=== PATIENT | female | born 1995 | race Caucasian/White ===

== ENCOUNTER 2020-09-28 17:40 | Emergency (ER) | payer MEDICAID, SELFPAY ==
[2020-09-28] VITALS (19 sets, daily range): BP systolic 93–138; BP diastolic 51–115; PULSE 56–80; RESP 13–23; TEMP 36.5; O2SAT 10–100
--- NOTE | 2020-09-28 17:30 | RT.EKG_ITS ---
APPROVED REPORT Exam: Resting ECG Reason for Exam: syncopy Patient Location: E HR:61 bpm ECG Measurements Heart Rate 61 AXIS ME 160 P 8 QRSd 96 QRS 52 QT 399 T 50 QTc 403 Conclusion Sinus rhythm...normal P axis, V-rate 60- 99
[2020-09-28] MEDS: Normal Saline Flush 10 ML SYR IVP (18:00)
[2020-09-28] MEDS: Normal Saline 1,000 ML 1000 ML IV (18:00)
[2020-09-28] MEDS: Ondansetron 4 MG/2 ML VIAL IVP (18:00)
--- NOTE | 2020-09-28 18:00 | DI.CT_ITS ---
Exam(s) CT HEAD CERVICAL SPINE WO EXAM: CT HEAD CERVICAL SPINE WO CLINICAL HISTORY: Syncope, mild neck pain. TECHNIQUE: Imaging Protocol: Axial computed tomography images with coronal and sagittal reformatted images were created and reviewed COMPARISON: No exams were available for comparison FINDINGS: BRAIN: There are no skull fractures nor fluid in the visualized paranasal sinuses. There is no evidence of intracranial hemorrhage, mass effect, or shift of midline structures. There are no extra-axial fluid collections. The ventricles are not enlarged or shifted and there is no blo od within the ventricular system nor within the basal cisterns. Incidentally noted are symmetrical benign-appearing bony variants in both sides middle cranial fossa just anterior to the temporal lobes. CERVICAL SPINE: There is no evidence of fracture nor listhesis. No significant prevertebral soft tissue swelling. There is no significant facet joint malalignment. No significant osseous lesions evident. IMPRESSION: No acute intracranial findings on this noninfused CT scan of the brain. No evidence of cervical spine fracture, malalignment, nor acute compromise of the cervical spinal can al. Incidentally noted are symmetrical addition bone densities both sides of the intracranial compartment anterior to the temporal lobes. This is developmental in appearance and unrelated to the present tr auma. RADIATION DOSE DELIVERED: 1,463.31mGy.cm Total DLP DATA REPOSITORY: All CT scans at this facility are submitted to the National Radiology Data Registry (NRDR) Dose Index Registry (DIR) with the [employer] (A[employer]). RADIATION OPTIMIZATION: All CT scans at this facility use at least one of these dose optimization te chniques: automated exposure control; mA and/or kV adjustment per patient size (includes targeted exa ms where dose is matched to clinical indication); or iterative reconstruction.
--- NOTE | 2020-09-28 18:00 | DI.RAD_ITS ---
Exam(s) XR CHEST 2V PA LATERAL EXAM: XR CHEST 2V PA LATERAL CLINICAL HISTORY: syncope. TECHNIQUE: 2D digital imaging was performed. COMPARISON: No exams were available for comparison FINDINGS: Heart size is normal. The mediastinum is not widened. Lungs are clear. No infiltrates nor pleural effusions. IMPRESSION: No acute pulmonary findings. DATA REPOSITORY: RADIATION DOSE DELIVERED:
--- NOTE | 2020-09-28 18:13 | ED.GENADUL_ITS ---
Discharge Plan Disposition Patient Disposition: HOME Condition: Improving Discharge Details Clinical Impression: Vasovagal syncope ED Provider: Polo Carreon Home Meds and New Rx's Prescriptions: Continued Nexplanon 68 mg Implant SUBDERMAL RF: 0 Discharge Instructions Instructions: Syncope (ED) Additional Instructions: We will ask career based intervention coordinator to arrange a follow-up for you in primary care clinic. I recommend you avoid using concentrated marijuana products as they can cause cardiac toxicity. Home to rest this evening. Your work-up today including CAT scan of the head, chest x-ray and laboratories were reassuring. Small, frequent sips of fluids to maintain hydration. Medical Decision Making 25-year-old female presents from home. She states she had to marijuana pipe dabs, which she states is not unusual for her. She feels she gets it from a stable source. Following this she was standing in her kitchen, felt flushed and tingly, became lightheaded and sank to the floor with the assist of family. She believes she was briefly unconscious. She had nausea and vomiting briefly. Patient denies having chest pain, no headache. She is now feeling improved. She was ER with blood pressure proxy 100/50 when I interview her. Her exam is reassuring. Differential diagnosis is broad and includes vasoVagal mediated syncope, dehydration, electrolyte abnormality, substance abuse. Patient IV access established, screening EKG obtained she is referred for CT scan of the head, screening chest x-ray, laboratories and urinalysis. Labs note slight low potassium 3.3. Reassuring CBC. Troponin negative. Imaging: Chest x-ray no acute findings. CT scan of the head and cervical spine without acute intracranial abnormality and no acute fracture or malalignment seen. Patient improved, ate and drank fluids, felt better. I do feel she is for discharge to home. We will arrange outpatient follow-up for her in primary care clinic. She is admonished to avoid concentrated marijuana products. Lab Data Lab results reviewed: Yes I reviewed the patient's lab results. Labs: Laboratory Results - last 24 hr 09/28/20 09/28/20 09/28/20 18:00 18:00 18:25 WBC 9.32 RBC 4.63 Hgb 14.0 Hct 42.5 MCV 91.8 MCH 30.2 MCHC 32.9 RDW 11.7 Plt Count 277 MPV 9.2 Immature Gran % 0.8 Neutrophils % 63.5 Lymphocytes % 23.2 Monocytes % 9.3 Eosinophils % 2.4 Basophils % 0.8 Nucleated RBC % 0 Absolute Neutrophils 5.93 Absolute Lymphocytes 2.16 Absolute Monocytes 0.87 H Absolute Eosinophils 0.22 Absolute Basophils 0.07 Sodium 142 Potassium 3.3 L Chloride 105 Carbon Dioxide 28.2 Anion Gap 8.8 BUN 8 Creatinine 1.1 H Estimated GFR/1.73 m2 >= 60.00 Glucose 93 Calcium 8.7 Magnesium 2.0 Total Bilirubin 1.0 AST 10 L ALT 20 Alkaline Phosphatase 70 Troponin I < 0.05 Total Protein 7.9 Albumin 4.1 Urine Color Yellow Urine Clarity Clear Urine pH 6.5 Ur Specific [place] 1.020 Urine Protein 30 H Urine Ketones Negative Urine Blood Negative Urine Nitrite Negative Urine Bilirubin Negative Urine Urobilinogen 0.2 Ur Leukocyte Esterase Negative Urine RBC 0-2 Urine WBC 3-5 Ur Epithelial Cells Moderate Urine Crystals Negative Urine Bacteria Few Urine Casts 0-2 hyaline Urine Mucus Negative Ur Culture Indicated? No/sq. contamination Urine Glucose Negative HPI General Mode of arrival: EMS . Date/Time Provider Initiated Documentation: 09/28/20 17:43 . Limitations to Documentation: no limitations . Information obtained by: patient and EMS . History of Present Illness 25 year old F presents to the emergency department with the chief complaint of Syncope and vomiting, described as moderate, and is localized to the abdomen. Patient reports no radiation. Patient started experiencing this minute(s) and it has been now resolved. No relieving factors improve symptom(s), Movement worsens symptoms . Patient notes nausea/vomiting and syncope; denies chest pain, headaches, loss of appetite and shortness of breath. Patient did receive the following treatments prior to arrival, none Related Data Home Medications Medication Instructions Recorded Confirmed Nexplanon SUBDERMAL 09/28/20 Allergies Allergy/AdvReac Type Severity Reaction Status Date / Time ciprofloxacin AdvReac Intermediate Nausea Unverified 09/28/20 18:30 General Stated Complaint: Dizzy/Sync VERN: 2 Review of Systems Narrative: 6 systems reviewed and otherwise neg PFSH Social History Smoking risk assessment performed?: No Alcohol Intake: never Drug use: Daily Substance use type: marijuana Do you feel safe at home: Yes Do you feel safe in your relationship?: Yes Exam Narrative Exam Narrative: GEN: awake, alert, oriented 3. Pleasant, well groomed, interactive. HEAD: Normocephalic, atraumatic ENT: Mucous membranes moist, oropharynx unremarkable, External ear exam u nremarkable EYES: PERRL, EOMI NECK: Full ROM, no RAFAEL, no menigismus CHEST/RESP: Nontender, clear to auscultation bilateral, no wheeze/rhonchi/rales CARDIOVASCULAR: RRR, no murmur, rub chriss. 2+ Rad pulse bilateral ABDOMEN: Soft, nontender, no mass. +Bowel sounds EXT: Full ROM, no edema, no rash Neuro: Grossly normal neurologic exam, conversant, interactive. Psych: Speech fluent, thoughts congruent, affect normal Course Vital Signs Vital signs: Vital Signs Temperature 36.5 C 09/28/20 17:52 Pulse 80 09/28/20 17:52 Respiratory Rate 16 09/28/20 17:52 Blood Pressure 135/115 H 09/28/20 17:52 Pulse Oximetry 10 L 09/28/20 17:52 Temperature 36.5 C 09/28/20 17:52 Temperature Source Skin 09/28/20 17:52 Pulse 80 09/28/20 17:52 Respiratory Rate 16 09/28/20 17:52 Blood Pressure 135/115 H 09/28/20 17:52 Blood Pressure Position Supine 09/28/20 17:52 Pulse Oximetry 10 L 09/28/20 17:52 Oxygen Delivery Method Room Air 09/28/20 17:52 Oxygen Flow Rate 0 09/28/20 17:52 Pain Level 0 09/28/20 17:52
[2020-09-28 18:18] LABS: Abs Immature Grans 0.07 10^3/uL (0.0-0.06); Absolute Basophil Count 0.07 10^3/uL (0.0-0.2); Absolute Eosinophil Count 0.22 10^3/uL (0.0-0.7); Absolute Lymphocyte Count 2.16 10^3/uL (1.2-3.4); Absolute Monocyte Count 0.87 10^3/uL (0.1-0.8); Absolute Neutrophil Count 5.93 10^3/uL (1.2-6.7); Basophils % 0.8; Eosinophils % 2.4; HCT 42.5 % (36.0-46.0); Immature Grans % 0.8; Lymphocytes % 23.2; MCH 30.2 pg (27.0-33.0); MCHC 32.9 % (32.0-36.0); MCV 91.8 fL (80-95); MPV 9.2 fL (8.0-11.0); Monocytes % 9.3; Neutrophils % 63.5; Nucleated RBC 0 %; Platelet Count 277 10^3/uL (130-400); RBC 4.63 10^6/uL (3.93-5.22); RDW 11.7 % (11.7-14.6); RDW-SD 39.8 fL; WBC 9.32 10^3/uL (4.4-10.8)
[2020-09-28 18:35] LABS: ALT 20 U/L (14-59); AST 10 U/L (15-37); Albumin 4.1 g/dL (3.4-5.0); Alkaline Phosphatase 70 U/L (46-116); Anion Gap 8.8 mmol/L (3-11); BUN 8 mg/dL (7-18); CO2 28.2 mmol/L (21.0-32.0); CREATININE 1.1 mg/dL (0.55-1.02); Calcium 8.7 mg/dL (8.5-10.1); Chloride 105 mmol/L (98-107); Glucose 93 mg/dL (74-106); Potassium 3.3 mmol/L (3.5-5.1); Sodium 142 mmol/L (136-145); Total Protein 7.9 g/dL (6.4-8.2)
[2020-09-28 18:36] LABS: Troponin I < 0.05 ng/mL (<0.06)
[2020-09-28 18:46] LABS: Bilirubin Negative (Negative); Blood Negative (Negative); Clarity Clear (Clear); Glucose Negative (Negative); Ketones Negative (Negative); Leukocyte Esterase Negative (Negative); Nitrite Negative (Negative); Urobilinogen 0.2 EU/dL (Up TO 0.2); pH 6.5 (5-8)
[2020-09-28 18:57] LABS: Bacteria Few HPF (Negative); C & S Indicated? No/Sq. Contamination; Casts 0-2 Hyaline LPF (Negative); Crystals Negative HPF (Negative); Epithelial Cells Moderate HPF (Negative); Mucus Negative (Negative); RBC 0-2 HPF (0-2)
--- NOTE | 2020-09-28 19:13 | DI.VRAD_ITS ---
PROCEDURE INFORMATION: Exam: XR Chest Exam date and time: 09/28/2020 6:48 PM Age: 25 years old Clinical indication: Other: Syncope TECHNIQUE: Imaging protocol: XR of the chest. Views: 2 views. COMPARISON: No relevant prior studies available. FINDINGS: Lungs: Unremarkable. No consolidation. Pleural spaces: Unremarkable. No pleural effusion. No pneumothorax. Heart/Mediastinum: Unremarkable. No cardiomegaly. Bones/joints: Unremarkable. IMPRESSION: No acute findings. Dictated and Authenticated by: Aj Rabago MD. Ordering:DEEP Cuellar MD
--- NOTE | 2020-09-28 19:22 | NUR.NOTE ---
Nursing Notereferal sent to cm for establish pcp and make appt for syncope 09/28/20:
--- NOTE | 2020-09-28 19:26 | DI.VRAD_ITS ---
PROCEDURE INFORMATION: Exam: CT Head Without Contrast Exam date and time: 09/28/2020 6:11 PM Age: 25 years old Clinical indication: Other: Syncope, mild neck pain TECHNIQUE: Imaging protocol: Computed tomography of the head without contrast. Total images: 2336 Radiation optimization: All CT scans at this facility use at least one of these dose optimization techniques: automated exposure control; mA and/or kV adjustment per patient size (includes targeted exams where dose is matched to clinical indication); or iterative reconstruction. COMPARISON: No relevant prior studies available. FINDINGS: Brain: No intra or extra axial bleed. No edema or mass effect. The central garcia structures and cortical ribbon are maintained. Cerebral ventricles: No hydrocephalus. Basal cisterns are patent. Bones/joints: No significant bony abnormality. No fracture. Paranasal sinuses: No mucosal thickening or fluid levels. Mastoid air cells: Mastoid air cells are clear. Orbital cavity: Unremarkable. Soft tissues: Unremarkable. IMPRESSION: No acute intracranial abnormality. No bleed. PROCEDURE INFORMATION: Exam: CT Cervical Spine Without Contrast Exam date and time: 09/28/2020 6:11 PM Age: 25 years old Clinical indication: Other: Syncope, mild neck pain TECHNIQUE: Imaging protocol: Computed tomography images of the cervical spine without contrast. Radiation optimization: All CT scans at this facility use at least one of these dose optimization techniques: automated exposure control; mA and/or kV adjustment per patient size (includes targeted exams where dose is matched to clinical indication); or iterative reconstruction. COMPARISON: No relevant prior studies available. FINDINGS: Bones/joints: Straightening of spine which may be due to spasm. No fracture. No subluxation. Discs/Spinal canal/Neural foramina: No significant disc protrusion. No severe spinal canal stenosis. No significant neural foraminal narrowing. Epidural space: No gross epidural hemorrhage. Prevertebral Space: No prevertebral soft tissue swelling. Lungs: No apical pneumothorax. Soft tissues: Unremarkable. IMPRESSION: No acute fracture. Dictated and Authenticated by: Polo Soto MD. Ordering:DEEP Cuellar MD
--- NOTE | 2020-10-01 17:54 | CMPROGNOTE_ITS ---
- If Service Date Differs Date of service: 10/01/20 Time of Service: 17:54 Care Management Progress Note Ann is seen in the ED for syncope. At the request of ED provider, GRAHAM coordinates a referral to CLAIR Altman, of [facility], on- call provider, to assist Ann in obtaining a follow up appointment and in establishing care with a PCP. She has Medicaid for insurance.
== END 2020-09-28 19:45 | disposition home or self-care (01) ==
LOC: ER 19:44
PROVIDERS: Emergency Provider Emergency Medicine
DX: R55 Syncope and collapse (principal); R11.0 Nausea
CPT/HCPCS: 36415; 80053; 81025; 93005; 96361; 96374; 99284; 70450; 71046; 72125; 81003; 81015; 83735; 84484; 85025; 93010; 99283; J2405

== ENCOUNTER 2020-12-08 20:05 | Emergency (ER) | payer MEDICAID, SELFPAY ==
[2020-12-08 20:16] VITALS: BP 123/64; PULSE 79; RESP 16; TEMP 36.8; O2SAT 97
--- NOTE | 2020-12-08 20:25 | ED.GENADUL_ITS ---
Discharge Plan Disposition Patient Disposition: HOME Condition: Good Discharge Details Clinical Impression: Dental infection, Dental caries Primary Care Provider: None,None ED Provider: Jeny Zuñiga Home Meds and New Rx's Prescriptions: New amoxicillin-pot clavulanate [Augmentin] 875-125 mg tablet 1 tab PO BID Qty: 13 RF: 0 Continued Nexplanon 68 mg Implant 1 implant SUBDERMAL RF: 0 Discharge Instructions Instructions: Amoxicillin/Clavulanate Potassium (By mouth), Dental Caries (ED) Additional Instructions: You have a broken dark area on the backside of one of your teeth. And continue you are developing an infection.. Please take antibiotics as prescribed. Even if symptoms improve, please take entire course. You will need definitive care with a dentist. Attached is a list of local dentist, please call to schedule follow-up appointment as soon as possible. If you develop fever/chills, increased swelling, increased pain, difficult swallowing, shortness of breath or new/worsening symptoms please seek Medical Decision Making Patient is a pleasant 25-year-old female presenting today with chief complaint of right lower dental pain. She denies any fevers or chills. States the pain initially began approximately 3 weeks ago but that it is greatly increased over the past few days. No radiation of pain. No swelling. No shortness of breath or difficulty breathing. On exam, patient has a darkened hole in the posterior aspect of the #31 tooth. This appears to be the area of discomfort. Not appreciate any swelling, fluctuance or abscess-like features. Posterior pharynx is normal. No trismus. No swelling under the tongue. No lymphadenopathy. Concerned that the patient's discomfort is increasing secondary to infection. We will begin on antibiotics. I did encourage close follow-up with dentist, list of local dentist will be given to the patient. Return precautions were discussed. All her questions and concerns were addressed and she is in agreement this plan. Patient will be placed on Augmentin. UPT negative. HPI General Mode of arrival: ambulatory . Date/Time Provider Initiated Documentation: 12/08/20 20:25 . Limitations to Documentation: no limitations . Information obtained by: patient and RN notes reviewed . History of Present Illness 25 year old F presents to the emergency department with the chief c omplaint of dental pain, described as moderate, with intensity rated at 7. Quality is described as aching, and is localized to the mouth. Patient reports no radiation. Patient started experiencing this week(s) and it has been constant. No relieving factors improve symptom(s), Eating worsens symptoms . Patient notes no other symptoms.; denies fever/chills. Patient did receive the following treatments prior to arrival, none Related Data Home Medications Medication Instructions Recorded Confirmed Nexplanon 1 implant SUBDERMAL 09/28/20 amoxicillin-pot clavulanate 1 tab PO BID #13 tab 12/08/20 [Augmentin] Previous Rx's Medication Instructions Recorded amoxicillin-pot clavulanate 1 tab PO BID #13 tab 12/08/20 [Augmentin] Allergies Allergy/AdvReac Type Severity Reaction Status Date / Time ciprofloxacin AdvReac Intermediate Nausea Unverified 12/08/20 20:19 General Stated Complaint: DentalOral VERN: 4 Review of Systems Constitutional Constitutional: Reports as per HPI, Denies chills, Denies fatigue, Denies fever(s), Denies headache(s) and Denies poor appetite Eyes Eyes: Denies change in vision and Denies irritation ENT Ears, Nose, Mouth, and Throat: Reports as per HPI, Reports dental pain, Denies dysphagia, Denies dry mouth, Denies ear discharge, Denies otalgia, Reports facial pain, Denies headache(s), Denies hoarseness, Denies lip swelling, Denies nasal congestion, Denies odynophagia and Denies sore throat Gastrointestinal Gastrointestinal: Reports as per HPI, Denies dysphagia, Denies nausea, Denies odynophagia and Denies vomiting Integumentary/Breasts Skin/Breast: Reports as per HPI, Denies erythema, Denies rash and Denies skin pain Neurologic Neurologic: Reports as per HPI and Denies headache(s) Endocrine Endocrine: Denies fatigue Allergic/Immunologic Allergic/Immunologic: Denies lip swelling [facility] Social History Smoking/Tobacco Use Status: Current every day Tobacco Type: cigarettes and e-cigarettes Smoking risk assessment performed?: Yes Alcohol Intake: never Drug use: Daily Substance use type: marijuana Do you feel safe at home: Yes Do you feel safe in your relationship?: Yes Exam Const General: cooperative, healthy appearing, comfortable, no acute distress, well developed and well groomed Nutritional Appearance: well nourished and overweight Orientation: alert and awake [facility] Head: normal to inspection, normocephalic and atraumatic Ears: hearing grossly normal bilaterally, external ears normal and TM's normal bilaterally General nose exam: external nose normal and nares normal Face and sinus: normal facial exam, sinuses nontender and face symmetric Teeth image: 1. Broken piece of tooth that is dark and centrally consistent with a dental carry. Patient has pain with palpation along both the buccal and lingual side of the gingiva near the tooth. No swelling, fluctuance, discoloration. No swelling under the tongue, posterior oropharynx is normal Throat: posterior oropharynx normal, tonsils normal and uvula midline Eyes General: appearance normal, both eyes and all related structures Neck Neck: normal visual inspection, full ROM, no lymphadenopathy, supple and no anterior neck swelling Resp Effort & Inspection: normal respiratory effort, able to speak in complete sentences and no respiratory distress Skin General skin exam: no rashes or lesions noted Trauma: no lacerations or abrasions Neuro General: patient alert and patient awake Cognition: normal cognition Speech: speech normal Gait: normal gait Psych Appearance: grossly normal and well kempt Mental Status: mental status grossly normal Speech and Movement: speech and movement normal Course Vital Signs Vital signs: Vital Signs Temperature 36.8 C 12/08/20 20:16 Pulse 79 12/08/20 20:16 Respiratory Rate 16 12/08/20 20:16 Blood Pressure 123/64 12/08/20 20:16 Pulse Oximetry 97 12/08/20 20:16 Temperature 36.8 C 12/08/20 20:16 Temperature Source Temporal Artery Scan 12/08/20 20:16 Pulse 79 12/08/20 20:16 Respiratory Rate 16 12/08/20 20:16 Respiratory Effort Non-Labored 12/08/20 20:21 Blood Pressure 123/64 12/08/20 20:16 Blood Pressure Position Sitting 12/08/20 20:16 Pulse Oximetry 97 12/08/20 20:16 Oxygen Delivery Method Room Air 12/08/20 20:16 Oxygen Flow Rate 0 12/08/20 20:16 Pain Level 7 12/08/20 20:16
[2020-12-08] MEDS: Amoxicillin 875/Clav. 125 TAB PO (20:41)
== END 2020-12-08 20:59 | disposition home or self-care (01) ==
PROVIDERS: Emergency Provider Physician Assistant
DX: K04.7 Periapical abscess without sinus (principal); K02.9 Dental caries, unspecified
CPT/HCPCS: 81025; 99283

== ENCOUNTER 2020-12-27 05:32 | Emergency (ER) | payer MEDICAID, SELFPAY ==
[2020-12-27 05:34] VITALS: BP 125/78; PULSE 73; RESP 16; TEMP 36.8; O2SAT 98
--- NOTE | 2020-12-27 05:39 | W.ED.GENAD ---
Discharge Plan Disposition Patient Disposition: HOME Condition: Stable Discharge Details Clinical Impression: Pain, dental Primary Care Provider: None,None ED Provider: Suraj Tolentino Home Meds and New Rx's Prescriptions: New amoxicillin-pot clavulanate [Augmentin] 875-125 mg tablet 1 tab PO BID Qty: 14 RF: 0 Continued Nexplanon 68 mg Implant 1 implant SUBDERMAL RF: 0 Discharge Instructions Instructions: Toothache (ED) Additional Instructions: follow up with a dentist as soon as possible if you feel more ill, have difficulty swallowing liquids or fevers return to the emergency department you can take 1000mg tylenol and 600mg ibuprofen every 6 hours for pain as needed Medical Decision Making 25 yo female who recently finished antibiotics for dental pain comes in with continued right posterior molar pain. Denies fevers and no difficulty swallowing. HAs no submandibular swelling, no pain over the hyoid, normal tm's, no restricted neck movements, perrl, eomi without pain. HAs no significant swelling in the mouth or visible abscess, does have pain with percussion over the posterior right lower molar and this has caries. 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 Will restart abx and stressed importance of f/u with dentist, return precautions given Differential Diagnosis Differential Diagnosis: caries, pulpitis Medical Records Medical records reviewed: Yes I reviewed the patient's medical records. HPI General Mode of arrival: ambulatory. Date/Time Provider Initiated Documentation: 12/27/20 05:33. Limitations to Documentation: no limitations. Information obtained by: patient. History of Present Illness 25 year old F presents to the emergency department with the chief complaint of dental pain, described as moderate, and is localized to the mouth. Patient reports no radiation. and it has been constant. No relieving factors improve symptom(s), No exacerbating factors reported . Patient notes no other symptoms.. Related Data Home Medications Medication Instructions Recorded Confirmed Nexplanon 1 implant SUBDERMAL 09/28/20 amoxicillin-pot clavulanate 1 tab PO BID #14 tab 12/27/20 [Augmentin] Previous Rx's Medication Instructions Recorded amoxicillin-pot clavulanate 1 tab PO BID #14 tab 12/27/20 [Augmentin] Allergies Allergy/AdvReac Type Severity Reaction Status Date / Time ciprofloxacin AdvReac Intermediate Nausea Unverified 12/27/20 05:40 General VERN: 4 Review of Systems All systems reviewed & are unremarkable except as noted in HPI and below Constitutional Constitutional: Denies chills, Denies fever(s) and Denies weakness Cardiovascular Cardiovascular: Denies chest pain and Denies dyspnea Respiratory Respiratory: Denies cough and Denies dyspnea Gastrointestinal Gastrointestinal: Denies abdominal pain, Denies nausea and Denies vomiting Musculoskeletal Musculoskeletal: Denies joint swelling Neurologic Neurologic: Denies weakness PFS Social History Smoking/Tobacco Use Status: Current every day Tobacco Type: cigarettes and e-cigarettes Smoking risk assessment performed?: Yes Alcohol Intake: never Drug use: Daily Substance use type: marijuana Do you feel safe at home: Yes Do you feel safe in your relationship?: Yes Exam Const General: no acute distress Orientation: alert HENMT Head: normal to inspection Ears: external ears normal General nose exam: external nose normal Mouth: moist mucous membranes Eyes General: appearance normal, both eyes and all related structures Neck Neck: normal visual inspection Resp Effort & Inspection: normal respiratory effort and able to speak in complete sentences Cardio Rate: regular rate Skin General skin exam: no rashes or lesions noted Neuro General: patient alert and patient oriented x3 Extrem General: normal to inspection Psych Mental Status: mental status grossly normal
== END 2020-12-27 06:00 | disposition home or self-care (01) ==
LOC: ER 05:54
PROVIDERS: Emergency Provider Emergency Medicine; PCP Family Medicine
DX: R68.84 Jaw pain (principal); K08.89 Other specified disorders of teeth and supporting structures
CPT/HCPCS: 99283

== ENCOUNTER 2021-10-07 10:58 | Outpatient (REF) | payer MEDICAID, SELFPAY ==
--- NOTE | 2021-10-07 10:45 | PAPFT_PTH ---
PATIENT: Ann Zhang LOC: [facility] U#:[id number] AGE/SX: 26/F ROOM: RE10/07/[address]: CLAIR Lowe : 1995 BED: DIS: 10/07/2021 SPEC #: [id number] RECD: 10/07/21 12:55 STATUS: SEE REQ #: [id number] KEVIN: 10/07/21 10:[address]: Florence Wang DEPT: [facility] Cytology RECD BY: Felipa Akers ENTERED: 10/07/21 12:55 SP TYPE: PAPFT OTHR DR: Hi Cadena Tissues: 1 - CX/ENDOCX FOR PAP SMEARS Procedures: PAP THIN PREP/[facility] Screening Comments: [id number]
[2021-10-10 14:55] LABS: GC Result Negative (Negative)
[2021-10-10 15:42] LABS: Chlamydia Result Positive (Negative)
== END 2021-10-07 10:59 | disposition home or self-care (01) ==
LOC: LBN 10:58
PROVIDERS: PCP Family Medicine; Visit Provider Nurse Practitioner Family
DX: Z11.3 Encounter for screening for infections with a predominantly sexual mode of transmission (principal); Z12.4 Encounter for screening for malignant neoplasm of cervix; R87.612 Low grade squamous intraepithelial lesion on cytologic smear of cervix (LGSIL)
CPT/HCPCS: 87491; 87591; 88142

== ENCOUNTER 2021-11-14 11:46 | Outpatient (REF) | payer MEDICAID, SELFPAY ==
--- NOTE | 2021-11-14 11:00 | CER_PTH ---
PATIENT: Ann Zhang LOC: N U#:[id number] AGE/SX: 26/F ROOM: RE11/14/[address]: Priscila Vasquez MD : 1995 BED: DIS: 11/14/2021 SPEC #: [id number] RECD: 11/14/21 13:44 STATUS: SEE REQ #: [id number] KEVIN: 11/14/21 11:[address]: Priscila Vasquez DEPT: Surgical Specimen RECD BY: Jody Esposito ENTERED: 11/14/21 13:45 SP TYPE: CER OTHR DR: Hi Cadena Tissues: 1 - CERVICAL BIOPSY Procedures: GROSS AND MICRO LEVEL 4 Comments: [id number]
--- OUTSIDE RECORDS SUMMARY | 2021-11-14 11:58 | XMS_ITS | Encounter Summary ---
:1995 Author Organization [facility] Address [address] [place] [address] Care Team Providers Name Role Phone Hi Cadena MD Primary Care Provider Reason for Visit Reason Comments Contraception Nexplanon emoval Encounter Details Date Type Department Care Team Description 03/28/2021 Office Visit [facility] - Payal Talbot Ne xplanon removal (Primary Dx); [facility] SHANK MAKER Encounter for screening for infections w ith predominantly sexual mode of transmission; [address] Screening examination for parasitic infe ction; [place] [address] [address] Breakthrough bleeding on Nexplanon; [phone] [place], [place] Pre-conception counseling [phone] Social History Tobacco Use Types Packs/Day Years Used Date Current Some Day Smoker Cigarettes Smokeless Tobacco: Never Used Comments: quit with , smokes 5- 10 a day Alcohol Use Standard Drinks/Week Comments Yes 0 (1 standard drink = 0.6 oz pure alcoho l) Rarely Alcohol Habits Answer Date Recorded How often do you have a drink containing alcohol? Never 11/11/2018 How many drinks containing alcohol do you have on a typical Not asked day when you are drinking? How often do you have six or more drinks on one occasion? No t asked Comment: Rarely 03/28/2021 Food Insecurity Answer Date Recorded Within the past 12 months, you worried that your food would Never true 06/29/2019 run out before you got money to buy more. Within the past 12 months, the food you bought just didn't N ever true 06/29/2019 last and you didn't have money to get more. Sex Assigned at Date Recorded Not on file COVID-19 Exposure Response Date Recorded In the last month, have you been in contact with No / Unsure 03/28/2021 9:39 EST someone who was confirmed or suspected to have Coronavirus / COVID-19? documented as of this encounter Last Filed Vital Signs Vital Sign Reading Time Taken Comments Blood Pressure 110/64 03/28/2021 0939 EST Pulse - - Temperature - - Respiratory Rate 20 03/28/2021 09 EST Oxygen Saturation - - Inhaled Oxygen Concentration - - Weight 119.7 kg (264 lb) 03/28/2021 09 EST Height 182.9 cm (6') 03/28/2021 09 EST Body Mass Index 35.8 03/28/2021 09 EST documented in this encounter Functional Status Functional Status Response Date of Assessment Are you deaf or do you have serious difficulty hearing? No 09/06/2018 Are you blind or do you have serious difficulty seeing, No 09/06/2018 even when wearing glasses? Do you have serious difficulty walking or climbing No 09/06/2018 stairs? (5 years old or older) Do you have difficulty dressing or bathing? (5 years old No 09/06/2018 or older) Because of a physical, mental, or emotional condition, do No 09/06/2018 you have difficulty doing errands alone such as visiting a doctor's office or shopping? (15 years old or older) Cognitive Status Response Date of Assessment Because of a physical, mental, or emotional condition, do No 09/06/2018 you have serious difficulty concentrating, remembering, or making decisions? (5 years old or older) documented as of this encounter Progress Notes Payal Talbot, CUSTOMER RELATIONSHIP SPECIALIST - 03/28/2021 0920 EST Subjective: Patient is here for Nexplanon removal. Reasons for removal irregular bleeding- bleeds for 2-3 days and then stops for a few days and then starts to bleed again. Initially had no bleeding for 2 years. Nobleeding for past 2 weeks. Was treated for Gonorrhea at hospital in [place] 04/2020 New partner for 6-7 months. Planned contraception- OK if it happens STI risks and last screening urine sent today Objective: BP 110/64 Resp 20 Ht 182.9 cm (72) Wt (!) 119.7 kg (264 lb) BMI 35.80 kg/m?? General Appearance: no acute distress, pleasant, cooperative Skin: warm & dry Neurologic exam: alert & oriented, gait normal Procedure Note: Nexplanon Removal Reviewed procedure and risk of discomfort, localized infection including signs & symptoms of infection, scarring,and bleeding. All questions answered and written consent obtained. Implant palpated in left arm. Site prepped with betadine x3. 3 mL 1% Lidocaine with epi injected subcutaneously below implant. Small incision made with #15 scalpel. Implant pushed to incision site and grasped with mosquito forceps and gently removed. Sharp/blunt dissection was needed. The 4 cm implant was removed in its entirety and shown to patient. Steri-strips and tegaderm placed over the incision. Pressure dressing then applied. Assessment: Nexplanon Removal STI screen Pre-conception counseling Breakthrough bleeding on Nexplanon Plan: Leave pressure bandage on and defer bath or shower for 24 hours. Steri-strips and tegaderm may be removed after 72 hours. Ibuprofen 400 to 600 mg every 6 hours with food as needed for discomfort. Begin PNVs now Dirty urine sent for GC/CT Follow up as needed/ Payal Talbot APRN documented in this encounter Miscellaneous Notes Addendum Note - Rosemary Zuleta RN - 03/28/2021 0920 EST Addended by: ROSEMARY ZULETA on: 03/28/2021 10:56 Modules accepted: Orders documented in this encounter Plan of Treatment Not on filedocumented as of this encounter Procedures Procedure Name Priority Date/Time Associated Diagnosis Comme nts TRICHOMONAS Routine 03/28/2021 9:45 Screening examination Res ults for this [place]AG[place]ALIS PCR [place] [facility] [place] for parasitic proced ure are in infection the results section. CHLAMYDIA/N. Routine 03/28/2021 9:45 Encounter for Results for this GONORRHOEAE EST screening for procedure are in AMPLIFIED RNA infections with the results predominantly sexual section . mode of transmission documented in this encounter Results TRICHOMONAS VAGINALIS [place] [facility] (03/28/2021 9:45 EST) Trichomonas Not Not Detected [facility] Vaginalis, PCR DetectedComment: [facility] Xpert TV assay performance has not been evaluated in women or in patients with a history of hysterectomy. Specimen Swab - Urine (substance) Performing Organization Address City/[facility]/ZIP Code Phon e Number [facility] [address] [place] [address] CHLAMYDIA/N. GONORRHOEAE AMPLIFIED RNA (03/28/2021 9:45 EST) Pathologist Sig nature Gonococcus Result Negative Negative [facility] Chlamydia Result Negative Negative [facility] Specimen Urine - Urine, Dirty Urine Narrative [facility] - 021 16:45 EST A first catch urine specimen is acceptable for detection of Gonorrhea and Chlamydia, but might detect up to 10% fewer infections when compared with vaginal and endocervical swab samples. ? ? Xpert CT/NG Assay performance has not been evaluated in patients less than 14 years of age. ? ? Xpert CT/NG Assay performance has not been evaluated in women, or in patients with a history of hysterectomy. Performing Organization Address City/[facility] Code Phon e Number [facility] [address] [place] [address] documented in this encounter Visit Diagnoses Diagnosis Nexplanon removal - Primary Surveillance of previously prescribed im plantable subdermal contraceptive Encounter for screening for infections w ith predominantly sexual mode of transmission Screening examination for venereal disea se Screening examination for parasitic infe ction Screening examination for other specifie d parasitic infections Breakthrough bleeding on Nexplanon Metrorrhagia Pre-conception counseling Other procreative management counseling and advice documented in this encounter Administered Medications Inactive Administered Medications - up to 3 most recent administrations Medication Order MAR Action Action Date Dose Rate Site lidocaine-EPINEPHrine 1 %-1:100,000 Given 03/28/2021 10:55 EST 3 mL injection 3 mL 3 mL, intradermal, NOW X1, 1 dose, On 03/28/21 at 1115, Routine documented in this encounter Discontinued Medications Medication Sig Discontinue Reason Start Date End Date Multivitamins with Take 1 Tab by mouth Therapy completed 03/28/2021 Minerals tablet tablet daily. omeprazole (PRILOSEC) 20 TAKE 1 CAPSULE BY Therapy completed 201903/28/2021 mg capsule MOUTH EVERY DAY TO PREVENT HEARTBURN traZODone (DESYREL) 50 TAKE 1 TABLET AT Therapy completed 0 03/28/2021 mg tablet BEDTIME NEEDED FOR SLEEP documented as of this encounter Orders Medications Ordered That Might Not Have Count Last Ord ered Date First Ordered Date Been Administered lidocaine-EPINEPHrine 1 %-1:100,000 1 03/28/2021 injection 3 mL documented in this encounter Care Teams Search Advertising Strategist Relationship Specialty Start Date End Date Hi Cadena MD PCP - General 05/20/18 documented as of this encounter
--- OUTSIDE RECORDS SUMMARY | 2021-11-14 11:58 | XMS_ITS | Encounter Summary ---
:1995 Author Organization [facility] Address [address] [place] [address] Care Team Providers Name Role Phone Hi Cadena MD Primary Care Provider Encounter Details Date Type Department Care Team Description 03/28/2021 Travel Social History Tobacco Use Types Packs/Day Years [...] / COVID-19? documented as of this encounter Functional Status Functional Status Response [...] or older) documented as of this encounter Plan of Treatment Not on filedocumented as of this encounter Visit Diagnoses Not on filedocumented in this encounter Care Teams Wood Heel Flap Rubber Relationship Specialty Start Date End Date Hi Cadena MD PCP - General 05/20/18 documented as of this encounter
--- OUTSIDE RECORDS SUMMARY | 2021-11-14 11:58 | XMS_ITS | Encounter Summary ---
:1995 Author Organization [facility] Address [address] [place] [address] Care Team Providers Name Role Phone Hi Cadena MD Primary Care Provider Reason for Referral Office Procedure (Routine/Next Available) - Specialty Report Received Specialty Diagnoses / Procedures Referred By Contact Refer red To Contact Neurology Diagnoses Syncope, unspecified syncope type Hi Cadena MD [facility] Lab Procedures EEG [address] [phone] Referral ID Status Reason Start Date Expiration Date Visits V isits Requested Authorized [id number] Specialty 03/11/2021 1 1 Report Received Reason for Visit Office Procedure (Routine/Next Available) - Specialty Report Received Specialty Diagnoses / Procedures Referred By Contact Refer red To Contact Neurology Diagnoses Syncope, unspecified syncope type Hi Cadena MD [facility] Lab Procedures EEG [address] [place], [place] [phone] Referral ID Status Reason Start Date Expiration Date Visits V isits Requested Authorized [id number] Specialty 03/11/2021 1 1 Report Received Encounter Details Date Type Department Care Team Description 03/23/2021 Hospital Encounter [facility] Syn cope, unspecified Neurophysiology - Main synco pe type [address] [address] Social History Tobacco Use Types Packs/Day Years Used Date Current Some Day Smoker Cigarettes Smokeless Tobacco: Never Used Comments: quit with , smokes 1- 2 a day Alcohol Use Standard Drinks/Week Comments No 0 (1 standard drink = 0.6 oz pure alcoho l) quit with Alcohol Habits Answer Date Recorded How often do you have a drink containing alcohol? Never 11/11/2018 How many drinks containing alcohol do you have on a Not aske d typical day when you are drinking? How often do you have six or more drinks on one Not asked occasion? Comment: quit with 01/31/2018 Food Insecurity Answer Date Recorded Within the past 12 months, you worried that your food would Never true 06/29/2019 run out before you got money to buy more. Within the past 12 months, the food you bought just didn't N ever true 06/29/2019 last and you didn't have money to get more. Sex Assigned at Date Recorded Not on file documented as of this encounter Functional Status [...] or older) documented as of this encounter Medications at Time of Discharge Medication Sig Dispensed Refills Start Date End Date acetaminophen (TYLENOL) Take 2 tablets by 0 09/07 325 mg tablet mouth every 4 hours as needed for Pain. escitalopram oxalate Take 1 Tab by mouth 90 Tab 0 2019 (LEXAPRO) 20 mg tablet daily. NEEDS APPT etonogestreL (NEXPLANON) Insert 68 mg 0 68 mg subdermal implant subdermally continuous IUD. hydrOXYzine (ATARAX) 25 Take 1 Tab by mouth 3 30 Tab 2 0 11/13/2018 mg tablet times daily as needed for Anxiety. ibuprofen (IBU-200) 200 Take 2 tablets by 0 09/07 mg tablet mouth every 4 hours as needed for Pain. Multivitamins with Take 1 Tab by mouth 0 03/28/2021 Minerals tablet tablet daily. omeprazole (PRILOSEC) 20 TAKE 1 CAPSULE BY 0 07/10/201903/28/2021 mg capsule MOUTH EVERY DAY TO PREVENT HEARTBURN traZODone (DESYREL) 50 TAKE 1 TABLET AT 0 11/19/ 020 03/28/2021 mg tablet BEDTIME NEEDED FOR SLEEP documented as of this encounter Discharge Disposition Disposition Code Departure Means Destination Home or Self Care documented in this encounter Procedure Notes Patricia Ang MD - 03/23/2021 1000 ESTAssociated Order(s): EEG [facility] Name: Ann Kerrugall Clinical Neurophysiology Laboratory [address] [facility] : 1995 [place], [place] Date: 03/23/2021 Electroencephalogram Report Referring Physician: Hi Cadena MD Study Number: [id number] Clinical Indication: Syncope. Medications: No outpatient medications have been marked as taking for the 03/23/21 encounter (Hospital Encounter)with Room-1, Eeg, ROAD CONSULTANT. See PRISM Technical Description: Standard EEG: An in-laboratory digital EEG is performed utilizing silver-silver chloride electrodes placed according to the International 10-20 system of electrode placement. CPZ serves as the recording reference electrode. The following additional electrodes are also placed: ECG electrodes , anterior temporal electrodes The study begins at 1027 until 1057 with a total study duration of 30 minutes. During this study the following states the followingwere recorded: Wake, Drowsy, Photic stimulation,Stage I Sleep, Stage II Sleep Subject factors: Cooperative The patient and/or caregivers report:8 hours of sleep night before study; Estimated average 8 hours of sleep Previous EEG Study? No Findings: Waking cerebral background activity is characterized by a posterior dominant rhythm of 12 Hz. It is symmetric, synchronous and reactive to eye opening. Diffuse, lower amplitude faster frequencies are recorded more anteriorly. Photic stimulation is performed. No abnormal findings are recorded. No hyperventilation is performed due to COVID restrictions. Stage N2 sleep is recorded characterized by sleep spindles and K-complexes. No interictal discharges or seizures are recorded. A single channel EKG is utilized. No abnormal rhythms are recorded. Impression: Normal EEG. A normal EEG does not exclude the presence of Epilepsy. If a concern does exist one may consider prolonged EEG monitoring. Patricia Ang MD ABPN Certified, Neurology and Clinical Neurophysiology 12:40 03/23/2021 documented in this encounter Plan of Treatment Not on filedocumented as of this encounter Procedures Procedure Name Priority Date/Time Associated Diagnosis Comme nts EEG Routine 03/23/2021 10:00 EST Syncope, unspecified Results for this syncope type procedure are i n the results section. documented in this encounter Results EEG (03/23/2021 10:00 EST) Narrative [facility] POINT [facility]ARE - 03/23/2021 10:00 E Patricia Murphy MD ? 03/23/2021 12:40 [facility] ??Name: Ann Roy [facility] Clinical Neurophysiology Laboratory ??MR N: [id number] [address] [place] [address] ? : 1995 [place], [place] ?Date: 2020 Electroencephalogram Report Referring Physician: Hi Cadena MD ? Study Number: [id number] Clinical Indication: ??Syncope. Medications: No outpatient medications have been billy ed as taking for the 03/23/21 encounter (Hospital Encounter) with Room-1, Eeg, ROAD CONSULTANT. See PRISM Technical Description: Standard EEG: An in-laboratory digital E EG is performed utilizing silver-silver chloride electrodes placed according to the International 10-20 system of electrode placement. ??CPZ serves as the recording reference electrode. The f ollowing additional electrodes are also placed: ECG electrod es , anterior temporal electrodes ?? The study begins at 1027 until 1057 with a total study duration of 30 minutes. During this study the following states t he followingwere recorded: Wake, Drowsy, Photic stimulati on, Stage I Sleep, Stage II Sleep Subject factors: Cooperative The patient and/or caregivers report:8 h ours of sleep night before study; Estimated average 8 hours of sleep Previous EEG Study? No Findings: Waking cerebral background activity is c haracterized by a posterior dominant rhythm of 12 Hz. It i s symmetric, synchronous and reactive to eye opening. Diffuse, lo wer amplitude faster frequencies are recorded more anteriorly . Photic stimulation is performed. No abno rmal findings are recorded. No hyperventilation is performed due to COVID restrictions. Stage N2 sleep is recorded characterized by sleep spindles and K-complexes. No interictal discharges or seizures are recorded. A single channel EKG is utilized. No abn ormal rhythms are recorded. Impression: Normal EEG. A normal EEG does not exclude the presen ce of Epilepsy. If a concern does exist one may consider prol onged EEG monitoring. Patricia Ang MD ABPN Certified, Neurology and Clinical N europhysiology 12:40 ??03/23/2021 Performing Organization Address City/State/ZIP Code Phon e Number [facility] POINT OF CARE documented in this encounter Visit Diagnoses Diagnosis Syncope, unspecified syncope type documented in this encounter Care Teams Candy Supervisor Relationship Specialty Start Date End Date Hi Cadena MD PCP - General 05/20/18 documented as of this encounter
--- OUTSIDE RECORDS SUMMARY | 2021-11-14 11:58 | XMS_ITS | Encounter Summary ---
:1995 Author Organization [facility] Address [address] [place] [address] Care Team Providers Name Role Phone Hi Cadena MD Primary Care Provider Encounter Details Date Type Department Care Team Description 10/10/2021 Lab Requisition [facility] Wang E ncounter for other Pathology & USED CAR LOT ATTENDANT general examination Laboratory Medicine [address] [place], [place] [address] [facility] [id number] [place], [place] [id number] Social History Tobacco Use Types Packs/Day Years [...] Name Priority Date/Time Associated Diagnosis Comme nts PAP TEST Today 10/07/2021 10:45 EDT Encounter for other Results for this general examination procedur e are in the results section. documented in this encounter Results PAP TEST (10/07/2021 10:45 EDT) Specimens A. Cervix and/or [facility] Endocervix , ThinPrep CENTER Imaging System with LABORATORY Manual Evaluation SERVICES Specimen Adequacy Satisfactory for [facility] Evaluation - [facility] transformation zone LABORATORY component present SERVICES General Epithelial Cell [facility] Categorization Abnormality CENTER LABORATORY SERVICES Descriptive Squamous Cell Abnormality - Low grade squamous intraepithelial lesion (LSIL). [facility] Diagnosis Trichomonas vaginalis present. [facility] LABORATORY SERVICES Educational Comments [facility] recommends following A SCCP's 2012 Updated Consensus Guidelines for the Management of Abnormal Cervical Cancer Screening Tests and Cancer Precursors (JLGTD, 2013; 17(5):S1-S27). Consensus guidelines are available online at www.asccp.org. [facility] LABORATORY SERVICES Attestation By the signature below, the attending physician certifies that they have personally conducted a gross and/or microscopic [facility] Electronically examination of the described specimens and rendered or confirmed the above diagnosis. CENTER signed by Florinda Best MD on 022 at 1038 Clinical History SEE BELOW [facility] LABORATORY SERVICES Performing Lab [facility] LAB [facility] LABOR[facility]ORY SERVICES Scanned Images [facility] LAB[facility] SERVICES Specimen Pap Test - Cervix and/or Endocervix Performing Organization Address City/State/ZIP Code Phon e Number [facility] [address] [place] [address] SERVICES documented in this encounter Visit Diagnoses Diagnosis Encounter for other general examination documented in this encounter Care Teams Independent Producer Relationship Specialty Start Date End Date Hi Cadena MD PCP - General 05/20/18 documented as of this encounter
--- OUTSIDE RECORDS SUMMARY | 2021-11-14 11:58 | XMS_ITS | Clinical Summary ---
:1995 Author Organization [facility] Address [address] [place] [address] Care Team Providers Name Role Phone Hi Cadena MD Primary Care Provider Allergies Active Allergy Reactions Severity Noted Date Comments Adhesive 01/31/2018 rash Ciprofloxacin 01/31/2018 Dizziness and vomiting Medications Medication Sig Dispensed Refills Start Date End Date Status acetaminophen (TYLENOL) Take 2 tablets by 0 09/08/19 19 Active 325 mg tablet mouth every 4 hours as needed for Pain. ibuprofen (IBU-200) 200 Take 2 tablets by 0 09/08/19 19 Active mg tablet mouth every 4 hours as needed for Pain. hydrOXYzine (ATARAX) 25 Take 1 Tab by 30 Tab 2 11/13/2018 Active mg tablet mouth 3 times daily as needed for Anxiety. Additional Information Patient not taking. Reported on 03/28/2021 escitalopram oxalate (LEXAPRO) Take 1 Tab by mouth 90 Tab 0 02/27/2020 Active 20 mg tablet daily. NEEDS APPT Additional Information Patient not taking. Reported on 03/02/2021 etonogestreL (NEXPLANON) 68 mg Insert 68 mg subdermally 0 Active subdermal implant continuous IUD. Active Problems Patient Care Coordination Note Formatting of this note might be differe nt from the original. 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 interested in seeing Michelle in 2nd or 3rd tri or PRN Supervision of normal 09/20/19 Overview: CNM CHOB Partner's name: [Carlos ] BMI 39 Depression/anxiety Dating by u/s done 02/01/18 at 8w3d - MANUEL 09/10/18 Review next visit Pre- weight [ 230 ] BMI 39 Aneuploidy screening: [ declines ] AFP [ declines ] CF [ declines] SMA [ declines ] Blood type [ A+ ] Pap [collected 01/31/18 ] Additional labs [ early GTT 86] OGTT/CBC: [GTT 76 h/h 11.7/35.3 ] GBS: [POS] (Allergies?) Hx HSV [ denies] Flu vaccine: [ 01/31/18 ] Tdap (after 28 wks): [06/20/18 ] Anatomy scan: 04/23/18 [ normal anatomy, female] 05/23/18 female posterior placenta CHOB U/S at 24w2d MAGGY 8.8 Growth US if indicated: BMI 37 28 wks [7 6%, maggy 11, vtx ] 32 weeks cephalic, MAGGY 12, EFW 80%tile / 2382g 36 weeks rubén breech, EFW 2751g / 50%t ile, MAGGY 18.6 AP testing if indicated [ ] VPMS Query [ ] Informed consent for opio ids signed [08/15/18 ] Contraception plans/Tubal [nexplanon ] wishes [NCB, interested in waterbi rth ] consent [ ] Circ if boy [girl ] Pedi [[facility] family practice] Encounters Date Type Specialty Care Team Description 10/10/2021 Lab Requisition Clinical Laboratory Florence Wang, Encounter for other JOB DEVELOPER general examina tion 10/07/2021 Lab Requisition Clinical Laboratory Outr Resulting Lab, Provider from Last 3 Months Immunizations Name Administration Dates Next Due Covid-19 mRNA Vaccine (PFIZER COVID-19) 08/28/2020, 08/01/19 21 PF 0.3 ml IM (12 yrs+) HPV Quadrivalent Recombinant Vaccine 01/14/2008, 04/19/2007, 02/15/2007 Historical Hepatitis B Vaccine, 1995, 1995, 07/1995 Unspecified Influenza Vaccine Quad (AFLURIA) PF 0.5 01/11/2019 ml IM (3 yrs+) Influenza Vaccine Quad PF 0.5 ml IM (6 01/31/2018 mos+) MMR Vaccine SQ 12/10/2000, 01/28/1997 Pneumococcal Polysaccharide (PPSV23) 06/30/2019 Vaccine (PNEUMOVAX-23) =>2YO SQ/IM Tdap Vaccine =>7YO IM 06/20/2018 Varicella (Chickenpox) vaccine (VARIVAX) 02/15/2007, 005 SQ Surgical History Surgery Date Site/Laterality Comments TONSILLECTOMY CHOLECYSTECTOMY WISDOM TOOTH EXTRACTION Medical History Medical History Date Comments Anxiety and depression was formerly on eds, stopped july 2017, cannot remMadeiraMadeira names, will find out. 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 interested in seeing Michelle in 2nd or 3rd tri or PRN Family History Medical History Relation Name Comments No Known Father *Other(comment) Maternal Grandfather B cell lymp hocytosis Diabetes Maternal Grandfather Diabetes Maternal Grandmother *Other(comment) Mother monoclonal b tiff l lymhocytosis High Blood Pressure Mother Thyroid Disease Mother pt unsure what t ype, mother had had partial thyr oidectomy No Known Paternal Grandfather No Known Paternal Grandmother Congenital heart defects Sister pt unsu re what type, will find out Relation Name Status Comments Father Maternal Grandfather Maternal Grandmother Alive Mother Alive Paternal Grandfather Alive Paternal Grandmother Sister Social History Tobacco Use Types Packs/Day Years Used Date Current Some Day Smoker Cigarettes Smokeless Tobacco: Never Used Tobacco Cessation: Ready to Quit: Yes; Emory bear Given: Yes Comments: quit with , smokes 5- 10 [...] Assigned at Date Recorded Not on file Obstetrics History Grav Para Term Pre Abrt (TAB) (SAB) (Ect) Mult Lvng Comments 1 1 1 0 1 Date Outcome GA Total Labor/2nd/3rd Weight Sex Delivery Anes PTL Ana A 1 A5 Name Clin Labor 09/05 Term 39w 2h 07m 2h 02m/0h 05m 3356 g F Thelma 8 9 MACDO /2018 2d (7 lb ng UGALL , 6.4 oz) ,NBDE W yudy alfaro, CN Delivery Location: [facility] [place] ([address]) Last Filed Vital Signs Vital Sign Reading Time Taken Comments Blood Pressure 110/64 03/28/2021 0939 EST Pulse 72 03/02/2021 1001 EDT Temperature 36.5 ??C (97.7 ??F) 10/25/2019 1208 EDT Respiratory Rate 20 03/28/2021 0939 EST Oxygen Saturation 99% 10/25/2019 1208 EDT Inhaled Oxygen Concentration - - Weight 119.7 kg (264 lb) 03/28/2021 0939 EST Height 182.9 cm (6') 03/28/2021 0939 EST Body Mass Index 35.8 03/28/2021 0939 EST Plan of Treatment Health Maintenance Due Date Last Done Comments Hepatitis C Screen 1995 Advance Directive 01/04/2014 Behavioral Health Screen 06/30/2020 06/30/2019, 07/08/2018 Pneumococcal Immunization (2 - PCV) 06/30/2020 06/30/2019 Social Determinants Of Health (SDOH) 06/30/2020 06/30/2019 COVID-19 Vaccine (3 - Booster for 01/28/2021 08/28/2020, Pfizer series) Preventive Care Visit 06/30/2021 06/30/2019 Influenza Immunization (Adult) 02/04/2022 01/11/2019, 01/31 (Season Ended) Cervical Cancer Screening 10/07/2024 10/07/2021, 10/07/2021 , 01/31/2018 Tetanus (Adult) Immunization 06/20/2028 06/20/2018 HPV Vaccines Completed 01/14/2008, 04/19/2007, 02/15/2007 HIV Screening Completed 01/31/2018 Pertussis (Adult) Immunization Completed 06/20/2018 Procedures Procedure Name Priority Date/Time Associated Diagnosis Comme nts PAP TEST Today 10/07/2021 10:45 Encounter for other Resu lts for this EDT general examination procedur e are in the results section. CHLAMYDIA/N. Routine 10/07/2021 10:45 Results for this GONORRHOEAE EDT procedure are i n AMPLIFIED RNA the results section. from Last 3 Months Results PAP TEST (10/07/2021 10:45 EDT) Specimens A. Cervix and/or [facility] MEDICAL Endocervix , ThinPrep CENTER Imaging System with LABORATORY Manual Evaluation SERVICES Specimen Adequacy Satisfactory for [facility] MEDICAL Evaluation - CENTER transformation zone LABORATORY component present SERVICES General Epithelial Cell [facility] MEDICAL Categorization Abnormality CENTER LABORATORY SERVICES Descriptive Squamous Cell Abnormality - Low grade squamous intraepithelial lesion (LSIL). [facility] MEDICAL Diagnosis Trichomonas vaginalis present. CENTER LABORATORY SERVICES Educational Comments [facility] recommends following A SCCP's 2012 Updated Consensus Guidelines for the Management of Abnormal Cervical Cancer Screening Tests and Cancer Precursors (JLGTD, 2013; 17(5):S1-S27). Consensus guidelines are available online at www.asccp.org. [facility] LABORATORY SERVICES Attestation By the signature below, the attending physician certifies that they have personally conducted a gross and/or microscopic [facility] Electronically examination of the described specimens and rendered or confirmed the above diagnosis. CENTER signed by LABORATORY Florinda Stewart MD on 022 at 1038 Clinical History SEE BELOW [facility] LABORATORY SERVICES Performing Lab [facility] HOSPITAL LAB [facility] LABORATORY SERVICES Scanned Images [facility] LABORATORY SERVICES Specimen Pap Test - Cervix and/or Endocervix Performing Organization Address City/State/ZIP Code Phon e Number [facility] LABORATORY [address] [place] [address] SERVICES (ABNORMAL) CHLAMYDIA/N. GONORRHOEAE AMPLIFIED RNA (10/07/2021 10:45 EDT) Pathologist Sig nature Gonococcus Result Negative Negative [facility] LABORATORY SERVICES Chlamydia Result Positive (A) Negative [facility] LABORATORY SERVICES Specimen Swab - Entire endocervix (body structure ) Performing Organization Address City/State/ZIP Code Phon e Number [facility] LABORATORY [address] [place] [address] SERVICES from Last 3 Months Insurance Payer Benefit Plan Subscriber ID Effective Phone Address Typ e / Group Dates MEDICAID ACO MEDICAID ACO [id number] 2019-Pres [phone] [address] [place] [address] [facility] [id number] Yovana,Desire Personal/Famil Self 1995 [address]) [place] [address] Yovana,Desire Personal/Famil Self 1995 [address] (Home) [place] [address] Advance Directives For more information, please contact: [phone] Latest Code Status on File Code Status Date Activated Date Inactivated Comments Full Code 09/06/2018 3:43 09/07/2018 14:37 Reason for decision includes: Full code consistent with over all plan of care Who participated in the discussion? Not Discussed Full Code 09/06/2018 3:41 09/06/2018 3:43 Reason for decision includes: Full code consistent with over all plan of care Who participated in the discussion? Not Discussed Full Code 09/04/2018 21:24 09/06/2018 3:41 Reason for decision includes: Full code consistent with over all plan of care Who participated in the discussion? Not Discussed Full Code 09/04/2018 21:22 09/04/2018 21:24 Reason for decision includes: Full code consistent with over all plan of care Who participated in the discussion? Not Discussed Full Code 09/04/2018 8:40 09/04/2018 21:22 Reason for decision includes: Full code consistent with over all plan of care Who participated in the discussion? Not Discussed Care Teams Stone Dresser Relationship Specialty Start Date End Date Hi Cadena MD PCP - General 05/20/18
--- OUTSIDE RECORDS SUMMARY | 2021-11-14 11:58 | XMS_ITS | Encounter Summary ---
:1995 Author Organization [facility] Address [address] [place] [address] Care Team Providers Name Role Phone Hi Cadena MD Primary Care Provider Encounter Details Date Type Department Care Team Description 10/07/2021 Lab Requisition [facility] Outr Resulting Lab, Pathology & Laboratory Provider [facility] [address] [place] [address] Social History Tobacco Use Types Packs/Day Years [...] encounter Procedures Procedure Name Priority Date/Time Associated Comments Diagnosis CHLAMYDIA/N. Routine 10/07/2021 10:45 Results for this GONORRHOEAE AMPLIFIED EDT proced ure are in RNA the results section. documented in this encounter Results (ABNORMAL) CHLAMYDIA/N. GONORRHOEAE AMPLIFIED RNA (10/07/2021 10:45 EDT) Pathologist Sig nature Gonococcus Result Negative Negative [facility] LABORATORY SERVICES Chlamydia Result Positive (A) Negative [facility] LABORATORY SERVICES Specimen Swab - Entire endocervix (body structure ) Performing Organization Address City/State/ZIP Code Phon e Number [facility] [address] [place] [address] SERVICES documented in this encounter Visit Diagnoses Not on filedocumented in this encounter Care Teams Chief Knowledge Officer Relationship Specialty Start Date End Date Hi Cadena MD PCP - General 05/20/18 documented as of this encounter
--- OUTSIDE RECORDS SUMMARY | 2021-11-14 11:59 | XMS_ITS | Encounter Summary ---
:1995 Author Organization Health system Address [address] [place] [address] Care Team Providers Name Role Phone Hi Cadena MD Primary Care Provider Encounter Details Date Type Department Care Team Description 11/13/[address] [facility] - [facility] Rajan Christensen MD Lab - Main [place] [address] [facility] [address] [place] [address] [place] [address] [phone] Social History Tobacco Use Types Packs/Day Years Used Date Never Assessed Alcohol Habits Answer Date Recorded How often do you have a drink containing alcohol? Never 11/11/2018 How many drinks containing alcohol do you have on a typical Not asked day when you are drinking? How often do you have six or more drinks on one occasion? No t asked Comment: Not asked Food Insecurity Answer Date Recorded Within the [...] been in contact with No / Unsure 10/25/2019 12:09 EDT someone who was confirmed or suspected to [...] Procedure Name Priority Date/Time Associated Comments Diagnosis DRUGS OF ABUSE SCREEN, Routine 11/13/2019 23:20 R esults for this URINE - [facility] EDT procedure are i n the results section. ETHYL ALCOHOL - [facility] Routine 11/13/2019 23:13 Res ults for this EDT procedure are i n the results section. COMPLETE BLOOD COUNT Routine 11/13/2019 23:13 Res ults for this WITH DIFFERENTIAL EDT procedure are in (AUTO) the results section. THYROID CASCADE Routine 11/13/2019 23:13 Results for this EDT procedure are i n the results section. MAGNESIUM Routine 11/13/2019 23:13 Results for this EDT procedure are i n the results section. COMPREHENSIVE Routine 11/13/2019 23:13 Results fo r this METABOLIC PANEL (CMP) EDT proced ure are in the results section. documented in this encounter Results (ABNORMAL) DRUGS OF ABUSE SCREEN, URINE - [facility] (11/13/2019 23:20 EDT) AMPHETAMINES POS (A) NEG [facility] BARBITURATES,UR - NEG NEG [facility] BENZODIAZEPINES NEG NEG [facility] COCAINE,URINE - [facility] NEG [facility] MAMP NEG NEG [place] (METHAMPHETAMINES - [facility] CENTER LAB MARIJUANA,URINE - POS (A) NEG [facility] MTD (METHADONE) - NEG NEG [facility] OPIATES,URINE - [facility] NEG NEG [facility] OXY (OXYCODONE) - NEG NEG [facility] PCP (PHENCYCLIDINE) NEG NEG [facility] PROPOXYPHENE (PPX) - NEG NEG [facility] TRICYCLIC NEG NEG [facility] ANTIDEPRESSANTS - Comment: [facility] Drug Class ?Cutoff Concent ration CENTER LAB Amphetamines (AMP) ?500 ng /ml Barbiturates (BAR) ?200 ng /ml Benzodiazepines (BZO) ? 150 ng/m l Cocaine (IAN) ? 150 ng/ml Methamphetamine (mAMP) ?500 ng/m l Methadone (MTD) ? 200 n g/ml Opiates (OPI) ? 100 ng/ml Oxycodone (OXY) ? 100 n g/ml Phencyclidine (PCP) ?25 ng /ml Tetrahydrocannabinol (THC) ? 50 ng/ml Propoxyphene (PPX) ?300 ng /ml Tricyclic antidepressants (TCA) ? 300 ng/ml This is a screening assay only, intended for use in cl inical monitoring or management of patients. False positive o r false negative results can occur. If confirmation test ing is needed, please call the lab. Specimens are retained in the laboratory for 7 days. Specimen Performing Organization Address City/State/ZIP Code Phon e Number [facility] [address] [place] [address] THYROID CASCADE (11/13/2019 23:13 EDT) Pathologist Sig nature TSH 2.16 0.46 - 4.68 uIU/mL [facility] Specimen Performing Organization Address City/[facility]/ZIP Code Phon e Number [facility] [address] [place] [address] MAGNESIUM (11/13/2019 23:13 EDT) Pathologist Sig nature Magnesium 1.90 1.7 - 2.8 mg/dL [facility] Specimen Performing Organization Address City/[facility] Phon e Number [facility] [address] [place] [address] ETHYL ALCOHOL - [facility] (11/13/2019 23:13 EDT) Pathologist Sig nature ETHYL ALCOHOL - [facility] <10.0 <10 mg/dL [facility] Specimen Performing Organization Address [facility]/ZIP [facility] [place] [place] Phon e Number [facility] [address] [place] [address] (ABNORMAL) COMPREHENSIVE METABOLIC PANEL (CMP) (11/13/2019 23:13 EDT) ALBUMIN - [facility] 4.4 3.4 - 4.9 [facility] g/dL [facility] ALKALINE 63 38 - 126 U/L [facility] PHOSPHATASE - [facility] BILIRUBIN TOTAL 0.7 0.2 - 1.3 [facility] mg/dL [facility] BUN - [facility] 8 (L) 10 - 26 mg/dL [facility] CALCIUM - [facility] 9.7 8.5 - 10.5 [facility] mg/dL [facility] Chloride 103 96 - 110 [facility] mmol/L [facility] CO2 Total 24 22 - 32 mEq/L [facility] CREATININE 0.78 0.52 - 1.04 [facility] mg/dL [facility] eGFR >60 [facility] Comment: [facility] LAB Chronic renal impairment is defined as GFR <60 Multiply result by 1.210 for patients . eGFR calculated using the IDMS-traceable MDRD Study Equation. ??(effective 03/09/2014) Anion Gap 14 0 - 18 [facility] GLUCOSE - [facility] 115 (H) 70 - 100 [facility] mg/dL [facility] Potassium 4.0 3.5 - 5.0 [facility] mEq/L [facility] Sodium 141 136 - 145 [facility] mEq/L [facility] TOTAL PROTEIN - 7.6 6.2 - 8.2 [facility] gm/dL [facility] SGOT/AST - [facility] 22 14 - 36 U/L [facility] SGPT/ALT - [facility] 22 0 - 35 U/L [facility] Specimen Performing Organization Address City/State/ZIP Code Phon e Number [facility] [address] [place] [address] (ABNORMAL) COMPLETE BLOOD COUNT WITH DIFFERENTIAL (AUTO) (11/13/2019 23:13 EDT) Pathologist Sig nature Gran # 7.7 2.2 - 8.85 [facility] 10e3/uL [place] [facility] BASO # - [facility] 0.09 0.01 - 0.11 [facility] 10e/uL [place] [facility] BASO % - [facility] 1 0 - 2 % [facility] EOS # - [facility] 0.57 0.03 - 0.61 [facility] 10e3/ul [place] [facility] EOS % - [facility] 4 0 - 5 % [facility] GRAN % - [facility] 59.8 40 - 80 % [facility] HEMATOCRIT - [facility] 41.3 34.9 - 44.4 % [facility] HEMOGLOBIN - [facility] 13.8 11.6 - 15.2 [facility] g/dl [place] [facility] IG# - [facility] 0.06 0 - 0.7 10e3/uL [facility] IG% - [facility] 0.5 0 - 0.9 % [facility] LYMPH # - [facility] 3.4 (H) 1.09 - 3.3 [facility] 10e3/ul [place] [facility] LYMPH% - [facility] 26.4 20 - 40 % [facility] MEAN CORPUSCULAR HGB 30.7 26.7 - 33.3 pg [facility] ME D - [facility] CENTER LAB MEAN CORPUSCULAR HGB 33.4 32.1 - 35.9 [facility] CONC - [facility] g/dL CENTER LAB MEAN CELL VOLUME - 92.0 81 - 98 fl [facility] MONO # - [facility] 1.1 (H) 0.1 - 0.[address] LAB MONO% - [facility] 8.2 0 - 12 % [facility] PLATELET COUNT 298 141 - [address] LAB RED BLOOD COUNT - 4.49 3.86 - 5.[address] LAB RED CELL DISTRI WIDTH 12.3 <14.7 % [facility] WHITE BLOOD COUNT - 12.8 (H) 4.0 - 12.[address] LAB Specimen Performing Organization Address City/State/ZIP Code Phon e Number [facility] [address] [place] [address] documented in this encounter Visit Diagnoses Not on filedocumented in this encounter Care Teams Supervisor Bridges [employer] Buildings Relationship Specialty Start Date End Date Hi Cadena MD PCP - General 05/20/18 documented as of this encounter
--- OUTSIDE RECORDS SUMMARY | 2021-11-14 11:59 | XMS_ITS | Encounter Summary ---
:1995 Author Organization [facility] Address [address] [place] [address] Care Team Providers Name Role Phone Hi Cadena MD Primary Care Provider Reason for Visit Reason Comments Psychiatric Evaluation Pt arrives states hx of depr ession and anxiety, had a baby two months ago, and states postp artum depression, states can't handle anything w/o crying o r just wanting to disappear, got worse over last two weeks. a lso states having frequent panic attacks, last one this AM. d enies SI VSS Encounter Details Date Type Department Care Team Description 11/11/2018 Emergency [facility] Gomez PA-C [address] [facility], [address] [place] [address] Post depression Emergency Department Emergency, MD Celestino (Primary Dx) - [facility] [address] [place] [address] Social History Tobacco Use Types [...] on file documented as of this encounter Last Filed Vital Signs Vital Sign Reading Time Taken Comments Blood Pressure 120/72 11/11/2018 1000 EDT Pulse 88 11/11/2018 1000 EDT Temperature 36.4 ??C (97.5 ??F) 11/11/2018 0549 EDT Respiratory Rate 16 11/11/2018 1000 EDT Oxygen Saturation 100% 11/11/2018 1000 EDT Inhaled Oxygen Concentration - - Weight 136.1 kg (300 lb) 11/11/2018 0549 EDT Height 182.9 cm (6') 11/11/2018 0549 EDT Body Mass Index 40.69 11/11/2018 0549 EDT documented in this encounter Functional Status Functional [...] or older) documented as of this encounter Discharge Diagnoses Diagnosis O99.345 Other mental disorders complicat ing the puer[place]-O99.345[ICD-10-CM] F53.0 depressi-F53.0[ICD-10-C M] O99.335 Smoking (tobacco) complicating t he puerperium-O99.335[ICD-10-CM] F17.210 Nicotine dependence, cigarettes, uncomplicated-F17.210[ICD-10-CM] documented in this encounter Discharge Instructions InstructionsGovernAdri Craig PA - 11/11/2018 If you feel at risk of harming yourself or not being able to safely care for your child or there areother concerning symptoms please return for evaluation. documented in this encounter Medications at Time of Discharge Medication Sig Dispensed Refills Start Date End Date acetaminophen (TYLENOL) Take 2 tablets by 0 09/07 325 mg tablet mouth every 4 hours as needed for Pain. ibuprofen (IBU-200) 200 mg Take 2 tablets by 0 tablet mouth every 4 hours as needed for Pain. docusate sodium (COLACE) Take 1 capsule by 0 08/201811/13/2018 100 mg capsule mouth 2 times daily as needed for Constipation. Multivitamins with Take 1 Tab by mouth 0 03/28/2021 Minerals tablet tablet daily. vit Take by mouth. 0 11/14/19 19 calc,iron,folic ( #2 ORAL) ranitidine (ZANTAC) 150 mg Take 1 tablet by 60 tablet 1 08/20/2019 tablet mouth 2 times daily. documented as of this encounter Discharge Disposition Disposition Code Departure Means Destination Home or Self Care Walk-out Home documented in this encounter ED Notes Cleo Horta RN - 11/11/2018 0712 EDT Upon introduction with pt, pt smiled, denied having any needs and appeared pleasant Opal Cole RN - 11/11/2018 0709 EDT Report given to Cleo Munoz overnalAdri Smart PA - 11/11/2018 0636 EDT DOS: 11/11/2018 Chief Complaint Patient presents with ??? Psychiatric Evaluation Pt arrives states hx of depression and anxiety, had a baby two months ago, and states depression, states can't handle anything w/o crying or just wanting to disappear, got worse over lasttwo weeks. also states having frequent panic attacks, last one this AM. denies SI VSS HPI The patient is a 23 y.o. female who presents today with Psychiatric Evaluation (Pt arrives states hxof depression and anxiety, had a baby two months ago, and states depression, states can't handle anything w/o crying or just wanting to disappear, got worse over last two weeks. also states having frequent panic attacks, last one this AM. denies SI VSS) 23 yo Female with history of anxiety and depression and who is 2 months presents for evaluation of escalating anxiety and depression. She reports that she had previously been on medications but stopped in 2018 at some point as she felt she was doing well. She did well through most of her pre gnancy. She reports that she developed preeclampsia which was pretty difficult for her. She has beenhaving frequent panic attacks and feeling very depressed. She cries frequently, has a sensation of wanting to disappear however denies any suicidal thoughts. She has no concerns for her safety or the safety of her child. She is getting minimal sleep but she is woken up every 2 hours by her . Lives with her boyfriend who works nights. Recently spent time with family over the past week and feels that this worsened things for her. She is planning to connect with a provider at [facility] howeverfelt she could not handle waiting 2 weeks for that appointment to happen and so presents here. Review of Systems Review of Systems Constitutional: Positive for appetite change. Negative for fever. HENT: Negative for congestion and rhinorrhea. Eyes: Negative for pain. Respiratory: Negative for cough. Cardiovascular: Negative for chest pain. Gastrointestinal: Negative for abdominal pain. Genitourinary: Negative for flank pain. Musculoskeletal: Negative for back pain. Skin: Negative for wound. Allergic/Immunologic: Negative for immunocompromised state. Neurological: Negative for headaches. Psychiatric/Behavioral: Positive for dysphoric mood and sleep disturbance. Negative for confusion. The patient is nervous/anxious. The patient's past medical, family and social history was reviewed and updated as needed. Allergies Allergen Reactions ??? Adhesive rash ??? Ciprofloxacin Dizziness and vomiting Vital Signs Vitals Reassessment?: Yes Temp: 36.4 ??C (97.5 ??F) Temp src: Oral Pulse: 88 Resp: 16 SpO2: 100 % BP: 120/72 BP MAP: 85 mm Hg BP Device: BP Machine Patient Position: Sitting BP Cuff Location: Left arm O2 Device: None (Room air) Physical Exam Constitutional: She appears well-developed and well-nourished. No distress. HENT: Head: Normocephalic and atraumatic. Right Ear: External ear normal. Left Ear: External ear normal. Eyes: Conjunctivae are normal. Neck: Normal range of motion. Neck supple. Cardiovascular: Normal rate. Pulmonary/Chest: Effort normal. Musculoskeletal: Normal range of motion. Neurological: She is alert. Skin: She is not diaphoretic. No pallor. Psychiatric: Her speech is normal and behavior is normal. Judgment normal. Thought content is not paranoid. Cognition and memory are normal. She exhibits a depressed mood. She expresses no homicidal and no suicidal ideation. Nursing note and vitals reviewed. RESULTS EKG orders: None Radiology orders: None Procedures ED COURSE A medical screening exam was performed. Patient seen by first call, outpatient plan established. Given first call contact as well. She is happy with the plan. Final diagnoses: Post depression DISPOSITION: Discharged The patient's pain was managed to an adequate level weighing risk vs. benefit of further medications. Upon departure from the Emergency Department, the patient's pain was 0 on a zero to ten scale. Any further pain treatment will be at the discretion of the provider following up with the patient based on their clinical assessment. Condition at departure from the Emergency Department: Stable PCP: Hi Denny was available for supervision. 11/11/2018 12:14 No flowsheet data found. Opal Cole RN - 11/11/2018 0603 EDT Pt cooperative and calm with this typewriter ribbon winder. Pt reports that she was going to see an OB provider about depression but it has gotten too bad over the past few days. Denies SI or HI but states I just feel like I want to disappear. Reports h/o depression. Notified patient that provider will be in to seepatient. Offered blanket and water and patient denied. Denies any needs at this time. documented in this encounter Plan of Treatment Not on filedocumented as of this encounter Visit Diagnoses Diagnosis Post depression - Primary Mental disorders of mother, documented in this encounter Historical Medications This list may reflect changes made after this encounter. Medication Sig Dispensed Refills Start Date End Date Multivitamins with Minerals Take 1 Tab by 0 03/28/2021 tablet tablet mouth daily. added in this encounter Care Teams Lumber Estimator Relationship Specialty Start Date End Date Hi Cadena MD PCP - General 05/20/18 documented as of this encounter
--- OUTSIDE RECORDS SUMMARY | 2021-11-14 11:59 | XMS_ITS | Encounter Summary ---
:1995 Author Organization [facility] Address [address] [place] [address] Care Team Providers Name Role Phone Hi Cadena MD Primary Care Provider Reason for Visit Reason Onset Date Comments Medications Refill 02/10/2019 Encounter Details Date Type Department Care Team Description 02/10/2019 Refill [facility] Hi Abel MD Medications Refill [address] [phone] (Wo rk) Social History Tobacco Use Types Packs/Day Years [...] or older) documented as of this encounter Miscellaneous Notes Telephone Encounter - Cain Valles RN - 02/11/2019 0853 EDT Requested Prescriptions Refused Prescriptions Disp Refills ??? escitalopram oxalate (LEXAPRO) 10 mg tablet 90 Tab 1 Sig: Take 1 Tab by mouth daily. Refused By: CAIN VALLES Reason for Refusal: Patient has requested refill too soon elephone Encounter - Barbara Tesfaye - 02/10/2019 1803 EDT Medication(s) Requested: Escitalopram 10 mg tablet Preferred Pharmacy: [facility] Is patient out of medication?yes Last Refill Date:12.11.18 Last Visit Date with Ordering Provider: 11.13.18 Next Non-Acute Visit Date Scheduled with Care Team: 06.30.19 Barbara Tesfaye 02/10/2019 18:04 documented in this encounter Plan of Treatment Not on filedocumented as of this encounter Visit Diagnoses Diagnosis Anxiety and depression Dysthymic disorder documented in this encounter Additional Health Concerns Infection Onset Date Last Indicated Resolved Time R/O COVID-19 11/14/2019 11/14/2019 11/19/2019 22:18 EDT documented as of this encounter Care Teams Comber Tender Relationship Specialty Start Date End Date Hi Cadena MD PCP - General 05/20/18 documented as of this encounter
--- OUTSIDE RECORDS SUMMARY | 2021-11-14 11:59 | XMS_ITS | Encounter Summary ---
:1995 Author Organization [facility] Address [address] [place] [address] Care Team Providers Name Role Phone Hi Cadena MD Primary Care Provider Encounter Details Date Type Department Care Team Description 09/02/2018 Phlebotomy Only [facility], [facility] Outpatient [address] [place], [place] [id number] Social History Tobacco Use Types Packs/Day Years Used Date Former Smoker 1 5 Smokeless Tobacco: Never Used Comments: quit with Alcohol Use Standard Drinks/Week Comments No 0 [...] Status Functional Status Response Date of Assessment Because of a physical, mental, or emotional condition, No 08/20/2018 does this person have difficulty doing errands alone such as visiting a doctor's office or shopping? Cognitive Status Response Date of Assessment Because of a physical, mental, or emotional condition, No 08/20/2018 does this person have serious difficulty concentrating, remembering, or making decisions? documented as of this encounter Plan of Treatment Not on filedocumented as of this encounter Visit Diagnoses Not on filedocumented in this encounter Care Teams Oil Field Rig Builder Relationship Specialty Start Date End Date Hi Cadena MD PCP - General 05/20/18 documented as of this encounter
--- OUTSIDE RECORDS SUMMARY | 2021-11-14 11:59 | XMS_ITS | Encounter Summary ---
:1995 Author Organization [facility] Address [address] [place] [address] Care Team Providers Name Role Phone Hi Cadena MD Primary Care Provider Encounter Details Date Type Department Care Team Description 11/14/2019 Results Only [facility] Jerri Lieberman MD Psychiatric Consultation [address] [place] [address] [place], [place] [phone] (Wo rk) Social History Tobacco Use Types [...] Procedure Name Priority Date/Time Associated Comments Diagnosis COVID-19 TESTING Routine 11/14/2019 10:45 Results for this EDT procedure are i n the results section. [facility] Routine 11/14/2019 7:30 Result s for this EDT procedure are i n the results section. COMPLETE BLOOD COUNT Routine 11/14/2019 7:30 Resu lts for this WITH DIFFERENTIAL EDT procedure are in (AUTO) the results section. documented in this encounter Results COVID-19 TESTING (11/14/2019 10:45 EDT) COVID-19 rt-PCR Not Detected [facility] Result Comment: [facility] The 2019 novel coronavirus (SARS-CoV-2) target nucleic acids are not detected. Result called to [facility]AN[facility] 11/14/19 1158: Result called by [facility] Specimen Performing Organization Address City/[facility] Phon e Number [facility] [address] SCREEN [facility] (11/14/2019 7:30 EDT) Pathologist Sig lisa [facility] NEG [facility] CE NTER LAB Specimen Performing Organization Address City/[facility] Phon e Number [facility] [address] [place] [address] (ABNORMAL) COMPLETE BLOOD COUNT WITH DIFFERENTIAL (AUTO) (11/14/2019 7:30 EDT) Pathologist Sig nature Gran # 6.5 2.2 - 8.85 [facility] 10e3/uL [facility] BASO # - CV 0.10 0.01 - 0.11 [facility] 10e/uL [facility] BASO % [place] [facility] [place] 1 0 - 2 % [facility] EOS # - CV 0.65 (H) 0.03 - 0.61 [facility] 10e3/ul [facility] EOS % [place] [facility] [place] 6 (H) 0 - 5 % [facility] GRAN % [place] [facility] [place] 59.5 40 - 80 % [facility] HEMATOCRIT [place] [facility] [place] 41.9 34.9 - 44.4 % [facility] HEMOGLOBIN [place] [facility] [place] 14.1 11.6 - 15.2 [facility] g/dl [facility] IG# - [facility] [place] 0.06 0 - 0.7 10e3/uL [facility] IG% - [facility] [place] 0.6 0 - 0.9 % [facility] LYMPH # - [facility] [place] 2.5 1.09 - 3.3 [facility] 10e3/ul [facility] LYMPH% - [facility] [place] 22.9 20 - 40 % [facility] MEAN CORPUSCULAR HGB 31.3 26.7 - 33.3 pg [facility] ME D - [facility] [place] [facility] LAB MEAN CORPUSCULAR HGB 33.7 32.1 - 35.9 [facility] CONC - [facility] [place] g/dL CENTER LAB MEAN CELL VOLUME - 92.9 81 - 98 fl [facility] MONO # - [facility] [place] 1.1 (H) 0.1 - 0.8 [facility] 10e3/uL [facility] MONO% - [facility] 10.1 0 - 12 % [facility] PLATELET COUNT 300 141 - 377 [facility] 10e3/ul [facility] RED BLOOD COUNT - 4.51 3.86 - 5.04 [facility] 10e3/ul [facility] RED CELL DISTRI WIDTH 12.4 <14.7 % [facility] WHITE BLOOD COUNT - 10.9 4.0 - 12.4 [facility] 10e3/ul [facility] Specimen Performing Organization Address City/State/ZIP Code Phon e Number [facility] [address] [place] [address] documented in this encounter Visit Diagnoses Not on filedocumented in this encounter Care Teams Lot Porter Relationship Specialty Start Date End Date Hi Cadena MD PCP - General 05/20/18 documented as of this encounter
--- OUTSIDE RECORDS SUMMARY | 2021-11-14 11:59 | XMS_ITS | Encounter Summary ---
:[address] [facility] Address [address] [place] [address] Care Team Providers Name Role Phone Hi Cadena MD Primary Care Provider Reason for Visit Reason Comments Routine Visit Encounter Details Date Type Department Care Team Description 08/30/2018 Routine [facility] Grace Beltran GA: 38w3d Nurse Midwifery Program Abena cuevas NP - [place] [address] [place], [address] [place], [place] [address] [place] [address] [phone] (Wo rk) Social History Tobacco Use [...] Sign Reading Time Taken Comments Blood Pressure 150/92 08/30/2018 1111 EDT Pulse - - Temperature - - Respiratory Rate - - Oxygen Saturation - - Inhaled Oxygen Concentration - - Weight 147.9 kg (326 lb) 08/30/2018 1056 EDT Height - - Body Mass Index 45.47 08/28/2018 0733 EDT documented in this encounter Functional Status [...] making decisions? documented as of this encounter Progress Notes Devin Moore, Grace Dodson CNM - 08/30/2018 1045 EDT S: Ann Yen is here today for a visit at 38w3d. Feeling well. Denies ZEPEDA, visual changes, epigastric pain, bleeding, loss of fluid or painful contractions. Baby VERY active! Not sure what position she is in - thinks she was transverse last night. Ready to have this baby. If baby found to be breech today: not sure if she is open to a version, had been very opposed. O: Vitals: BP: (!) 150/92 Weight : (!) 147.9 kg (326 lb) Heart Rate: US, 140 Movement: Present Presentation: Unknown Initial BP 152/78 Interval WG 7#, TWG 43# Unable to elicit DTRs, neg clonus, +1 pitting edema A: 23 y.o. at 38w3d IUP BMI 39 Variable lie R/o gHTN vs PEC Anxiety/depression RH pos / GBS pos P: Pt to have ultrasound now Will go to L&D for PEC workup, Christiano MOORE notified F/u in office pending L&D workup Addendum 11:44 Ultrasound following visit: cephalic, MAGGY 8 documented in this encounter Plan of Treatment Not on filedocumented as of this encounter Visit Diagnoses Diagnosis Supervision of normal first , a ntepartum - Primary documented in this encounter Care Teams Director Dietetics Department Relationship Specialty Start Date End Date Hi Cadena MD PCP - General 05/20/18 documented as of this encounter
--- OUTSIDE RECORDS SUMMARY | 2021-11-14 11:59 | XMS_ITS | Encounter Summary ---
:1995 Author Organization [facility] Address [address] [place] [address] Care Team Providers Name Role Phone Hi Cadena MD Primary Care Provider Reason for Referral Office Procedure (Routine/Next Available) - Specialty Report Received Specialty Diagnoses / Procedures Referred By Contact Refer red To Contact Neurology Diagnoses Syncope, unspecified syncope type Hi Cadena MD Chaitanya 5 Lab Procedures EEG 3 [facility] [address] [place], [place] [id number] Referral ID Status Reason Start Date Expiration Date Visits V isits Requested Authorized [id number] Specialty 03/11/2021 1 1 Report Received Reason for Visit Reason Onset Date Comments Loss of Consciousness 02/18/2021 Blood Sugar Problem 02/18/2021 Headache 02/18/2021 Encounter Details Date Type Department Care Team Description 02/18/2021 Telephone [facility] Hi Cadena MD Loss of Consciousness; Family Medicine - [address] [place] [address] Ro ad Blood Sugar Problem; [place], [place] Headache [address] [address] [place] [address] [phone] Social History Tobacco Use Types Packs/Day Years [...] documented as of this encounter Miscellaneous Notes Addendum Note - Hi Cadena MD - 03/11/2021 1204 EDT Addended by: HI CADENA on: 03/11/2021 12:04 Modules accepted: Orders elephone Encounter - Hi Cadena MD - 03/11/2021 1203 EDT I spoke with Eugenio Sanchez and we have ordered a regular EEG. This order was put in inadvertentlyas a video EEG which was not what we had intended. elephone Encounter - Niranjan Manzo MD - 03/11/2021 1055 EDT I just reviewed an order for inpatient video-EEG monitoring for this patient with Pura Stein (Chief Tech, EEG Lab). It would be best to obtain a routine EEG for this patient before considering an expensive inpatient study. An inpatient study would be typically performed if someone has recurrent spells of uncertain etiology when an EEG and other investigations have not provided a confident diagnosis AND spells are happening at least a couple times a month. Feel free to page/call if you want to talk about this patient and please consider ordering an EEG asa first step. - Keith Telephone Encounter - Estela Dockery RN - 02/18/2021 1111 EDT Spoke with patient and relayed advice/instructions from provider. Scheduled with TR on 03/02 at 10:15am - soonest visit that fit with patient's schedule. Advised to try dietary changes in the meantime, and to call us if any further concerns or fainting spells. Patient verbalized understanding and agrees with plan. No barriers to learning identified. elephone Encounter - Estela Dockery RN - 02/18/2021 1100 EDT MB full, will try again elephone Encounter - Hi Cadena MD - 02/18/2021 1021 EDT 1. Recommend frequent small high-protein as opposed to high sugar meals to avoid low blood sugars. 2. Consider appointment to review and get some blood work if symptoms persist. elephone Encounter - Estela Dockery RN - 02/18/2021 0904 EDT Spoke with patient. Today she has a little headache, feels a little foggy and weak. No vision changes. No n/v today, but did have several episodes of emesis last night for about an hour after the incident. No changes in gait today. No tremor. Does not believe she hit her head when she fainted. Was sitting down when she fainted - just slumped over and was having shaky tremors according to coworker. Was passed out for 3-5 minutes. Prior to the episode, felt warm - apparently told coworker didn't feel well just beforehand, but didnot recall this conversation later. No CP or SOB, no palpitations, no diaphoresis. 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 Has not been dx with any blood sugar problems in the past. Does not take any diabetic medications. Several members of her family are diabetic however. Only medication she is on is the Nexplanon. This has happened several times in her life since 6th grade. This this third episode this year so episodes are getting more frequent. Advised would check in with PCP on next steps and be in touch shortly. Patient verbalized understanding and agrees with plan. No barriers to learning identified. elephone Encounter - Downs Grace - 02/18/2021 0831 EDT Reason for Call: Loss of Consciousness, Blood Sugar Problem, and Headache Summary/Symptoms: Pt states she fainted last night, at work, at 10:15 PM, though pt states she had not felt unwell, and remained in a faint for at least 3 minutes. Pt also notes that she had fainted about one month ago. Per pt, her blood sugar was 54 a month ago, and just after the second episode, last night, her BS was 49. Per pt, she was given 2 glasses of orange juice, last night, and afterwards tested at 90. Per pt, she had eaten prior to going to work. Pt states she has a headache today. Per pt, she will be available for a call today, except for 10:00 --11:00 AM this morning. Onset and Duration? First episode - 1 month ago, 2nd episode - less than 24 hours ago. Appointment Offered? No Grace Downs 02/18/2021 8:37 documented in this encounter Plan of Treatment Not on filedocumented as of this encounter Results EEG (03/23/2021 10:00 EST) N[facility]ative [facility] - 03/23/2021 10:00 E Patricia Murphy MD ? 03/23/2021 12:40 [facility] ??Name: Ann Roy Yovana Clinical Neurophysiology Laboratory ??MR N: [id number] [address] [place] [address] ? : 1995 [place], [place] ?Date: 2020 Electroencephalogram Report Referring Physician: Hi Cadena MD ? Study Number: [id number] Clinical Indication: ??Syncope. Medications: No outpatient medications have been billy ed as taking for the 03/23/21 encounter (Hospital Encounter) with Room-1, Eeg, LONG DISTANCE BILLING OPERATOR. See PRISM Technical Description: Standard EEG: An [...] Visit Diagnoses Diagnosis Syncope, unspecified syncope type - Prim bird Syncope, unspecified syncope type documented in this encounter Care Teams Ice Skating Instructor Relationship Specialty Start Date End Date Hi Cadena MD PCP - General 05/20/18 documented as of this encounter
--- OUTSIDE RECORDS SUMMARY | 2021-11-14 11:59 | XMS_ITS | Encounter Summary ---
:1995 Author Organization [facility] Address [address] [place] [address] Care Team Providers Name Role Phone Hi Cadena MD Primary Care Provider Reason for Visit Reason Comments Depression Encounter Details Date Type Department Care Team Description 12/11/2018 Office Visit [facility] Hi Cadena, Anxie ty and depression Family Medicine - (Primary Dx) [address] [phone] Social History Tobacco Use Types Packs/Day Years Used Date Current Some Day Smoker Cigarettes Smokeless Tobacco: Never Used Tobacco Cessation: Ready to Quit: Yes; C ounseling Given: Yes Comments: quit with , smokes 1- 2 [...] Sign Reading Time Taken Comments Blood Pressure 120/58 12/11/2018 1446 EDT Pulse 80 12/11/2018 1446 EDT Temperature - - Respiratory Rate - - Oxygen Saturation - - Inhaled Oxygen Concentration - - Weight 136.1 kg (300 lb) 12/11/2018 1446 EDT Height 182.9 cm (6' 0.01) 12/11/2018 1446 EDT Body Mass Index 40.68 12/11/2018 1446 EDT documented in this encounter Functional Status [...] or older) documented as of this encounter Patient Instructions Patient InstructionsJosephine Li LPN - 12/11/2018 14:45 EDT Quitting smoking Stopping smoking is the best step you can take to improve your own health and lengthen your life. Quitting smoking will lower your risk for heart attacks, lung problems, and many forms of cancer. When you stop smoking, your loved ones will breathe less smoke from the air. That will lower their risk for asthma, lung infections, heart attacks, and lung cancer. You will also save money, look and smell better, and feel good about what you've done. Many people have quit smoking. The best way to quit is to be clear on your reasons for quitting, kenny quit date, use medication, and work with a trained counselor. Tobacco Counseling in [facility] offers free counseling services to residents who are ready to cut back or quit using tobacco. Services include: phone coaching (), online tools and support for those who would like to make changes on their own (www.[employer].1Lay), as well as in-person group workshops. Free nicotine replacement therapy is available through all of these resources. To learn more about your options visit www.[employer].org or call -NOW ( ). To speak with an in-person tobacco counselor in [facility] call, [phone]. [place] Resident, please visit: [email or web address] I hope you quit smoking. I think it's the best thing you can do for your health. Please call our office if you have any questions. documented in this encounter Ordered Prescriptions Prescription Sig Dispensed Refills Start Date End Date escitalopram oxalate Take 1 Tab by mouth 90 Tab 1 201806/30/2019 (LEXAPRO) 10 mg daily. tabletIndications: Anxiety and depression documented in this encounter Progress Notes Peter Hicks - 12/11/2018 1445 EDT Subjective: Patient ID: Ann Yen is an 23 y.o. female. Chief Complaint Patient presents with ??? Depression HPI Ann is a 23 yo F following up for depression and anxiety in the setting of being a new mother, gave ~ 3 months ago. Today she feels well. Reports feeling much more stable with taking Lexapro. Atarax is very useful for managing acute stress, but she has not needed it often. Major stressor at the moment is that baby doesn't like the car. Less severe when she or her sit in the back seat to give keep baby company. Denies headache, GI upset, changes in libido. Does not feel that any changes to her management are necessary. Therapist was offered if pt is interested. Pt was ambivalent, since she is already busy with being anew parent and working nights. Patient Active Problem List Diagnosis ??? Anxiety and depression ??? BMI 39.0-39.9,adult ??? Nephrolithiasis ??? Acquired monosaccharide malabsorption Past Medical History: Diagnosis Date ??? Anxiety and depression was formerly on meds, stopped july 2017, cannot remember med names, will find out. interested in seeing Michelle in 2nd or 3rd tri or PRN ??? Hypertension ??? Kidney stones 2017 expectant mgmt, only 1 UTI in her lifetime ??? Supervision of normal Current Outpatient Medications on File Prior to Visit Medication Sig Dispense Refill ??? acetaminophen (TYLENOL) 325 mg tablet Take 2 tablets by mouth every 4 hours as needed for Pain. ??? hydrOXYzine (ATARAX) 25 mg tablet Take 1 Tab by mouth 3 times daily as needed for Anxiety. 30 Tab 2 ??? ibuprofen (IBU-200) 200 mg tablet Take 2 tablets by mouth every 4 hours as needed for Pain. ??? Multivitamins with Minerals tablet tablet Take 1 Tab by mouth daily. ??? ranitidine (ZANTAC) 150 mg tablet Take 1 tablet by mouth 2 times daily. 60 tablet 1 No current facility-administered medications on file prior to visit. Allergies Allergen Reactions ??? Adhesive rash ??? Ciprofloxacin Dizziness and vomiting Social Social History Tobacco Use ??? Smoking status: Current Some Day Smoker Types: Cigarettes ??? Smokeless tobacco: Never Used ??? Tobacco comment: quit with , smokes 1-2 a day Substance Use Topics ??? Alcohol use: No Frequency: Never Comment: quit with ??? Drug use: No Comment: past hx of mj use, not during ROS - See HPI Objective: BP 120/58 (BP Cuff Location: Right arm, Patient Position: Sitting, BP Cuff Sizes: Adult, large) Pulse 80 Ht 182.9 cm (72.01) Wt (!) 136.1 kg (300 lb) BMI 40.68 kg/m?? Physical Exam Constitutional: No distress. HENT: Head: Normocephalic and atraumatic. Eyes: Conjunctivae are normal. Cardiovascular: Normal rate and regular rhythm. Pulmonary/Chest: Effort normal. No stridor. No respiratory distress. She has no wheezes. She has no rhonchi. She has no rales. Neurological: She is alert. Psychiatric: She has a normal mood and affect. Her behavior is normal. Judgment and thought content normal. Nursing note and vitals reviewed. Assessment: Ann is a 23 yo F presenting for follow up on depression and anxiety. She is stable on current medication regimen. She is aware that support with counseling is available if needed. No changes necessary. Plan: Ann was seen today for depression. Diagnoses and all orders for this visit: Anxiety and depression - escitalopram oxalate (LEXAPRO) 10 mg tablet; Take 1 Tab by mouth daily. - Hydroxyzine as needed I was present with the medical student for the history, exam, medical decision making documented by him/her. I have personally performed my own physical exam and medical decision making. I have verified and agree with (or, as indicated, have edited) the medical student???s documentation. ATTENDING ATTESTATION: I have interviewed and examined the patient. I discussed the case in detail with the medical student. I agree with findings and plan of care as documented except for any changes in red and corrections with strikeover in blue. Hi Cadena MD 12/11/18 17:49 Family Medicine Attending Return in about 3 months (around 03/13/2019) for f/u depression 15. documented in this encounter Plan of Treatment Not on filedocumented as of this encounter Visit Diagnoses Diagnosis Anxiety and depression - Primary Dysthymic disorder documented in this encounter Discontinued Medications Medication Sig Discontinue Reason Start Date End Date escitalopram oxalate Take 1 Tab by 11/13/20182018 (LEXAPRO) 10 mg tablet mouth daily. documented as of this encounter Care Teams Payroll Lead Relationship Specialty Start Date End Date Hi Cadena MD PCP - General 05/20/18 documented as of this encounter
--- OUTSIDE RECORDS SUMMARY | 2021-11-14 11:59 | XMS_ITS | Encounter Summary ---
:1995 Author Organization [facility] Address [address] [place] [address] Care Team Providers Name Role Phone Hi Cadena MD Primary Care Provider Encounter Details Date Type Department Care Team Description 09/02/2018 Hospital Encounter [facility] - S Annel Alvarado, [id number] [place] [address] [facility] [address] [place] [address] (Wo rk) Social History Tobacco Use [...] as of this encounter Discharge Diagnoses Diagnosis O09.93 Supervision of high risk pregnanc y, unspecified, third trimester-O09.93[ICD-10-CM] documented in this encounter Medications at Time of Discharge Medication Sig Dispensed Refills Start Date End Date acetaminophen (TYLENOL) Take 2 tablets by 0 09/07 325 mg tablet mouth every 4 hours as needed for Pain. ibuprofen (IBU-200) 200 mg Take 2 tablets by 0 tablet mouth every 4 hours as needed for Pain. acetaminophen (TYLENOL) Take 650 mg by 0 09/07/2018 325 mg tablet mouth every 4 hours as needed for Pain (shoulder pain). ascorbic acid, vitamin C, Take 250 mg by 0 09/07/2018 (VITAMIN C) 250 mg tablet mouth daily. aspirin chewable 81 mg Take 81 mg by mouth 0 09/07/2018 tablet daily. docusate sodium (COLACE) Take 1 capsule by 0 05/08/201811/13/2018 100 mg capsule mouth 2 times daily as needed for Constipation. magnesium oxide (MAG-OX) Take 400 mg by 0 09/07/2018 400 mg (241.3 mg mouth daily. magnesium) tablet vit Take by mouth. 0 11/14/19 19 calc,iron,folic ( #2 ORAL) ranitidine (ZANTAC) 150 mg Take 1 tablet by 60 tablet 1 08/20/2019 tablet mouth 2 times daily. documented as of this encounter Discharge Disposition Disposition Code Departure Means Destination Home or Self Care documented in this encounter Plan of Treatment Not on filedocumented as of this encounter Visit Diagnoses Not on filedocumented in this encounter Care Teams Weave Defect Charting Clerk Relationship Specialty Start Date End Date Hi Cadena MD PCP - General 05/20/18 documented as of this encounter
--- OUTSIDE RECORDS SUMMARY | 2021-11-14 11:59 | XMS_ITS | Encounter Summary ---
:1995 Author Organization [facility] Address [address] [place] [address] Care Team Providers Name Role Phone Hi Cadena MD Primary Care Provider Reason for Visit Reason Comments Post- Care Encounter Details Date Type Department Care Team Description 09/10/2018 Office Visit [facility] Vicky Alvarado P ostpartum care and Nurse Midwifery RESTAURANT ASSISTANT MANAGER CNM examination (Primary Program - [address]) [address] [facility] [place], [address] [facility], [place] [address] [place] [address] [phone] (Wo rk) Social History Tobacco Use [...] Sign Reading Time Taken Comments Blood Pressure 146/78 09/10/2018 1402 EDT Pulse - - Temperature - - Respiratory Rate - - Oxygen Saturation - - Inhaled Oxygen Concentration - - Weight 135.2 kg (298 lb) 09/10/2018 1402 EDT Height - - Body Mass Index 41.56 09/04/2018 0828 EDT documented in this encounter Functional Status [...] documented as of this encounter Progress Notes Vicky Alvarado CNM - 09/10/2018 1400 EDT S: Ann is a 23 y.o 5 days s/p . She presents today for a BP check. She was induced [id number] for PEC, developed SF in labor requiring magnesium and IV labetalol. She was normotensive to mild range after giving . Ann is feeling well, no HAs, visual changes or RUQ pain. Her only co mplaint is soreness at her epidural site, which was a very challenging placement. Her bleeding is light, passed a kathi clot a few days ago and after that bleeding was even tie hacker, no further clots. No concerns about stitches. Voiding and having a daily BM without issues. Has decided to stop collin stfeeding, now giving exclusive formula x3 days. First night home from the hospital was extremely challenging, nipples were cracked, she was up all night trying to feed and baby didn't seem to be getting any milk, needed to supplement and decided just to stick with formula. Feeling really good about that decision, mood feels much better, feels she is actually enjoying things now. Has not had any engorgement, doesn't feel milk ever came in. Appetite is decreased, doesn't really feel hungry, trying toforce herself to eat. No nausea or vomiting, just not interested in food. O: Patient Vitals for the past 24 hrs: BP Weight 09/10/18 1402 (!) 146/78 (!) 135.2 kg (298 lb) Well appearing, no distress Back: ecchymosis surrounding epidural site, no hematoma (per patient's partner bruising has decreased since leaving the hospital) A: 23 y.o 5 days s/p , IOL for PEC w/SF PEC w/SF, magnesium PP x24hrs- asymptomatic, BP mild range P: PPD/anxiety warning signs reviews Encouraged continue to focus on rest, sleep when baby sleep Good nutrition/hydration, try small bites/snacks during the day BP check/PPV in 1 week Plans Nexplanon at 6wk visit documented in this encounter Plan of Treatment Not on filedocumented as of this encounter Visit Diagnoses Diagnosis care and examination - Primar y Routine follow-up documented in this encounter Care Teams Construction Quality Control Manager Relationship Specialty Start Date End Date Hi Cadena MD PCP - General 05/20/18 documented as of this encounter
--- OUTSIDE RECORDS SUMMARY | 2021-11-14 11:59 | XMS_ITS | Encounter Summary ---
:1995 Author Organization [facility] Address [address] [place] [address] Care Team Providers Name Role Phone Hi Cadena MD Primary Care Provider Reason for Referral (Routine) - Receiving Office to Obtain Authorization Specialty Diagnoses / Procedures Referred By Contact Refer red To Contact Elissa Thao MD [address] [place] [phone] Referral ID Status Reason Start Expiration Visits Visits Date Date Requested Authorized [id number] Receiving Office Specialty 1 1 to Obtain Services 9 Authorization Required Reason for Visit Reason Comments Hypertension Encounter Details Date Type Department Care Team Description 08/30/2018 Hospital Encounter [facility] Darrius Gordon MD [address] [place] [id number] [facility] Maya Allen MD [address] [phone] [place] [address] Social History Tobacco Use Types Packs/Day [...] Sign Reading Time Taken Comments Blood Pressure 131/72 08/30/2018 1500 EDT Pulse 83 08/30/2018 1304 EDT Temperature 35.4 ??C (95.7 ??F) 08/30/2018 1304 EDT Respiratory Rate 20 08/30/2018 1304 EDT Oxygen Saturation - - Inhaled Oxygen Concentration - - Weight - - Height - - Body Mass Index - - documented in this encounter Functional Status Functional [...] making decisions? documented as of this encounter Discharge Diagnoses Diagnosis O26.893 Other specified relate d conditions, third trimester-O26.893[ICD-10-CM] R03.0 Elevated blood-pressure reading, w ithout diagnosis of hypertension-R03.0[ICD-10-CM] Z3A.38 38 weeks gestation of -Z 3A.38[ICD-10-CM] documented in this encounter Medications at Time [...] sodium (COLACE) Take 1 capsule by 0 05/0 08/201811/13/2018 100 mg capsule mouth 2 times [...] or Self Care documented in this encounter Progress Notes Vicky Alvarado Cnm - 08/30/2018 1357 EDT L&D Triage Note C/C: high BP in clinic HPI: Ann Yen is a 23 y.o. @ 38w3d here from clinic with BP 150/92. She denies ZEPEDA, visual changes, epigastric pain, bleeding, loss of fluid or painful contractions. Feels a lot of movement,. O: BP 140/77 Pulse 83 Temp (!) 35.4 ??C (95.7 ??F) (Tympanic) Resp 20 LMP 11/20/2017 (Exact Date) FHT: 120s baseline, mod variability, present accels, absent decels; Category I tracing Tatum: no ctx SSE: deferred SVE: deferred Bedside U/S: deferred A/P: Ann Yen is a 23 y.o. @ 38w3d presenting with an increased BP in clinic. Repeat BP on L&D 140/77. Category I tracing. - CEFM - q1 hour BPs - Pre-e labs including P:C ratio - will consider induction if diagnosis declares itself Discussed with CHAITANYA Thao MD 08/30/2018 13:57 Addendum: Ann continues to feel well. No ZEPEDA, visual changes or RUQ pain. No nausea, SOB or CP. Labs reassuring Recent Labs 08/30/18 1325 WBC 11.80 HCT 35.0 HGB 11.7 PLT 278 BUN 8* CREATININE 0.47* ALT 20 AST 16 URICACID 4.9 LDH 327 FIBRINOGEN 386* URINE PROTEIN:CREATININE RATIO=0.15 (08/30/18) Patient Vitals for the past 24 hrs: BP Temp Temp src Pulse Resp 08/30/18 1500 131/72 ? 08/30/18 1357 134/74 ? 08/30/18 1304 140/77 (!) 35.4 ??C (95.7 ??F) Tympanic 83 20 Does not meet criteria for gHTN pr PEC as mild range BPs not >4 hrs apart, stayed 4 hours from initial BP and most recent BP 131/72 Will discharge to home and plan to complete a 24hr urine this weekend and BP check in 3 days. Willie ELLISON notified of need for BP check and will call patient to coordinate. Advised to call sooner with headache, visual changes, RUQ pain, increase in swelling or generally feeling unwell. Good hydration and rest encouraged. Discussed patient with . Cici Varela, TERRA - 08/30/2018 1240 EDT Pt arrived to L+D for Pre-E w/u. Pt placed on CEFM for NST. Pt denies ZEPEDA, blurry vision, epigastric pain or any significant swelling. Pt confirmed vertex by US this am. Pt denies any contractions, LOF or VB, reports +FM. [address] Thao to the bedside to discuss plan. 1330 Labs drawn and sent 1500 CHAITANYA Alvarado to the bedside to discuss plan of care. 1521 Pt d/c to home with 24 hr collection, receptive to teaching and plan of care. documented in this encounter Plan of Treatment Scheduled Referrals Name Type Priority Associated Order Schedule Diagnoses PROVIDER FOLLOW-UP Outpatient Referral Routine Or dered: INSTRUCTIONS 08/30/2018 documented as of this encounter Procedures Procedure Name Priority Date/Time Associated Comments Diagnosis URINE INFORMATION Routine 09/02/2018 7:36 Results for this EDT procedure are i n the results section. CREATININE, URINE Routine 09/02/2018 7:36 Results for this 24HR EDT procedure are i n the results section. PROTEIN, TOTAL, 24 Routine 09/02/2018 7:36 Result s for this HR, URINE EDT procedure are i n the results section. FIBRINOGEN STAT 08/30/2018 13:25 Results for this EDT procedure are i n the results section. COMPLETE BLOOD COUNT STAT 08/30/2018 13:25 Res ults for this EDT procedure are i n the results section. URIC ACID STAT 08/30/2018 13:25 Results for this EDT procedure are i n the results section. BUN STAT 08/30/2018 13:25 Results for this EDT procedure are i n the results section. ALT STAT 08/30/2018 13:25 Results for this EDT procedure are i n the results section. AST STAT 08/30/2018 13:25 Results for this EDT procedure are i n the results section. LDH STAT 08/30/2018 13:25 Results for this EDT procedure are i n the results section. CREATININE STAT 08/30/2018 13:25 Results for this EDT procedure are i n the results section. ELECTROLYTES STAT 08/30/2018 13:25 Results for this EDT procedure are i n the results section. PROTEIN/CREATININE STAT 08/30/2018 13:15 Resul ts for this RATIO, URINE EDT procedure are i n the results section. documented in this encounter Results URINE INFORMATION (09/02/2018 7:36 EDT) Pathologist Sig nature Period 24 hrs [facility] Y SERVICES Specimen Volume 2,775 mls [facility] T[facility] SERVICES Specimen Urine Performing Organization Address City/State/ZIP Code Phon e Number [facility] [address] [place] [address] SERVICES (ABNORMAL) CREATININE, URINE 24HR (09/02/2018 7:36 EDT) Pathologist Sig nature Creatinine, Urn [place] 69.2 mg/dl [facility] SERVICES Creatinine, 24H Ur 1.9 (H) 0.8 - 1.8 g/24h [facility] Calc LABORATORY SERVICES Specimen Urine (substance) - Urine Performing Organization Address City/[facility]/ZIP Code Phon e Number [facility] [address] [place] [address] SERVICES (ABNORMAL) PROTEIN, TOTAL, 24 HR, URINE (09/02/2018 7:36 EDT) Pathologist Sig nature Tot Prot,Ur Random 12 mg/dl [facility] SERVICES Tot Prot,24h Calc. 333 (H) <150 mg/24h [facility] SERVICES Specimen Urine (substance) - Urine Performing Organization Address City/[facility]/ZIP Code Phon e Number [facility] [address] [place] [address] SERVICES URIC ACID (08/30/2018 13:25 EDT) Pathologist Sig nature Uric Acid 4.9 2.2 - 7.7 mg/dl [facility] SERVICES Specimen Blood specimen (specimen) - Blood Performing Organization Address City/[facility]/ZIP Code Phon e Number [facility] [address] [place] [address] SERVICES LDH (08/30/2018 13:25 EDT) Pathologist Sig nature LDH 327 313 - 618 U/L [facility] RY SERVICES Specimen Blood specimen (specimen) - Blood Performing Organization Address City/[facility]/ZIP Code Phon e Number [facility] [address] [place] [address] SERVICES (ABNORMAL) COMPLETE BLOOD COUNT (08/30/2018 13:25 EDT) Pathologist Sig nature WBC 11.80 4.0 - 12.4 K/cmm [facility] SERVICES RBC 3.85 (L) 3.86 - 5.04 M/cmm [facility] SERVICES Hemoglobin 11.7 11.6 - 15.2 gm/dl [facility] SERVICES HCT 35.0 34.9 - 44.4 % [facility] MCV 91 81 - 98 fl [facility] SERVICES MCH 30.4 26.7 - 33.3 pg [facility] SERVICES MCHC 33.4 32.1 - 35.9 gm/dl [facility] SERVICES RDW-CV 13.2 <14.7 % [facility] SERVICES RDW-SD 43.7 <50.4 fl [facility] SERVICES PLT 278 141 - 377 K/cmm [facility] SERVICES MPV 9.5 9.5 - 12.7 fl [facility] SERVICES Specimen Blood specimen (specimen) - Blood Performing Organization Address [facility]/ZIP [facility] Phon e Number [facility] [address] [place] [address] SERVICES (ABNORMAL) FIBRINOGEN (08/30/2018 13:25 EDT) Pathologist Sig nature Fibrinogen 386 (H) 171 - 384 mg/dl [facility] SERVICES Specimen Blood specimen (specimen) - Blood Performing Organization Address [facility] Phon e Number [facility] [address] [place] [address] SERVICES ELECTROLYTES (08/30/2018 13:25 EDT) Pathologist Sig nature Sodium 136 136 - 145 mEq/L [facility] SERVICES Potassium 4.0 3.5 - 5.0 mEq/L [facility] SERVICES Chloride 106 96 - 110 mEq/L [facility] ORY SERVICES CO2 22 22 - 32 mEq/L [facility] RY SERVICES Specimen Blood specimen (specimen) - Blood Performing Organization Address [facility] Phon e Number [facility] [address] [place] [address] SERVICES (ABNORMAL) CREATININE (08/30/2018 13:25 EDT) Creatinine 0.47 (L) 0.52 - 1.04 [facility] mg/dl LABORATORY SERVICES GFR, Calculated 141 >60 [facility] Comment: ml/min/1.73m2 LABORATORY eGFR calculated using CKD-EPI equation for SERVICES non Americans. Multiply eGFR by 1.16 for Americans. Specimen Blood specimen (specimen) - Blood Performing Organization Address [facility]/ZIP Code Phon e Number [facility] [address] [place] [address] SERVICES (ABNORMAL) BUN (08/30/2018 13:25 EDT) Pathologist Sig nature BUN 8 (L) 10 - 26 mg/dl [facility] RY SERVICES Specimen Blood specimen (specimen) - Blood Performing Organization Address [facility] Phon e Number [facility] [address] [place] [address] SERVICES AST (08/30/2018 13:25 EDT) Pathologist Sig nature AST 16 15 - 46 U/L [facility] Y SERVICES Specimen Blood specimen (specimen) - Blood Performing Organization Address City/[facility]/ZIP Code Phon e Number [facility] [address] [place] [address] SERVICES ALT (08/30/2018 13:25 EDT) Pathologist Sig nature ALT 20 <53 U/L [facility] Y SERVICES Specimen Blood specimen (specimen) - Blood Performing Organization Address City/[facility]/ZIP Code Phon e Number [facility] [address] [place] [phone] SERVICES PROTEIN/CREATININE RATIO, URINE (08/30/2018 13:15 EDT) Pathologist Sig nature Tot Prot,Ur Random 12 mg/dl [facility] SERVICES Creatinine, Urn [place] 78.0 mg/dl [facility] SERVICES UPRO mg/mg Cr, Ur 0.15 <0.16 mg/mg Crea [facility] SERVICES Specimen Urine (substance) - Urine Performing Organization Address [facility]/ZIP [facility] Phon e Number [facility] [address] [place] [address] SERVICES documented in this encounter Visit Diagnoses Diagnosis Supervision of normal - Primar y Supervision of other normal documented in this encounter Orders Diet Count Last Ordered Date First Ordered Date DISCHARGE DIET 2 08/30/2018 Nursing Count Last Ordered Date First Ordered Date BATHING INSTRUCTIONS 1 08/30/2018 Transfer Count Last Ordered Date First Ordered Date NOTIFY PPS OF DISCHARGE COMPLETE 1 08/30/2018 Discharge Count Last Ordered Date First Ordered Date DISCHARGE PATIENT 1 08/30/2018 Legal Count Last Ordered Date First Ordered Date MISCELLANEOUS DISCHARGE INSTRUCTIONS 1 08/30/2018 documented in this encounter Care Teams Mortgage Accounting Clerk Relationship Specialty Start Date End Date Hi Cadena MD PCP - General 05/20/18 documented as of this encounter
--- OUTSIDE RECORDS SUMMARY | 2021-11-14 11:59 | XMS_ITS | Encounter Summary ---
:[address] [facility] Address [address] [place] [address] Care Team Providers Name Role Phone Hi Sanchez MD Primary Care Provider Reason for Referral Consult (Routine) - Specialty Report Received Specialty Diagnoses / Procedures Referred By Contact Refer red To Contact Obstetrics & Diagnoses Supervision of normal first , antepartum Anxiety and depression Jocelyne Campos [place] [facility] Gynecology INCOME TAX EXPERT CNM Obgyn [address], [facility] 4 [facility], [place] [id number] [place] [address] Phone: [phone] Referral ID Status Reason Start Expiration Visits Visits Date Date Requested Authorized [id number] Specialty Specialty 09/07/2018 1 1 Report Services Received Required Question Answer Reason for Request: PPV Scheduling Comments (optional ? 2-3 w describe specific scheduling needs if applicable): Expected Discharge Date (Inpatient Only): 09/07/2018 Reason for Visit Reason Comments Scheduled Induction pre e without severe feature s Encounter Details Date Type Department Care Team Description 09/04/2018 - [facility] Chacorta Allen MD 111 [facility], [facility] 4 [place] [address] Supervision of normal first , a ntepartum (Primary Dx); 09/07/2018 Encounter Maternity Unit Ruddy Crow MD 111 [facility], [facility] 4 [place] [address] Anxiety and depression [address] Meir Mota MD 111 [facility] 4 [place] [id number] [place] [address] Social History Tobacco Use Types [...] Sign Reading Time Taken Comments Blood Pressure 140/67 09/07/2018 08 EDT Pulse 76 09/04/2018827 EDT Temperature 37 ??C (98.6 ??F) 09/07/2018 08 EDT Respiratory Rate 16 09/07/2018 08 EDT Oxygen Saturation 98% 09/07/2018 08 EDT Inhaled Oxygen Concentration - - Weight 145.2 kg (320 lb) 09/04/2018 08 EDT Height 180.3 cm (5' 11) 09/04/2018 0828 EDT Body Mass Index 44.63 09/04/2018 0828 EDT documented in this encounter [...] as of this encounter Discharge Diagnoses Diagnosis O14.14 Severe pre-eclampsia complicating childbirth-O14.14[ICD-10-CM] Z37.0 Single live -Z37.0[ICD-10-CM] O70.0 First degree perineal laceration d uring delivery-O70.0[ICD-10-CM] Z3A.39 39 weeks gestation of -Z 3A.39[ICD-10-CM] K21.9 Gastro-esophageal reflux disease w ithout esophagitis-K21.9[ICD-10-CM] O99.824 Streptococcus B carrier state co mplicating childbirth-O99.824[ICD-10-CM] documented in this encounter Discharge Summaries Jocelyne Campos CNM - 09/05/2018 0517 EDT Department of CHAIR Maternal Discharge Summary Information for the patient's : YovanaGilbert [[id number]] Gilbert Yen Maternal Name: Ann Yen : 1995 Attending: Meir Weaver MD Admission: 09/04/2018 Discharge: 09/07/18 Reason for Admission: Admission indication: Induction Delivery Indications: Maternal Indications for delivery: Preeclampsia without severe features Preeclampsia with severe features Indication for delivery: Not applicable Principal Procedure: Spontaneous Vaginal Delivery Secondary Procedures: Hospital Course: Ann Yen is a 23 y.o. now who presented at 39w2d for pre-eclampsia without severe features. While in labor, she developed severe range blood pressures and was initiated on magnesium for seizure prophylaxis. She also required IV antihypertensives for blood pressure control (labetalol 60mg total and hydralazine 10mg total). She progressed to complete with CRB, misoprostol and pitocin and had an of a live female, 3356g and Apgars 8 and 9. Delivered OA, no nuchalcord, no meconium. Body delivered without difficulty. Cord clamped and cut after 60 seconds of delayed cord clamping. Baby handed to awaiting pediatricians for assessment. Placenta delivered spontaneously, intact with 3 vessel cord. Fundus firm with minimal bleeding. Brisk uterine bleeding noted, which improved after buccal misoprostol and hemabate. Perineum and vagina inspected - bilateral vaginal to labial lacerations noted to be bleeding briskly as well. Repaired with 3-0 vicryl suture in the usual fashion under local anesthesia and administration of fentanyl due to failed epidural. EBL 600cc. Good hemostasis noted. Patient tolerated procedure well. The patient's course was uncomplicated. She obtained good pain control, tolerated a regular diet, was ambulating and voiding independently. Her lochia was within normal limits and she initiated . The patient was subsequently discharged on PPD# 2 with instructions to follow-up for routine care at 2 and 6 weeks. Hospital Problems: Active Hospital Problems Diagnosis Date Noted ??? *Supervision of normal CHAITANYA MCKINNON Partner's name: [Carlos ] BMI 39 Depression/anxiety [...] Anatomy scan: 04/23/18 [ normal anatomy, female] 1/17/19 female posterior placenta CHOB U/S at [id number] 8.8 Growth US if indicated: BMI 37 28 wks [76%, isela 11, vtx ] 32 weeks cephalic, ISELA 12, EFW 80%tile / 2382g 36 weeks rubén breech, EFW 2751g / 50%tile, ISELA 18.6 AP testing if indicated [ ] VPMS Query [ ] Informed consent for opioids signed [08/15/18 ] Contraception plans/Tubal [nexplanon ] wishes [NCB, interested in waterbirth ] consent [ ] Circ if boy [girl ] Pedi [[facility] family practice] Allergies: Adhesive and Ciprofloxacin Medications during current : Medications Prior to Admission Medication Sig Dispense Refill Last Dose ??? acetaminophen (TYLENOL) 325 mg tablet Take 650 mg by mouth every 4 hours as needed for Pain (shoulder pain). Taking ??? ascorbic acid, vitamin C, (VITAMIN C) 250 mg tablet Take 250 mg by mouth daily. Taking ??? aspirin chewable 81 mg tablet Take 81 mg by mouth daily. Taking ??? magnesium oxide (MAG-OX) 400 mg (241.3 mg magnesium) tablet Take 400 mg by mouth daily. Taking ??? vit calc,iron,folic ( #2 ORAL) Take by mouth. Taking ??? ranitidine (ZANTAC) 150 mg tablet Take 1 tablet by mouth 2 times daily. 60 tablet 1 Taking LABOR INFORMATION Labor Onset: Induced Labor Analgesia: Epidural, Amniotic Fluid Color: Duration Rupture of Membranes: 0.00 hours 5.00 minutes DELIVERY INFORMATION Spontaneous Vaginal Delivery ; Delivery / Repair Anesthesia: Epidural, EBL: 600.00 Placenta: Method: Expressed;Controlled Cord Traction Labor and Delivery Complications and/or Procedures: None INFORMATION Date: 09/05/2018 Time: 341 Weight: 3356 g (7 lb 6.4 oz) Sex: female Apgars: 8 9 Immunizations indicated : None Clinical Issues Needing Follow-up: BP check in office ~ 1st week PP Contraception Plan: Other: Results Pending at Discharge: Test results still pending from this admission None Condition at Discharge: Stable Discharge Disposition: home Roger Trevizo MD 09/05/2018 5:17 documented in this encounter Medications at Time [...] 2 times daily as needed for Constipation. vit Take by mouth. 0 11/14/19 19 calc,iron,folic ( #2 ORAL) ranitidine (ZANTAC) 150 mg Take 1 tablet by 60 tablet 1 08/20/2019 tablet mouth 2 times daily. documented as of this encounter Ordered Prescriptions Prescription Sig Dispensed Refills Start Date End Date ibuprofen (IBU-200) 200 mg Take 2 tablets by 0 tablet mouth every 4 hours as needed for Pain. acetaminophen (TYLENOL) Take 2 tablets by 0 09/07 325 mg tablet mouth every 4 hours as needed for Pain. docusate sodium (COLACE) Take 1 capsule by 0 05/0 08/201811/13/2018 100 mg capsule mouth 2 times daily as needed for Constipation. documented in this encounter Discharge Disposition Disposition Code Departure Means Destination Home or Self Care documented in this encounter Progress Notes Jocelyne Campos CNM - 09/07/2018 1120 EDT S: Feeling ready to go home. Bleeding light red. Voiding and ambulating without difficulty. X3 BM. Pain minimal. Mood stable. independently - has cluster feeing last night. Plans Nexplanon for contraception. FOB and his family for support. O: BP 140/67 (BP Cuff Location: Right arm, Patient Position: Sitting) Pulse 76 Temp 37 ??C (98.6??F) (Temporal) Resp 16 Ht 180.3 cm (71) Wt (!) 145.2 kg (320 lb) LMP 11/20/2017 (Exact Date) SpO2 98% ? Unknown BMI 44.63 kg/m?? Breasts soft-filling, Nipples intact Fundus @ U Rubra Lochia Perineum intact LE neg A: 23 y.o. yo day 2 s/p with sulcus laceration repaired Stable with normal involution initiated Blood type A pos IOL for PreE with SF --> BP stable P: D/C home Danger signs reviewed RTO this week for BP check Plans Nexplanon Hansa Monge CNM - 09/06/2018 1116 EDT S: Feeling well. Denies ZEPEDA, vision changes, epigastric pain or RUQ pain getting better - cluster feeding last night OOB w/o dizziness. Voiding qs and + BM Bleeding has slowed down ? Going home today Feels mood is stable O: BP 119/63 (BP Cuff Location: Right arm, Patient Position: Sitting) Pulse 76 Temp 37.1 ??C (98.8 ??F) (Temporal) Resp 18 Ht 180.3 cm (71) Wt (!) 145.2 kg (320 lb) LMP 11/20/2017 (Exact Date) SpO2 99% ? Unknown BMI 44.63 kg/m?? Breasts Soft, nipples intact FF @ 1 F above umbilicus Small rubra vaginal flow Perineum - labial stitches approximated DTR +2 , +2 edema of LE A: 23 yo S/P on 5/2 PPD #1 IOL for PreE w/o SF --> developed SF during labor Magnesium for 24h pp Normotensive since delivery Hx depression/anxiety P: Scored + on suicide risk ?s feels mood is good now - has not been on medication for over 1 year. Did talk w/SWood prenatally. Was on sertraline and hydroxyzine prn for anxiety. Discussed pp emotional changes - biochemical and lack of sleep figure in. Encouraged to stay overnight R/T PreE and for the help. Spoke to Aleisha at [facility] to set up BP check for early next week - will need whether goes home today or tomorrow. Kandace Saenz RN - 09/06/2018 0947 EDT Initial Case Management/Social Work Assessment and Discharge Plan/Readmission Risk Assessment REASON FOR ADMISSION: Supervision of normal Patient understands reason for admission: Yes PATIENT CONTACT INFO VERIFIED: Yes PATIENT ADDRESS VERIFIED: Yes LIVING ARRANGEMENTS AND ACCESSIBILITY ISSUES: Living Arrangements: Spouse / significant other What in home social supports are available to the patient? Spouse / significant other, Family member(s) Is 24/7 care available? NA ADVANCED DIRECTIVES, POA &/or COLST IN PLACE: Healthcare Directive: No, patient does not have advance directive for healthcare treatment Information Provided on Healthcare Directives: No Information on Healthcare Directives Requested: No DIRECTIVES FOR FINANCES: Directive For Finances: No TRANSPORTATION: Transportation: Family(pt has an carseat.) CULTURAL, CONGREGATION and/or LANGUAGE factors affecting health care/discharge planning: Spiritual/Cultural Requests: None Any factors affecting health care/discharge planning?: No Insurance in Place: Yes Medical Insurance: Yes Type of insurance: Medicaid, Commercial insurance Medicaid Type: Community Commercial coverage: (P primary, Medicaid secondary.) Referred to patient financial services: No DISCHARGE RISK ASSESSMENT: Total # selected above: Tentative plan to address the risk of re-hospitalization for those at HIGH MODERATE RISK: RAPT TOOL: Patient expects to be discharged to: (pt to d/c to home with ) SBIRT: FUNCTIONAL STATUS: Activities patient requires assistance: None Assistive Device: None COMMUNITY RESOURCES/SUPPORTS: Primary Care Provider: Hi Sanchez PCP Verified: Yes Specialists: None Type of Home Health Services: None DME Provider: Pharmacy: [facility]/pharmacy #[id number] - [place], [place] - [address] [place] [address] Home Health: Other: WIC(pt to make PP WIC appt.) POST HOSPITAL TRANSITION PLAN: Pt to d/c to home with infant, she will f/u with OB, Pedi and WIC. Kandace Chaudhry, RN 09/06/2018 9:48 Perla Gaines DO - 09/06/2018 0650 EDT Progress Note Chief Complaint: PPD#1 s/p , PEC s/p Mg ppx Subjective: Doing well, pain well controlled. Tolerating regular diet without nausea/vomiting, ambulating and voiding independently without difficulty. Passing flatus, no BM yet. mild amount of lochia,decreasing. Breast feeding going okay, would like to meet with senior telecommunications consultant. The patient denies CP/SOB/N/V/ZEPEDA/Dizziness/F/C/LE pain. Objective: BP 126/61 (BP Cuff Location: Right arm, Patient Position: Sitting) Pulse 76 Temp 36.5??C (97.7 ??F) (Temporal) Resp 18 Ht 180.3 cm (71) Wt (!) 145.2 kg (320 lb) LMP 11/20/2017 (Exact Date) SpO2 98% ? Unknown BMI 44.63 kg/m?? Intake/Output Summary (Last 24 hours) at 09/06/2018 0650 Last data filed at 09/06/2018 0533 Gross per 24 hour Intake 6520 ml Output 4590 ml Net 1930 ml Gen: NAD, lying comfortably in bed. Resp: CTAB, no increased work of breathing. CV: RRR, no MGR Abd: soft, non-tender, fundus firm @ umbilicus Ext: WWP, nontender. Assessment/Plan: Ann Yen is a 23 y.o. PPD#1 s/p at 39w2d. S/p Mg ppx. Patient is recovering well, AVSS. -Continue routine post- care. Continue current pain regimen. Encourage ambulation, PO intake, support BF. Nothing in the vagina for 6 weeks. -Contraception: Contraception options discussed with patient, patient expressed understanding and intends to have nexplanon placed at f/u - depression: Discussed signs and symptoms, instructions to seek help; patient expressed understanding. Higher risk with h/o anxiety/depression. Has counselor she plans to see through her OB office. - consult. Has resources through [place] as well, consider HH. -Likely d/c home today or tomorrow. Perla Gaines DO 09/06/2018 6:50 Family Medicine, PGY Roger Trevizo MD - 09/06/2018 0343 EDT Magnesium Progress Note CC: s/p ; preeclampsia with severe features, s/p magnesium ppx S: Doing well, says she could run a marathon. Pain well controlled. Denies ZEPEDA, vision changes, RUQor epigastric pain. Denies CP/SOB/leg pain. Tolerating regular diet without nausea/vomiting. Voidingindependently, ambulating with assistance. Lochia minimal. O: Patient Vitals for the past 4 hrs: BP Resp SpO2 09/06/18 0302 120/59 ??? 99 % 09/06/18 0212 121/65 ??? 97 % 09/06/18 0012 118/60 16 98 % Intake/Output Summary (Last 24 hours) at 09/06/2018342 Last data filed at 09/06/2018 0332 Gross per 24 hour Intake 7375.88 ml Output 4490 ml Net 2885.88 ml UOP: 250cc/hr Gen: A&Ox3, NAD CV: RRR Resp: CTAB throughout Ext: +SCDs, non-tender, 1+ edema bilaterally, 2+ DPP Neuro: Difficult to elicit reflexes, same as prior to magnesium, no clonus Recent Labs 09/04/18 0857 09/04/18 2213 WBC 11.76 23.15* HCT 35.8 35.8 HGB 12.2 12.5 PLT 275 279 BUN 12 -- CREATININE 0.53 0.46* ALT 15 24 AST 20 18 URICACID 5.9 5.3 LDH 402 363 FIBRINOGEN 434* 417* A/P: Ann Yen is a 23 y.o. PPD#1 s/p with preeclampsia with severe features,currently stable on post- magnesium prophylaxis. AVSS, AUOP. Pre-eclampsia w/ SF: - S/p 24hrs magnesium prophylaxis - Has remained normotensive - Required total of 60mg IV labetalol and 20mg IV hydralazine during second stage - Plan to resend labs if has another severe range BP, will consider initiation of antihypertensive Anxiety/depression: - Not on medication - High risk for PPD - Discuss prior to DC, offer referral to [facility] Routine care: - Continue routine post-op/post- care. Continue current pain regimen. Encourage IS, ambulation, PO intake; support BF. - Breast feeding - Rh positive, rhogam was not given - Rubella Immune, Varicella Immune - Pre-delivery Hct 35.8, EBL 600cc. Dispo - Circumcision: female infant - Contraception: will discuss - depression: high risk, see above - Transfer to [facility]. Likely d/c home PPD2-3 Roger Trevizo MD 09/06/2018 3:43 PGY-1 Obstetrics and Gynecology Pager #[phone] oger Gresham MD - 09/06/2018 0057 EDT Magnesium Progress Note CC: PPD#0, s/p SVE; preeclampsia with severe features, currently on magnesium prophylaxis S: Reports she is feeling well and was able to get some sleep. Pain well controlled. Denies ZEPEDA, vision changes, RUQ or epigastric pain. Denies CP/SOB/leg pain. Tolerating regular diet without nausea/vomiting. Voiding independently. Ambulation with assistance. Lochia minimal. O: Patient Vitals for the past 4 hrs: BP Temp Temp src Resp SpO2 09/06/18 0012 118/60 ? 16 98 % 09/05/18 2257 122/53 ? 16 99 % 09/05/18 2205 123/57 ? 96 % 09/05/18 2102 131/54 35.9 ??C (96.6 ??F) Tympanic 16 100 % Intake/Output Summary (Last 24 hours) at 09/06/2018 0057 Last data filed at 09/06/2018 0017 Gross per 24 hour Intake 7808.38 ml Output 4650 ml Net 3158.38 ml UOP: 160cc/hr Gen: A&Ox3, NAD CV: RRR Resp: CTAB throughout Ext: +SCDs, non-tender, 1+ edema bilaterally, 2+ DPP Neuro: Difficult to elicit reflexes, same as prior to magnesium, no clonus Recent Labs 09/04/18 0857 09/04/18 2213 WBC 11.76 23.15* HCT 35.8 35.8 HGB 12.2 12.5 PLT 275 279 BUN 12 -- CREATININE 0.53 0.46* ALT 15 24 AST 20 18 URICACID 5.9 5.3 LDH 402 363 FIBRINOGEN 434* 417* A/P: Ann Yen is a 23 y.o. PPD#1 s/p with preeclampsia with severe features,currently stable on post- magnesium prophylaxis. AVSS, AUOP. Pre-eclampsia -No current signs/symptoms of magnesium toxicity. -Has remained normotensive throughout the day -Continue magnesium x 24 hours post-. -Will resend labs when clinically indicated. Anxiety/depression: - Not on medication - High risk for PPD - Discuss prior to DC, offer referral to [facility] Routine care: - Continue routine post-op/post- care. Continue current pain regimen. Encourage IS, ambulation, PO intake; support BF. - Breast feeding - Rh positive, rhogam was not given - Rubella Immune, Varicella Immune - Pre-delivery Hct 35.8, EBL 600cc. Dispo - Circumcision: female infant - Contraception: will discuss - depression: high risk, see above - Likely d/c home PPD2-3 Roger Trevizo MD 09/06/2018 0:57 PGY-1 Obstetrics and Gynecology Pager #[phone] Roger Mo MD - 09/05/20182010 EDT Magnesium Progress Note CC: PPD#0, s/p SVE; preeclampsia with severe features, currently on magnesium prophylaxis S: Reports feeling tired but overall well. Pain well controlled. Denies ZEPEDA, vision changes, RUQ or epigastric pain. Denies CP/SOB/leg pain. Tolerating regular diet without nausea/vomiting. Voiding independently. Ambulation with assistance to commode. Lochia minimal. O: Patient Vitals for the past 4 hrs: BP Resp SpO2 09/05/18 1904 116/56 16 99 % 09/05/18 1810 112/46 ? 09/05/18 1809 ??? 16 97 % 09/05/18 1702 126/56 ? 05/02/19 1700 ??? 16 ??? Intake/Output Summary (Last 24 hours) at 09/05/20182010 Last data filed at 09/05/2018 1915 Gross per 24 hour Intake 8215.38 ml Output 5275 ml Net 2940.38 ml UOP: 150cc/hr Gen: A&Ox3, NAD CV: RRR Resp: CTAB throughout Ext: +SCDs, non-tender, 1+ edema bilaterally, 2+ DPP Neuro: Difficult to elicit reflexes, same as prior to magnesium, no clonus Recent Labs 09/04/18 0857 09/04/18 2213 WBC 11.76 23.15* HCT 35.8 35.8 HGB 12.2 12.5 PLT 275 279 BUN 12 -- CREATININE 0.53 0.46* ALT 15 24 AST 20 18 URICACID 5.9 5.3 LDH 402 363 FIBRINOGEN 434* 417* A/P: Ann Yen is a 23 y.o. PPD#0 s/p with preeclampsia with severe features,currently stable on post- magnesium prophylaxis. AVSS, AUOP. Pre-eclampsia -No current signs/symptoms of magnesium toxicity. -Has remained normotensive throughout the day -Continue magnesium x 24 hours post-. -Will resend labs when clinically indicated. Anxiety/depression: - Not on medication - High risk for PPD - Discuss prior to DC, offer referral to [facility] Routine care: - Continue routine post-op/post- care. Continue current pain regimen. Encourage IS, ambulation, PO intake; support BF. - Breast feeding - Rh positive, rhogam was not given - Rubella Immune, Varicella Immune - Pre-delivery Hct 35.8, EBL 600cc. Dispo - Circumcision: female - Contraception: will discuss - depression: high risk, see above - Likely d/c home PPD2-3 Roger Trevizo MD 09/05/2018 20:18 PGY-1 Obstetrics and Gynecology Pager #[phone] Edgar Mendez RN - 09/05/2018 1931 EDT 1920 BSR rec'd from Emory Brady RN. Pt resting in bed, just back to bed after getting out of bed to void.No complaints, pt denies headache, vision changes, epigastric pain. Infant at bedside held by DINORA. 1999 MD Trevizo at bedside, visualized lochia with this RN. 0342 Mag disconnected. Pt has tolerated treatment well, relieved to be off mag. Pt continues to denyheadache, vision changes, epigastric pain. Raquel Duarte MD - 09/05/2018 4045 EDT Magnesium Progress Note CC: PPD#0, s/p SVE; preeclampsia with severe features, currently on magnesium prophylaxis S: Feeling tired, pain well controlled. Denies ZEPEDA, visual changes, RUQ or epigastric pain. Denies CP/SOB/leg pain. Tolerating clears without nausea or vomiting. +Anaya. No ambulation. Lochia minimal. O: Patient Vitals for the past 4 hrs: BP Temp Temp src Resp SpO2 09/05/18 1702 126/56 ? 09/05/18 1700 ? 16 ??? 09/05/18 1607 134/60 36.6 ??C (97.9 ??F) Tympanic 18 ??? 09/05/18 1459 131/65 ? 16 ??? 09/05/18 1410 118/61 ? 18 99 % Intake/Output Summary (Last 24 hours) at 09/05/2018 1746 Last data filed at 09/05/2018 1700 Gross per 24 hour Intake 9458.45 ml Output 4975 ml Net 4483.45 ml UOP: 1400cc/4hour Gen: A&Ox3, NAD CV: RRR Resp: CTAB throughout Ext: +SCDs, non-tender, 1+ edema bilaterally, 2+ DPP Neuro: 1+ DTR at achilles, no clonus Recent Labs 09/04/18 0857 09/04/18 2213 WBC 11.76 23.15* HCT 35.8 35.8 HGB 12.2 12.5 PLT 275 279 BUN 12 -- CREATININE 0.53 0.46* ALT 15 24 AST 20 18 URICACID 5.9 5.3 LDH 402 363 FIBRINOGEN 434* 417* A/P: Ann Yen is a 23 y.o. PPD#0 s/p with preeclampsia with severe features,currently stable on post- magnesium prophylaxis. AVSS, AUOP. Pre-eclampsia -No current signs/symptoms of magnesium toxicity. -Currently normotensive. -Continue magnesium x 24 hours post-. -Will resend labs when clinically indicated. -Routine post- care. Raquel Oneal MD 09/05/2018 17:46 Saira Jaime MD - 09/05/2018 1308 EDT Magnesium Progress Note CC: PPD#0, s/p after IOL for pre-eclampsia without severe features now with preeclampsia with severe features based on severe range blood pressures, currently on magnesium for seizure prophylaxis S: Feeling tired, pain well controlled. Denies ZEPEDA, visual changes, RUQ or epigastric pain. Denies SOB/leg pain. Tolerating regular diet without nausea or vomiting. Lochia moderate O: Patient Vitals for the past 4 hrs: BP Temp Temp src Resp SpO2 09/05/18 1205 110/60 ? 09/05/18 1200 ??? (!) 35.5 ??C (95.9 ??F) Tympanic 16 100 % 09/05/18 1102 108/67 ? 09/05/18 1101 ? 18 100 % 09/05/18 1006 125/61 ? 18 98 % Intake/Output Summary (Last 24 hours) at 09/05/2018 1308 Last data filed at 09/05/2018 1000 Gross per 24 hour Intake 9413.45 ml Output 4885 ml Net 4528.45 ml UOP: 50 cc/ hour, 125 cc / hr, 275 cc / hr, 250 cc / hr, 250 cc/ hr Gen: A&Ox3, NAD CV: RRR Resp: CTAB throughout Abdo: Soft, nondistended, appropriately TTP, fundus firm at 1 cm below umbilicus Ext: +SCDs, non-tender, 1+ edema bilaterally, 2+ DPP Neuro: 1+ DTR bilaterally Recent Labs 09/04/18 0857 09/04/18 2213 WBC 11.76 23.15* HCT 35.8 35.8 HGB 12.2 12.5 PLT 275 279 BUN 12 -- CREATININE 0.53 0.46* ALT 15 24 AST 20 18 URICACID 5.9 5.3 LDH 402 363 FIBRINOGEN 434* 417* A/P: Ann Yen is a 23 y.o. PPD#0, s/p after IOL for pre- eclampsia without severe features now with preeclampsia with severe features based on severe range blood pressures, currently on magnesium for seizure prophylaxis. Normotensive, good UOP. Pre-eclampsia w/ SF -No current signs/symptoms of magnesium toxicity. -Currently normotensive. -Continue magnesium x 24 hours post-. -Will resend labs as clinically indicated. -Routine post- care. -Rh pos. RI. . Saira Jaime MD 09/05/2018 16:04 PGY2, OBGYN Pager #[phone] Raquel Duarte MD - 09/05/2018 6083 EDT Magnesium Progress Note CC: PPD#0, s/p SVE; preeclampsia with severe features, currently on magnesium prophylaxis S: Feeling tired, pain well controlled. Denies ZEPEDA, visual changes, RUQ or epigastric pain. Denies CP/SOB/leg pain. Tolerating clears without nausea or vomiting. +Anaya. No ambulation. Lochia minimal. O: Patient Vitals for the past 4 hrs: BP Temp Temp src Resp SpO2 09/05/18 1205 110/60 ? 09/05/18 1200 ??? (!) 35.5 ??C (95.9 ??F) Tympanic 16 100 % 09/05/18 1102 108/67 ? 09/05/18 1101 ? 18 100 % 09/05/18 1006 125/61 ? 18 98 % 09/05/18 0908 115/52 ? 96 % Intake/Output Summary (Last 24 hours) at 09/05/2018 1304 Last data filed at 09/05/2018 1000 Gross per 24 hour Intake 9413.45 ml Output 4885 ml Net 4528.45 ml UOP: 50-250cc/hour Gen: A&Ox3, NAD CV: RRR Resp: CTAB throughout Ext: +SCDs, non-tender, 1+ edema bilaterally, 2+ DPP Neuro: 1+ DTR bilateral biceps and brachioradialis Recent Labs 09/04/18 0857 09/04/18 2213 WBC 11.76 23.15* HCT 35.8 35.8 HGB 12.2 12.5 PLT 275 279 BUN 12 -- CREATININE 0.53 0.46* ALT 15 24 AST 20 18 URICACID 5.9 5.3 LDH 402 363 FIBRINOGEN 434* 417* A/P: Ann Yen is a 23 y.o. PPD#0 s/p with preeclampsia with severe features,currently stable on post- magnesium prophylaxis. AVSS, AUOP. Pre-eclampsia -No current signs/symptoms of magnesium toxicity. -Currently normotensive. -Continue magnesium x 24 hours post-. -Will resend labs when clinically indicated. -Routine post- care. Raquel Oneal MD 09/05/2018 13:04 Elizabeth Sinha RN - 09/05/2018 0752 EDT 0720. Bedside report rcvd from Parminder Mendez RN and pt assumed for care. In bed. Encouraged to rest 1200. Sleeping intermittently throughout morning. Moderate discomfort in back at site of epidural placement, otherwise no voiced concerns 1440. Pt assisted to stand at side of bed. Labor bed exchanged for bed. Pt tolerating standing and moving well. Anita care done. 1705. Pt requesting to have anaya removed. 1915. Voided 300cc w/o difficulty. Small clots passed x2. Anita care done. Roger Mo MD - 09/05/2018 0300 EDT Antepartum Magnesium Progress Note - Late Documentation CC: IOL for PEC w/ SF, magnesium prophylaxis S: Patient pushing. Not getting relief from epidural. O: Patient Vitals for the past 4 hrs: BP 09/05/18 0452 (!) 146/73 09/05/18 0435 141/74 09/05/18 0417 (!) 150/60 09/05/18 0320 (!) 168/62 09/05/18 0309 (!) 178/72 09/05/18 0245 (!) 170/68 Intake/Output Summary (Last 24 hours) at 09/05/2018 0518 Last data filed at 09/05/2018 0405 Gross per 24 hour Intake 7000.07 ml Output 3750 ml Net 3250.07 ml UOP: 25cc/hr, head obstructing catheter GEN: A&Ox3, NAD CV: RRR PULM: CTAB throughout ABD: Soft, nondistended, appropriately gravid EXT: +venos, no calf tenderness, +2 edema bilaterally, 2+ DPP NEURO: Difficult to elicit DTR's due to body habitus, no clonus FHT: baseline 125, min-mod variability, neg accel, variable decels with pushing Cat 2 FHT [place]: q3min SVE: 10 / 100 / +2 Recent Labs 09/04/18 0857 09/04/18 2213 WBC 11.76 23.15* HCT 35.8 35.8 HGB 12.2 12.5 PLT 275 279 BUN 12 -- CREATININE 0.53 0.46* ALT 15 24 AST 20 18 URICACID 5.9 5.3 LDH 402 363 FIBRINOGEN 434* 417* A/P: 23 y.o. @ 39w2d presenting for IOL for PEC w/o SF now with severe blood pressure on magnesium for prophylaxis. Category 2 tracing. AVSS, good UOP -Labor: S/p CRB and misoprostol. Then on pitocin at 14:30, up to 2mU. Making cervical change after AROM at 17:30. Progressed to complete, currently pushing. -FWB: Cat [address] although reassuring in between contractions with mod variability. Improved with O2 therapy. -Pain: Non-functioning epidural. Unwilling to allow replacement due to >1 hr attempt for current epidural -PPH risk: medium -Global: Rh Positive, GBS Positive, on PCN Pre-eclampsia w/ SF: - No current signs/symptoms of magnesium toxicity - Severe range blood pressures persistently after IV labetalol 20mg then 40mg followed by IV hydralazine 10mg then 10mg. - Improved to 150/60 - Continue magnesium x 24 hours post-. Will resend labs PRN. Anxiety/depression: - Not on medication - High risk for PPD - Discuss prior to DC, offer referral to Michelle Trevizo MD 09/05/2018 5:18 Pager #[phone] Tamiko Cartagena MD - 09/05/2018 0256 EDT L&D Update Note During second state, BP noted to be persistently 180/90s. Administered IV labetalol 20 mg then 40 mgfor persistently severe range BP. Blood pressure remained severe range and hydralazine 10 mg x2 was administered. Shortly after she delivered and blood pressure returned to mild range. If persistently 150/100 range after delivery plan to initiate oral antihypertensive therapy. Dr. Garcia aware Tamiko Tuttle MD 09/05/2018 7:14 Roger Mo MD - 09/05/2018 0046 EDT Antepartum Magnesium Progress Note CC: IOL for PEC w/ SF, magnesium prophylaxis S: Patient not getting adequate relief from epidural in left groin area. Denies noticing any symptoms from magnesium therapy. Had nausea/vomiting previously but this improved with zofran. Denies ZEPEDA, vision changes, RUQ or midepigastric pain. Denies CP/SOB/leg pain. O: Patient Vitals for the past 4 hrs: BP Temp Temp src Resp SpO2 09/05/18 0022 (!) 155/94 ? 09/05/18 0012 (!) 155/87 ? 09/05/18 0005 (!) 157/78 ? 09/05/18 0000 (!) 164/86 35.9 ??C (96.6 ??F) Tympanic 20 98 % 09/04/18 2332 (!) 154/81 ? 09/04/18 2302 (!) 150/69 ? 16 98 % 09/04/18 2257 (!) 144/75 ? 09/04/18 2252 (!) 143/78 ? 09/04/18 2247 135/80 ? 09/04/18 2242 138/76 ? 09/04/18 2237 140/77 ? 09/04/18 2232 129/74 ? 09/04/18 2228 128/62 ? 09/04/18 2222 136/59 ? 09/04/18 2217 130/67 ? 09/04/18 2212 132/72 ? 09/04/18 2207 131/55 ? 09/04/18 2202 120/59 35.9 ??C (96.6 ??F) Tympanic 16 ??? 09/04/18 2157 102/58 ? 09/04/18 2152 130/56 ? 09/04/18 2145 (!) 145/67 ? 16 ??? 09/04/182 138/75 ? 09/04/187 138/77 ? 09/04/182101 (!) 147/71 ? 16 ??? Intake/Output Summary (Last 24 hours) at 09/05/2018 0046 Last data filed at 09/05/2018 0003 Gross per 24 hour Intake 6325.07 ml Output 2675 ml Net 3650.07 ml UOP: 200cc/hour GEN: A&Ox3, NAD CV: RRR PULM: CTAB throughout ABD: Soft, nondistended, appropriately gravid EXT: +venos, no calf tenderness, +2 edema bilaterally, 2+ DPP NEURO: Difficult to elicit DTR's due to body habitus, no clonus FHT: baseline 125, min-mod variability, neg accel, neg decel Cat 1-2 FHT [place]: q3min SVE: 8 / 100 / 0 Recent Labs 09/04/18 0857 09/04/18 2213 WBC 11.76 23.15* HCT 35.8 35.8 HGB 12.2 12.5 PLT 275 279 BUN 12 -- CREATININE 0.53 0.46* ALT 15 24 AST 20 18 URICACID 5.9 5.3 LDH 402 363 FIBRINOGEN 434* 417* A/P: 23 y.o. @ 39w2d presenting for IOL for PEC w/o SF now with severe blood pressure on magnesium for prophylaxis. Category 1-2 tracing. AVSS, good UOP -Labor: S/p CRB and misoprostol. Then on pitocin at 14:30, up to 2mU. Making cervical change after AROM at 17:30. Making gradual progress. Plan to recheck in 2 hours or sooner if clinically indicated -FWB: Cat 1, reassuring. Intermittently cat 2 due to minimal variability which is also consistent with magnesium therapy. CEFM -Pain: Has left groin window with epidural, minimum improvement with boluses and movement of epidural catheter. Anesthesia aware. -PPH risk: medium -Global: Rh Positive, GBS Positive, on PCN Pre-eclampsia w/ SF: - No current signs/symptoms of magnesium toxicity - Currently mild range with one severe range BP that spontaneously improved, no antihypertensives indicated at this time - Continue magnesium x 24 hours post-. Will resend labs PRN. Anxiety/depression: - Not on medication - High risk for PPD - Discuss prior to DC, offer referral to Michelle Trevizo MD 09/05/2018 0:46 Pager #[phone] Addendum: IUPC placed due to inability to measure contractions. Roger Trevizo MD 09/05/2018 1:20 Roger holloway MD - 09/04/2018 2252 EDT Antepartum Magnesium Progress Note CC: IOL for PEC w/ SF, magnesium prophylaxis S: Feeling well, denies noting symptoms from magnesium bolus. Comfortable with epidural. Denies ZEPEDA, visual changes, N/V, RUQ or epigastric pain. Denies CP/SOB/leg pain. O: Patient Vitals for the past 4 hrs: BP Temp Temp src Resp 09/04/18 2242 138/76 ? 09/04/182236 140/77 ? 09/04/182231 129/74 ? 09/04/188 128/62 ? 09/04/182221 136/59 ? 09/04/187 130/67 ? 09/04/182 132/72 ? 09/04/187 131/55 ? 09/04/182 120/59 ? 09/04/187 102/58 ? 09/04/182151 130/56 ? 09/04/18 2145 (!) 145/67 ? 16 09/04/18 2132 138/75 ? 09/04/187 138/77 ? 09/04/182101 (!) 147/71 ? 16 09/04/182045 (!) 148/77 ? 09/04/182042 135/70 ? 09/04/182041 (!) 144/106 ? 09/04/182036 (!) 148/76 ? 09/04/182030 (!) 159/78 ? 09/04/182025 (!) 157/75 ? 09/04/182020 (!) 145/76 ? 09/04/182015 (!) 154/80 ? 09/04/182013 (!) 157/62 ? 09/04/182006 (!) 148/73 ? 09/04/182001 (!) 150/81 36 ??C (96.8 ??F) Tympanic 16 09/04/181956 136/59 ? 09/04/181950 (!) 167/90 ? 09/04/181921 (!) 156/95 ? Intake/Output Summary (Last 24 hours) at 09/04/2018 2252 Last data filed at 09/04/2018 2227 Gross per 24 hour Intake 5325.07 ml Output 1950 ml Net 3375.07 ml UOP: 350cc/hour GEN: A&Ox3, NAD CV: RRR PULM: CTAB throughout ABD: Soft, nondistended, appropriately gravid EXT: +venos, no calf tenderness, +2 edema bilaterally, 2+ DPP NEURO: Difficult to elicit DTR's due to body habitus, no clonus FHT: baseline 120, mod variability, neg accel, neg decel Cat I FHT [place]: q3min SVE: 7 / 90 / 0 Recent Labs 09/04/18 0857 09/04/18 2213 WBC 11.76 23.15* HCT 35.8 35.8 HGB 12.2 12.5 PLT 275 279 BUN 12 -- CREATININE 0.53 0.46* ALT 15 24 AST 20 18 URICACID 5.9 5.3 LDH 402 363 FIBRINOGEN 434* 417* A/P: 23 y.o. @ 39w1d presenting for IOL for PEC w/o SF now with severe blood pressure on magnesium for prophylaxis. Category 1 tracing. AVSS, good UOP -Labor: S/p CRB and misoprostol. Then on pitocin at 14:30, up to 2mU. Making cervical change after AROM at 17:30. Plan to recheck in 2 hours or sooner if clinically indicated -FWB: Cat 1, reassuring. CEFM -Pain: well-controlled with epidural -PPH risk: medium -Global: Rh Positive, GBS Positive, on PCN Pre-eclampsia w/ SF: - No current signs/symptoms of magnesium toxicity - Currently normotensive, no antihypertensives needed - Continue magnesium x 24 hours post-. Will resend labs PRN. Anxiety/depression: - Not on medication - High risk for PPD - Discuss prior to DC, offer referral to Michelle Trevizo MD 09/04/2018 22:54 Pager #[phone] Carina, Grace Dodson, [facility] - 09/04/2018 2145 EDT S: Resting with epidural. Feels comfortable. Denies ZEPEDA, visual changes, epigastric pain. O: Patient Vitals for the past 24 hrs: BP Temp Temp src Pulse Resp Height Weight 09/04/182101 (!) 147/71 ? 16 ? 09/04/182045 (!) 148/77 ? 09/04/182042 135/70 ? 09/04/182041 (!) 144/106 ? 09/04/182036 (!) 148/76 ? 09/04/182030 (!) 159/78 ? 09/04/182025 (!) 157/75 ? 09/04/182020 (!) 145/76 ? 09/04/182015 (!) 154/80 ? 09/04/182013 (!) 157/62 ? 09/04/182006 (!) 148/73 ? 09/04/182001 (!) 150/81 36 ??C (96.8 ??F) Tympanic ??? 16 ? 09/04/181956 136/59 ? 09/04/181950 (!) 167/90 ? Gen: NAD FHR: baseline 120bpm, mod variability, +accels, no decels, Cat 1 Tracing TOCO: q2-3 mins SVE: deferred Intake/Output Summary (Last 24 hours) at 09/04/2018 2146 Last data filed at 09/04/2018 2040 Gross per 24 hour Intake 5142.57 ml Output 1250 ml Net 3892.57 ml Last I&O 200cc concentrated urine per RN A: 23yo at 39w1d Cat 1 FHR Tracing IOL for PEC without SF - now with SF based on two severe range BPs, otherwise asymptomatic -s/p CRB x 7 hours, 1 dose misoprostol, Pitocin and now laboring spontaneously since 184 FHR arrhythmia Hx unstable lie BMI 39, EFW 50%tile at 36w Depression/anxiety - not on meds Hemorrhage risk: medium Epidural infusing RH pos / GBS pos with adequate prophylaxis P: Discussed with Garcia MD, formal OB consult ordered and Jose OLIVEIRA in to see pt -Advised initiation of MgSO4, discussed rationale and to continue 24hrs PP with pt - pt agrees. MD team to manage PEC with SF. CEFM Close monitoring of BP Strict I&O Can restart Pitocin if contraction pattern warrants SVE as clinically indicated Anticipate progress per primigravida Grace Paulson CNM - 09/04/20182014 EDT S: Recommended epidural for BP management. Pt agreed. Sat up for epidural for almost an hr. Just getting more comfortable on her right side. Denies ZEPEDA, visual changes, epigastric pain. O: Patient Vitals for the past 24 hrs: BP Temp Temp src Pulse Resp Height Weight 09/04/18 1922 (!) 156/95 ? 09/04/18 1550 (!) 153/85 (!) 35.1 ??C (95.2 ??F) Tympanic ??? 20 ? 09/04/18 1447 138/79 ? 09/04/18 1338 141/85 ? 09/04/18 1204 (!) 154/82 35.6 ??C (96.1 ??F) Tympanic ??? 18 ? 09/04/18 1108 (!) 157/81 ? 09/04/18 1003 133/65 ? 09/04/18 0828 130/80 35.7 ??C (96.3 ??F) Tympanic 76 18 180.3 cm (71) (!) 145.2 kg (320 lb) BP at 1750: 160/90 Gen: breathing lightly through contractions FHR: currently 120bpm, mod variability, +accels, no decels, Cat 1 Tracing During epidural placement - difficult to interpret starting at 1728, possible increasing baseline [id number] with variable and early decels vs baseline 120 with large accels, mod variability. TOCO: q2-4 mins SVE: 6/80/-1/unable to tell position by sutures, suspect OT, bloody show, leaking clear fluid Intake/Output Summary (Last 24 hours) at 09/04/20182017 Last data filed at 09/04/2018 1901 Gross per 24 hour Intake 4200 ml Output 1050 ml Net 3150 ml multiple unmeasured voids (shower, tub) A: 23yo at 39w1d Cat 2 FHR Tracing, improving IOL for PEC without SF -one SR BP at 1750, otherwise normotensive-upper mild range -CRB placed at 1000 with 25mcg misoprostol PV -transitioned to Pitocin around 1435 -CRB spontaneously expelled at 1708 -Pitocin off at 1845, now laboring spontaneously ?FHR arrhythmia Hx unstable lie, confirmed cephalic today by ultrasound BMI 39, EFW 50%tile at 36w Depression/anxiety not on meds Hemorrhage risk: medium Epidural infusing Rh pos / GBS pos with adequate prophylaxis P: Parag OLIVEIRA and Jose OLIVEIRA reviewed tracing, discussed tracing and arrhythmia with pt CEFM, close monitoring of FHR Close monitoring of BPs - discussed MgSO4 with SR BPs Pitocin to remain off, will restart if contractions space out Repeat SVE in 2 hours, sooner if clinically indicated Anticipate progress per primigravida Edgar Mendez RN - 09/04/20181926 EDT 1924 Report rec'd. Pt here for IOL for pre- e without SF. Increased bleeding noted throughout day. Pt sitting up for epidural placement, two attempts complete, will try again with ultrasound. LR infusing at 200ml/min. Pt denies vision changes, epigastric pain, headache. 19:36 Pt positioned for ultrasound guided epidural by MD Howard. 19:48 Test dose complete and negative. 19:56 Pt on right side. 20:08 CHAITANYA Paulson at bedside.grapefruit sized spot of blood noted on chux from during epidural placement. 20:10 SVE: 6/80/. 500ml LR bolus initiated per CHAITANYA Paulson 20:15 To left side 20:24 St cath 200 20:33 Discussed EFM Tracing with Alberto Person CNM and MD Tuttle. CHAITANYA Paulson aware of elevated BPs following epidural. 22:07 Per MD Trevizo, MD Tuttle, and CHAITANYA Paulson, initiation of Magneisum sulfate 4g bolus. By MD Trevizo and this RN, baseline reflexes zero. Pt continues to deny headache, vision changes, epigastric pain. 2227 Magnesium to maintenance infusion of 2g/hr. This RN has remained at bedside. Pt tolerating bolus well. 22:36 MD Trevizo at bedside for SVE: 7/90/0. Pt to right side with peanut ball. Discussed EFM tracing with MD Trevizo at this time; apparent arrythmias present, occasionally audible. MD Trevizo aware. 2305 Pt to left side, encouraged to push epidural bolus button. Feels uncomfortable in one area of lower left abdomen. 23:42 Anesthesiologist MD Lopez called, pt has pushed bolus button x3 and still not feeling any relief in lower abdomen ctx like pain. 0:13 MD Lopez at bedside to pull epidural catheter back. No relief following bolus. 0:37 Pt on right side. MD trevizo at bedside for SVE 8/100/0. 0:56 Plan discussed with MD Lopez, anesthesiologist. Options reviewed: best remaining option replacement of epidural, however originally a difficult placement. Pt decided to stick with this partially working epidural at this point as opposed to risking removing the epidural and not being able to replace it at all. 0105 Tetanic ctx palpated, mild ctx between firm peaks. pt states she does not feel any rest betweenctx. 1:[address] 1:40 Complete/+1 by CHAITANYA Paulson. 0150 pushing 2:00 MD Tuttle in room, CHAITANYA paulson ?lip of cervix coming down with pushing. MD Tuttle at bedside. 2:07 36.1Ty. 98%. 2:08 No lip. Pushing again. 2:19 Elevated BP on left forearm. 2:21 182/65 manual left arm. CHAITANYA Paulson aware, MD tuttle notified. 0228 IVP 20mg labetalol by MD trevizo 2:36 172/62 bp manually. 2:39 176/80 bp manually. MD Tuttle at bedside and aware. Plan for additional 40mg 2:42 40mg IV labetalol given by MD Tuttle. 0245 170/68 manual. MD Trevizo aware. 3:00 10mg IV Hydralazine by MD Trevizo 3:05 pitocin started per CHAITANYA Paulson, see eMAR 3:05 I/O cath 25cc concentrated urine. MD trevizo aware. 3:06 FSE replaced by MD Trevizo due to apparent cardiac arrythmia on tracing. Arrhythmia audible at times. 3:18 OK per CHAITANYA Paulson to continue titrating pitocin, see eMAR 3:23 10mg hydralazine pushed by MD Trevizo. 3:30 nicu paged 3:31 10L O2 via NRB in between ctx 0333: NICU arrival 3:36 left tilt. Arrhythmia still present on FHR tracing. Difficult to assess variability at times. 3:39 pitocin to 5. 3:41 184/60 BP 20min recheck from hydralazine 3:42 3:45 PP pit 3:48 2x pit & 200mg buccal miso 3:52 158/60 manual bp. 3:53 hemabate given right thigh per MD Tuttle. 3:59 1g TXA given IV 4:01 100mcg fentanyl IV 4:06 152/68 manual 4:07 I/O 4:08 reg strength pit per CHAITANYA Paulson 4:09 175ml urine output I&O cath. 4:17 150/60 manual BP, FF @U-3, mod/scant bleeding. Repair continuing 6:21 MD Trevizo at bedside to assess bleeding, last fundal check gush and trickle noted despite firm fundus. At this time fundus found to be firm and one small gush. Grace Lim CNM - 09/04/2018 1725 EDT L&D Progress Note CC: IUP at 39w1d S: Feeling ok. More comfortable since balloon spontaneously came out. O: BP (!) 153/85 Pulse 76 Temp (!) 35.1 ??C (95.2 ??F) (Tympanic) Resp 20 Ht 180.3 cm (71) Wt (!) 145.2 kg (320 lb) LMP 11/20/2017 (Exact Date) BMI 44.63 kg/m?? FHT: Baseline 140, moderate variability, + accels, no decels; Cat 1 FHT [place]: ctx q2-4m SVE: /-2, AROM with clear fluid, +bloody show, FSE placed A/P: 23 y.o. @ 39w1d, IOL for PreE w/o SF. Cat 1 FHT - Labor: s/p CRB, miso x1, and pitocin - FWB: Cat 1 FHT, baseline 125bpm, mod variability, +accels, no decels, Cat 1 Tracing - Pain: desires NCB - PPH risk: medium - Global: Rh pos, GBS pos Grace Paulson CNM - 09/04/2018 1419 EDT S: Feeling very crampy, like period cramps. Ate lunch. O: Blood pressure 141/85, pulse 76, temperature 35.6 ??C (96.1 ??F), temperature source Tympanic, resp.rate 18, height 180.3 cm (71), weight (!) 145.2 kg (320 lb), last menstrual period 11/20/2017. Gen: NAD FHR: baseline 125bpm, mod variability, +accels, no decels, Cat 1 Tracing - periods of poor tracing, difficult to trace 2/2 maternal habitus TOCO: q2-4 mins SVE: deferred, CRB in place A: 23yo at 39w1d Cat 1 FHR Tracing IOL for PEC without SF - normotensive to mild range, asymptomatic -CRB placed at 1000 with 25mcg misoprostol PV Hx unstable lie, confirmed cephalic today by ultrasound BMI 39, EFW 50%tile at 36w Depression/anxiety Hemorrhage risk: medium RH pos / GBS pos s/p 1 dose PCN Pitocin Bundle: Induction 39w1d EDC: 09/10/18 Indication: PEC without SF Prior Uterine Scar: no EFW: 50%tile at 36w Assessment of Pelvic Adequacy: untested Presentation: cephalic by ultrasound Macias Score: 4 Informed Consent: yes Attending Concurs: yes P: CEFM Titrate pitocin per protocol CRB due to be removed at 2200 Support PRN Anticipate progress per primigravida Addendum 1500: 10cm sac and [place] of bleeding noted on chux; has also had scant red bleeding with wiping. Pt in tub laboring, breathing through contractions. Relaxed and uterus soft between. Will continue to monitor bleeding closely. T&C x 2. Pt out of tub for more optimal CEFM. Will plan to AROM and advise internal monitors when able. Grace Paulson CNM Radha Lopez RN - 09/04/2018 1238 EDT 828 pt arrived form home for iol for preeclampsia without severe features. moniotrs placed and history obtained. 900 Dr Oneal in to discuss iol with pt. Obtained ultrasound to confirm vertex position. Will discuss with Devin aguirre about method for induction. 900 iv started and labs drawn and sent. 1000 Dr Oneal and Grace Paulson CNM in to place CRB and place miso cervically. Pt tolerated procedure, needed to have two attempts to place. Pt positioned on left side and instructed to try to stay horizontal for about an hour post miso placement. 1100 pt up to void then sat on birthing ball to facilitate better position of baby, currently transverse. Difficulty with monitoring fetus due to mom's habitus. Report off to Cici Wetzel Rn. Cici Varela RN - 09/04/2018 1120 EDT Report rec'd from Ben Lopez RN, will continue with plan of care. Pt sitting up on a birthing ball atthe edge of the bed, CEFM adjusted. Difficult to trace due to pts habitus and position. Pt recently had a CRB and dose of miso placed for IOL for Pre-E. Pt denies feeling any contractions at thistime. Pt has her SO and his mom at the bedside for support. 1230 RN remains at the bedside adjusting monitors, proving very difficult to maintain continuous monitoring. Strip reviewed with CHAITANYA Paulson. 1300 Pt sitting up in bed eating lunch, pt to call to RN when finished and will adjust 1337 Pt up into bed, monitoring adjusted. Pt appears to be seun every 2-3 minutes. 1415 CHAITANYA Paulson to the bedside to discuss plan with pt. CNM notified of spotting pt continues to haveon chux, about half dollar size amount and while up to the bathroom wiping. 1455 Pt up to the bathroom, voided and getting into tub for comfort. D. Pt desires a non medicated childbirth. She has provided the nursing staff with her verbal plan. A. Provide support according to the pt's wishes and needs during labor. Educate her regarding the available pain control methods i.e. use of the birthing ball, the tub, walking, use of the stairs, hands and knees and the dangle. Also teach relaxation techniques. Encourage the support persons involvement . Encourage PO hydration and frequent position changes. R. Pt will be satisfied with her pain management. 1522 CHAITANYA Paulson to the bedside to evaluate pt. Zofran ordered and given. Pt requested to get out of the tub per CNPhilomena to attempt better EFM, pt agreeable. Pt to the toilet, vomiting, +BM. 1540 Pt back to bed, lisa pose, CEFM reapplied. 1615 RN at the bedside adjusting EFM 1630 Anesthesia at the bedside for consult 1708 Pt up in the bathroom, the balloon feels different. Gentle traction from RN, balloon out. CHAITANYA to the bedside and notified. Small clots and continued grapefruit sized spot of red VB to chux on bed. 1712 SVE good change to 5cm 1718 AROM clear fluid, FSE applied for ease of CEFM. 1810 Pt up in the shower 1820 CHAITANYA Paulson aware of pts current BP, therapeutic epidural discussed with pt, pt agreeable. Pitocin off 1845 Pt out of the shower, assisting with gown and band changes. 500 ml LR bolus infusing per Devin AGUIRRE 18:57 Pt seated for epidural Raquel Duarte MD - 09/04/2018 0959 EDT CRB placed and filled to 80/80. Vaginal misoprostol also placed. documented in this encounter H&P Notes Devin Grace StroudCHAITANYA alfaro - 09/04/2018 0906 EDT Department of Obstetrics History & Physical Admit Date: 09/04/2018 Chief Complaint Patient presents with ??? Scheduled Induction pre e without severe features Admission indication: Induction Maternal transport/Outside delivery: No HPI: Ann Yen is a 23 y.o. at 39w1d who presents for scheduled induction for PreE w/o SF. Diagnosis based on mild rang BPs and 24 hours urine protein of 333. Today, denies any ZEPEDA, vision changes, or RUQ pain. Some BLE edema. No ctx, VB, or LOF. Good FM. c/b: -PreE w/o SF as above -anxiety and depression, not currently on medications -breech presentation, recently confirmed vtx @ 38w -obesity with BMI of 39 -GERD, on pepsid Review of Systems: as above Current Complications: Does patient have any current complications?: Yes Hypertension: Preeclampsia w/o severe features Psychiatric disease: Anxiety;Depression Testing: Genetic screening: None Maternal/ imaging: First trimester US;Routine US Medication Exposure: Significant medication exposure: None Labs: Rh +/ Antibody screen neg / Rubella imm / Varicella imm / RPR NR / Gonorrhea neg / Chlamydia neg / Hepatitis B neg/ Hepatitis C not done / HIV neg / 1hr GTT wnl / 3hr GTT not done / GBS + Ultrasound 24w2d female posterior placenta CHOB U/S, ISELA 8.8 28 wks [76%, isela 11, vtx ] 32 weeks cephalic, ISELA 12, EFW 80%tile / 2382g 36 weeks rubén breech, EFW 2751g / 50%tile, ISELA 18.6 FOB History: Father of the baby medical history: Unknown OB History Para Term AB Living 1 SAB TAB Ectopic Multiple Live Births # Outcome Date GA Lbr Efraín/2nd Weight Sex Delivery Anes PTL Lv 1 Current Previous Complications: No Data Recorded Past Medical History Past Surgical History Past Medical History: Diagnosis Date ??? Anxiety and depression was formerly on meds, stopped july 2017, cannot remember med names, will find out. interested in seeing Michelle in 2nd or 3rd tri or PRN ??? Hypertension ??? Kidney stones 2017 expectant mgmt, only 1 UTI in her lifetime ??? Supervision of normal Past Surgical History: Procedure Laterality Date ??? CHOLECYSTECTOMY ??? TONSILLECTOMY ??? WISDOM TOOTH EXTRACTION Past Gynecological History Social History No hx STIs Social History Tobacco Use ??? Smoking status: Former Smoker Packs/day: 1.00 Years: 5.00 Pack years: 5.00 ??? Smokeless tobacco: Never Used ??? Tobacco comment: quit with Substance Use Topics ??? Alcohol use: No Frequency: Never Comment: quit with reports that she does not use drugs. Medications Allergies Medications Prior to Admission Medication Sig Dispense Refill Last Dose ??? acetaminophen (TYLENOL) 325 mg tablet Take 650 mg by mouth every 4 hours as needed for Pain (shoulder pain). Taking ??? ascorbic acid, vitamin C, (VITAMIN C) 250 mg tablet Take 250 mg by mouth daily. Taking ??? aspirin chewable 81 mg tablet Take 81 mg by mouth daily. Taking ??? magnesium oxide (MAG-OX) 400 mg (241.3 mg magnesium) tablet Take 400 mg by mouth daily. Taking ??? vit calc,iron,folic ( #2 ORAL) Take by mouth. Taking ??? ranitidine (ZANTAC) 150 mg tablet Take 1 tablet by mouth 2 times daily. 60 tablet 1 Taking Allergies Allergen Reactions ??? Adhesive rash ??? Ciprofloxacin Dizziness and vomiting Objective: Weights Prepregnancy Weight: 122.5 kg (270 lb) Weight : (!) 145.2 kg (320 lb) Prepregnancy BMI (Calculated): 37.74 Weight Gain (kg) (Calculated): 22.68 kg Patient Vitals for the past 8 hrs: BP Pulse Resp Temp 09/04/18 0828 130/80 76 18 35.7 ??C (96.3 ??F) General: NAD Cardiovascular: RRR Respiratory: CTAB Abdomen: nontender, gravid, 8# by nakita'papi Extremities: warm, dry and well perfused FHT: 130 baseline. moderate variability, + accels, no decels; Cat 1 tracing. TOCO: nil SVE: deferred (06/05 in office yesterday) BSUS: cephalic and LOT Assessment/Problems/Plan: Ann Yen is a 23 y.o. at 39w1d by presenting for IOL for PreE w/o SF. #Induction -admit, place IV, CBC, T&S -will begin induction with CRB and miso #PreE w/o SF -normotensive upon admission -repeat serum labs now #FWB -cat 1 FHT -CEFM #Anxiety/depress -high risk for PPD -discuss prior to DC, offer referral to Michelle Rae #Pain -desires unmedicated labor -previous consultation with anesthesia given n/v after cholecystectomy -will consult anesthesia today given induction Patient plans to breastfeed?: Yes Breastmilk contraindication: None Planning: Prior uterine surgery: No candidate?: Not applicable Waterbirth planned: No Home : No Post-Delivery Contraception?: Undecided Global hemorrhage risk: Medium Rh + GBS +, will start PCN now Immunizations indicated : None Discussed with Grace Paulson CNM. Raquel Oneal MD 09/04/2018 9:14 Attestation statement: I discussed the patient with the resident/fellow at the time of the visit. I agree with the findings and the plan of care documented in the resident's/fellow's note. Discussed with Bentley OLIVEIRA who agrees with plan for IOL. Grace Paulson CNM 16:22 09/04/18 Ailyn Stock MD - 09/04/2018 0832 EDT Error- old note deleted documented in this encounter Consult Notes Diana Garcia MD - 09/04/2018 0758 EDTAssociated Order(s): CONSULT OB GYN OB Attending Attestation Consult request by CHAITANYA Paulson for Preeclampsia with Severe Features Attestation: I saw and examined the patient myself on 09/04/18. Patient has had 2 severe range blood pressures 40 minutes apart with regional anesthesia effectivelymeeting criteria for preeclampsia with severe features. Plan to start magnesium sulfate therapy and repeat serum laboratory evaluation. The patient is currently asymptomatic and understands the plan and has no questions at this time. Diana Garcia MD 09/04/2018 23:43 Roger Mckeon MD - 09/04/2018 1547 EDT Associated Order(s): CONSULT OB GYN OB Consult Note Reason for Consultation: New diagnosis of pre-eclampsia without severe features Ann feels well today. BP 138/79 Pulse 76 Temp 35.6 ??C (96.1 ??F) (Tympanic) Resp 18 Ht 180.3 cm (71) Wt (!) 145.2 kg (320 lb) LMP 11/20/2017 (Exact Date) BMI 44.63 kg/m?? FHT 130 mod evelyn +accels TOCO q3-4min Lab Results Component Value Date WBC 11.76 09/04/2018 HGB 12.2 09/04/2018 HCT 35.8 09/04/2018 MCV 91 09/04/2018 PLT 275 09/04/2018 Lab Results Component Value Date URICACID 5.9 09/04/2018 Lab Results Component Value Date CREATININE 0.53 09/04/2018 Lab Results Component Value Date ALT 15 09/04/2018 AST 20 09/04/2018 Assessment and Plan: Ann Yen is a 23 y.o. at 39w1d with newly diagnosed pre- eclampsia without severe features who presents for induction of labor. Discussed reasoning for induction of labor for pre-eclampsia without severe features. Discussed signs of worsening disease and briefly touched on the use of magnesium for seizure prophylaxis in the setting of severe disease. Ann and her partner had no questions at the end of our discussion. Discussed with Dr. Hagan. Roger Rich MD documented in this encounter Miscellaneous Notes Plan of Care - Clarissa Maxwell, RN - 09/07/2018 0616 EDT Problem: Daily Care Plan Goals Goal: Care Plan Documentation Outcome: Met This Shift 09/07/18 0609 Care Plan Focus Area of Focus Circulatory Status Goal This Shift Stable VS and assessment Data: Pt is s/p , day 2. Labor was induced for pre-eclampsia without severe features, progressed to severe features intrapartum. Pt received 24 hours of magnesium sulfate after delivery. Action: Q 4 hour VS as ordered, assessment completed. Response: BPs within parameters, assessment wnl. Pt denies s/s pre-eclampsia. Continue to monitor. Clarissa Maxwell RN 09/07/2018 6:09 Problem: Nutritional: Goal: Mother's verbalization of satisfaction/ comfort with will improve Outcome: Ongoing Problem: Lifecycle: : Goal: Chance of risk for complications during the period will decrease Outcome: Met This Shift lan of Care - Shantelle Ames, TERRA - 09/06/2018 1801 EDT Problem: Daily Care Plan Goals Goal: Care Plan Documentation Outcome: Met This Shift 09/06/18 1625 Care Plan Focus Area of Focus Pain/ Comfort Goal This Shift maintain pt comfort/pain control Data: Pt is day one vag del. S/p 24 hr mag c pre-eclampsia. On strict I/O's VS q 4 hours. ?? Action: Assist with , vs and assessment completed per orders ?? Response: Mom stable, will continue to monitor Problem: Pain: Goal: Pain level will decrease Outcome: Met This Shift nesthesia Post-Eval - Reba Birmingham MD, - 09/06/2018 1556 EDT Anesthesia Post op Note Ann Yen [id number] Anesthesia received: Neuraxial; No residual block Vital Signs: Temp: 37 ??C (98.6 ??F), Heart Rate: 71 BPM, Pulse: 76, BP: 130/62, Resp: 20, SpO2: 100% Vital signs Stable: Yes Consciousness: Recovered to baseline Patient's participation in evaluation:Able to participate Temperature Status: Normothermic Respiratory Status: Airway patent Supplemental O2: Room air Oxygen Saturation: Within patient's normal range Cardiovascular Status: Within patient's normal range Post-op Hydration: Adequate Nausea / Vomiting: None Pain Control: Adequate Current Pain Score: Numeric Pain Level (Scale 1-10): 1 Post-op Assessment: Tolerated procedure well Disposition: Inpatient Complications: No apparent anesthetic complications Reba Birmingham MD 09/06/2018 15:56 lan of Care - Leann Goodman RN - 09/06/2018 1331 EDT Problem: Daily Care Plan Goals Goal: Care Plan Documentation Outcome: Met This Shift 09/06/18 0750 Care Plan Focus Area of Focus GI//Elimination Goal This Shift pt will be able to void adequately D: Pt is day 1 s/p vag del. S/p 24 hr mag c pre-eclampsia dx. On strict I/O's A: Encouraged pt to measure urine. Drink adequately. R: Pt is stable. VSSA> Able to void in large amounts. Will continue to monitor. Problem: Activity: Goal: Ability to tolerate increased activity will improve Outcome: Met This Shift actation Note - Sid Malone RN IBCLC - 09/06/2018 1202 EDT Images from the original note were not included. [facility] Consult Initial Consult Consult Requested By: Order Reason for Consult: Maternal request/maternal anxiety Subjective: She's been cluster feeding and just wants to be on my breast all the time. Objective: Date of : Information for the patient's : Gilbert Yen [[id number]] 09/05/2018 Time of Delivery: Information for the patient's : Gilbert Yen [[id number]] 0342 Type of Delivery: Information for the patient's : Yovana Gilbert [[id number]] Spontaneous Vaginal Delivery [1056] Weight: 3356 g (7 lb 6.4 oz) Gestational Age: Information for the patient's : Yovana Gilbert [[id number]] 39 2/7 : Information for the patient's : Gilbert Yen [[id number]] 8 Information for the patient's : Gilbert Yen [[id number]] 9 GBS: Mother was positive. Anesthesia: Labor analgesia: Epidural, Delivery anesthesia: Epidural, Adjunctive analgesia: Incisional local, Other Anesthetic complications: Failed epidural, Additional comments: fentanyl given for repair due to failed epidural History/ Complications: PEC c SF (deleloped during labor), s/p mg Breech until 38 wks Maternal Lab: Lab Results Component Value Date HCT 35.8 09/04/2018 Infant Lab: Information for the patient's : YovanaGilbert [place] [[id number]] Lab Results Component Value Date TCB 3.2 09/06/2018 Information for the patient's : Yovana, Gilbert [[id number]] No results found for: TBIL Information for the patient's : YovanaGilbert [[id number]] No results found for: CRP History: Primip Social History: Lives in [place] with partner Carlos. Medical History: Pertinent Maternal History:Anxiety/depression; sertraline and hydroxizine, obesity, HTN Current Maternal Medications: Current Facility-Administered Medications: acetaminophen (TYLENOL) tablet 650 mg oral Q4H PRN calcium carbonate (TUMS) 200 mg calcium (500 mg) per chewable tablet tablet,chewable 2 tablet oral Q2H PRN docusate sodium (COLACE) capsule 100 mg oral BID PRN ibuprofen (MOTRIN) tablet 400 mg oral Q4H PRN lansinoh HPA lanolin topical PRN multivitamin vit-iron fumarate-FA (STUARTNATAL) 27 mg iron- 1 mg tablet 1 tablet oral DAILY Maternal Anatomy: no abnormalities noted Pertinent History: TCB 3.2 Current Infant Medications: Information for the patient's : Gilbert Yen [[id number]] Current Facility-Administered Medications: Breast Milk Identification oral PRN Hepatitis B Virus Vaccine (PF) (ENGERIX-B) IM injection-syringe 0.5 mL intramuscular ONCE sucrose 24% (TOOTSWEET) solution 0.3 mL oral PRN Infant Anatomy: Did not assess, at breast Infants Current Weight: Information for the patient's : Gilbert Yen [[id number]] 3194 g (7 lb 0.7 oz) Change from Weight: Information for the patient's : Gilbert Yen [[id number]] -5% 24 hour I/O: BF 9x Voids: 3 Stool: 1 Observation: Did not observe a feeding. Discussed how BF has been going. Ann expressed that she feels the baby is latching well, although sometimes a little narrow at first. She has been cluster feeding and mom's nipples are a little sore. Reviewed ways to improve the comfort and latch from the initial latch on. Discussed community resources. Pt has been in touch with [place] and plans to utilize them for BF support. Discussed the education topics below. Patient Education:Use of log, Prevention/treatment of engorgement, Typical pattern of night and cluster feeding, Introducing a bottle and Basics of positioning/latch [employer] website for visual reference of latch. Assessment: Primip who wishes to breastfeed her . Risk factors for delayed lactogenesis II d/t obesity, hypertension. Working to improve latch which is getting better. Need for continued support from LC, nurse, family. Plan: STS as much as possible. Offer breast with cues, at least 8-12 times per 24 hours Watch for light sleep state cues if needed, to avoid longer than 3 hours without feeding Try to observe latch at least once per shift - help with this PRN Use breast compressions to keep baby swallowing PRN Handouts given: Log, Engorgement, Milk Storage Guidelines and List of Community Resources Pump Equipment: Medela Pump N Style; gave manual pump kit Time spent: In Room: 20 minutes [id number] Out of room: 15 minutes chart review + note LC to see: daily SID MALONE RN IBCLC 09/06/2018 12:03 lan of Care - Clarissa Maxwell, RN - 09/06/2018 0609 EDT Problem: Daily Care Plan Goals Goal: Care Plan Documentation Outcome: Met This Shift 09/06/18 0607 Care Plan Focus Area of Focus Circulatory Status Goal This Shift Stable admission VS and assessment Data: Pt is s/p , delivery c/b pre-eclampsia with SF. Action: Admission VS and assessment completed upon arrival to [place] [id number]. Response: VSSA, normotensive. Assessment unremarkable. Pt denies s/s pre- eclampsia. Continue to monitor. Clarissa Maxwell, TERRA 09/06/2018 6:07 Problem: Lifecycle: : Goal: Chance of risk for complications during the period will decrease Outcome: Met This Shift &D Delivery Note - Grace Paulson CNM - 09/05/2018 0514 EDT Delivery Information Ann Yen is a 23 y.o. at 39w2d delivered by Spontaneous Vaginal Delivery . Nbdtigre Yen [id number] at Gestational Age: 39w2d delivered by Spontaneous Vaginal Delivery weighed 3356 g (7 lb 6.4 oz), 8 /9 , sent to [facility] after delivery. Maternal: Delivery Plan Outcome Planned home ? Not planned External cephalic version attempt indicated? Not indicated Delivery as waterbirth? No MARLIN after : Not applicable Delivery Indications Maternal Indications for delivery/comments: Preeclampsia without severe features Preeclampsia with severe features Indications for delivery/comments: Not applicable Intrapartum Medication Intrapartum preeclampsia: Yes Intrapartum Mg: Yes Intrapartum Mg Indication: Preeclampsia Labor Labor onset: Induced Cervical ripening/induction agent: Balloon;Misoprostol;Oxytocin Labor augmentation: AROM Augmentation indication/comments: Suboptimal contraction pattern Infection/Risk of Sepsis GBS Status: Positive GBS treatment: Started >= 4 hours prior to delivery PROM > or = 18 Hours: N/A Maternal Fever > or = 38 C: N/A Maternal Tachycardia > 100 bpm: N/A Tachycardia > 160 bpm: N/A Uterine tenderness: N/A Foul odor of amniotic fluid: N/A Chorioamnionitis: N/A HIV Status/treatment: Not indicated Hepatitis B Surface Antigen: Negative Syphilis: Negative Assessment monitoring: Contiunous - External Continuous - Internal IUPC - Contraction heart rate characteristics/comments: Cat 1 Cat 2 demise: N/A Anesthesia Labor analgesia: Epidural, Delivery anesthesia: Epidural, Adjunctive analgesia: Incisional local, Other Anesthetic complications: Failed epidural, Additional comments: fentanyl given for repair due to failed epidural Maternal Delivery Delivery type: Spontaneous Vaginal Delivery Presentation: Vertex Position: OA indication: Forceps Attempted: No Vacuum Attempted: No Operative Vaginal Delivery Indication: N/A Station ??? Initial Application: N/A Details of Shoulder Dystocia (if applicable) Dystocia Present? No Maneuvers Performed (if applicable) Placenta Delivered: 09/05/2018 3:48 Delivery method: Expressed;Controlled Cord Traction Morphology: Normal Disposition: Lab Cord Details Vessels: 3 Vessels Complications: None Nuchal intervention: Nuchal cord description: Cord around: Number of loops: Gases Sent? Yes Cord Blood Sent: None Stem cell collection (by )? Comments: Lacerations/Episiotomy Lacerations: Yes Periurethral: N/A Additional Lacerations: Sulcus Labial Episiotomy: None Indication: N/A Repair Suture: 3-0 Vicryl Procedures Additional Procedures: None Hemorrhage (if applicable) hemorrhage: EBL > 500 cc Estimated blood loss (mL): 600.00 Uterotonics/PPH Procedures: Uterine massage, Oxytocin, Misoprostol -buccal, PGF2a, Blood Products Transfused: (if applicable) None Labor Length Duration of 1st Stage: hours minutes Duration of 2nd Stage: hours minutes Duration of 3rd Stage: 0 hours 5 minutes Duration of Cord Clamp Delay: 60 seconds Precipitous Labor (<3 hours): No Prolonged Labor (>20 hours): No : Date of : 09/05/2018 Time of : 034 Sex: female Weight (grams): 3356 g (7 lb 6.4 oz) Length (in): 21 Head circumference (in): 13.78 Observed anomalies, comments: Meconium Present at Delivery: No (<37 wks): No Late (34-37 wks): No Steroid Course: Not indicated Indication: N/A PPROM Gestational Age: N/A APGARS Totals: 8 /9 /-/-/- Resuscitation Resuscitation: None Delivery Personnel Delivering Clinician: GRACE PAULSON Additional Personnel: ROGER TREVIZO;EDGAR MENDEZ;ROSETTA LOAIZA;LAUREL COLLINS;PED NICU TEAM ROM Duration: rupture date or rupture time have not been documented Induction Duration (if applicable): Labor and Delivery comments: Ann Yen is a 23 y.o. now who presented at 39w2d for pre-eclampsia without severe features. While in labor, she developed severe range blood pressures and was initiated on magnesium for seizure prophylaxis. She also required IV antihypertensives for blood pressure control (labetalol 60mg total and hydralazine 10mg total). She progressed to complete with CRB, misoprostol and pitocin and had an of a live female, 3356g and Apgars 8 and 9. Delivered OA, no nuchal cord, no meconium. Body delivered without difficulty. Cord clamped and cut after 60 seconds of delayed cord clamping. Baby handed to awaiting pediatricians for assessment. Placenta delivered spontaneously, intact with 3 vessel cord. Brisk uterine bleeding noted, which improved after fundalmassage, double strength Pitocin, buccal misoprostol, and hemabate. TXA also given and Jose OLIVEIRA notified of bleeding which had stabilized by the time she arrived at the bedside. Perineum and vagina inspected - bilateral vaginal to labial lacerations noted to be bleeding briskly as well. Repaired with3-0 vicryl suture in the usual fashion under local anesthesia and administration of IV fentanyl due to failed epidural. EBL 600cc. Good hemostasis noted. Patient tolerated procedure well, recovering inL&D suite. Delivery was attended by Grace Paulson CNM who was present for delivery. Roger Trevizo MD 09/05/2018 5:14 Pager #[phone] Attestation statement: I saw and examined the patient with the resident/fellow. I agree with the findings and plan of care documented in the resident's/fellow's note with my edits. Grace Paulson CNM 09/05/18 Anesthesia Pre-Eval - Raymond, Suraj Ferreira MD - 09/04/2018 1746 EDT Obstetric Anesthesia Consult Name: ANN YEN : 1995 Date: 09/04/2018 Age: 23 y.o. GA: 39w1d Guidance Services Coordinator: Meir Weaver MD Obstetric History: Obstetric History Complications during : Complicated By: Complicated by: PEC w/o SFs, morbid obesity (BMI 45) Allergies Allergen Reactions ??? Adhesive rash ??? Ciprofloxacin Dizziness and vomiting Anesthetic History: Anesthesia History Previous Patient or Family Problems with Anesthesia: Yes, Previous Issues Include:: Other(post-op nausea, I don't wake up well) Airway Evaluation: Airway Evaluation Mallampati: 3 Mouth Opening: Normal Jaw Thrust: Normal Thyro-Mental Distance: Normal Neck Eval: ROM Normal Teeth: Normal Review of Systems: Smoker: Quit(quit with ) History of Respiratory Infections: Yes How Long Ago: 2 weeks Respiratory Shortness of Breath: No Asthma: No Heart Murmur: No High Blood Pressure: Yes Onset of Hypertension: Only with , Pre- Eclampsia Angina/Palpitations: No Blood Vessel Disease: No Neurological Disease: No Muscular Degeneration: No Backpain/Neckpain: Yes Reflux/Heartburn/Hiatial Hernia: Yes GI Additional Info: Taking Medication Liver Disease: No Thyroid Disease: No Kidney Disease: No Diabetes: No Anemia: No Bleeding Disorders: No Previous Anesthesia for Childbirth: No Infectious Disease: No Opioid Dependency: No Past Surgical History: Procedure Laterality Date ??? CHOLECYSTECTOMY ??? TONSILLECTOMY ??? WISDOM TOOTH EXTRACTION Current Facility-Administered Medications: acetaminophen (TYLENOL) tablet 650 mg oral Q4H PRN carboprost (HEMABATE) intramuscular injection 250 mcg intramuscular PRN ibuprofen (MOTRIN) tablet 400 mg oral Q4H PRN lactated ringers (LR) infusion intravenous CONTINUOUS methylergonovine (METHERGINE) injection 200 mcg intramuscular PRN miSOPROStol (CYTOTEC) tablet 200 mcg buccal PRN miSOPROStol (CYTOTEC) tablet 800 mcg rectal PRN ondansetron (PF) (ZOFRAN) injection 4 mg intravenous Q4H PRN oxytocin in lactated ringers 30 units/500 ml intravenous ONCE And oxytocin in lactated ringers 30 units/500 ml intravenous ONCE oxytocin in lactated ringers 30 units/500 ml intravenous CONTINUOUS penicillin G potassium 2.5 Million Units in dextrose (D5W) 100 mL IVPB intravenous Q4H No outpatient medications have been marked as taking for the 09/04/18 encounter (Hospital Encounter) with Meir Weaver MD. Vital Signs: BP (!) 153/85 Pulse 76 Temp (!) 35.1 ??C (95.2 ??F) (Tympanic) Resp 20 Ht 180.3 cm (71) Wt (!) 145.2 kg (320 lb) LMP 11/20/2017 (Exact Date) BMI 44.63 kg/m?? Labs: Lab Results Component Value Date WBC 11.76 09/04/2018 HGB 12.2 09/04/2018 HCT 35.8 09/04/2018 MCV 91 09/04/2018 PLT 275 09/04/2018 NA 136 08/30/2018 K 4.0 08/30/2018 CL 106 08/30/2018 CO2 22 08/30/2018 BUN 12 09/04/2018 CREATININE 0.53 09/04/2018 Blood/Cultures: Recent Results (from the past 1008 hour(s)) TYPE AND SCREEN Collection Time: 09/04/18 9:00 Result Value Ref Range Status Antibody Screen Negative Final Specimen Expires: 09/07/2018 @ 23:59 Final ABO A Final Rh Factor Positive Final GROUP B STREP PCR Collection Time: 08/15/18 9:03 Result Value Ref Range Status GROUP B STREP PCR Positive (AA) Final ASA Classification: Grade III Plan: epidural, general, spinal, TAP block mode(s) of anesthesia were discussed. Risks discussed included: Bleeding, Infection, Nerve Injury, Spinal headaches, low blood pressures with underperfusion, high spinals, hematomas, failure and replacement. All of Ann Yen's questions were answered to her satisfaction. Unless otherwise noted, follow standard anesthesia pre-operative protocol. Suraj Andrade MD 09/04/2018 Associated attestation - Ivet Fry MD - 09/04/20182007 EDT Attestation statement: I saw and examined the patient with the resident/fellow. I agree with the findings and plan of care documented in the resident's/fellow's note. Ivet Fry MD documented in this encounter Plan of Treatment Scheduled Referrals Name Type Priority Associated Diagnoses Order S chedule AMB CONS/FOLLOW UP Outpatient Referral Routine Supervision of Ordered: OBSTETRICS normal first 09/07/2018 , antepartum Anxiety and depression documented as of this encounter Procedures Procedure Name Priority Date/Time Associated Comments Diagnosis SURGICAL PATHOLOGY Routine 09/05/2018 9:16 EDT Re sults for this procedure are i n the results section. BLOOD GASES, CORD STAT 09/05/2018 3:45 EDT Res ults for this VENOUS procedure are i n the results section. BLOOD GASES, CORD STAT 09/05/2018 3:45 EDT Res ults for this ARTERIAL procedure are i n the results section. SLIDE REQUEST Routine 09/04/2018 22:13 Results fo r this EDT procedure are i n the results section. FIBRINOGEN STAT 09/04/2018 22:13 Results for this EDT procedure are i n the results section. COMPLETE BLOOD COUNT STAT 09/04/2018 22:13 Res ults for this EDT procedure are i n the results section. URIC ACID STAT 09/04/2018 22:13 Results for this EDT procedure are i n the results section. ALT STAT 09/04/2018 22:13 Results for this EDT procedure are i n the results section. AST STAT 09/04/2018 22:13 Results for this EDT procedure are i n the results section. LDH STAT 09/04/2018 22:13 Results for this EDT procedure are i n the results section. CREATININE STAT 09/04/2018 22:13 Results for this EDT procedure are i n the results section. PREPARE RED BLOOD Routine 09/04/2018 15:16 Result s for this CELLS EDT procedure are i n the results section. PREPARE RED BLOOD Routine 09/04/2018 15:16 Result s for this CELLS EDT procedure are i n the results section. TYPE AND SCREEN STAT 09/04/2018 9:00 EDT Resul ts for this procedure are i n the results section. FIBRINOGEN STAT 09/04/2018 8:57 EDT Results for this procedure are i n the results section. COMPLETE BLOOD COUNT STAT 09/04/2018 8:57 EDT Results for this procedure are i n the results section. URIC ACID STAT 09/04/2018 8:57 EDT Results for this procedure are i n the results section. BUN STAT 09/04/2018 8:57 EDT Results for this procedure are i n the results section. ALT STAT 09/04/2018 8:57 EDT Results for this procedure are i n the results section. AST STAT 09/04/2018 8:57 EDT Results for this procedure are i n the results section. LDH STAT 09/04/2018 8:57 EDT Results for this procedure are i n the results section. CREATININE STAT 09/04/2018 8:57 EDT Results for this procedure are i n the results section. documented in this encounter Results SURGICAL PATHOLOGY (09/05/2018 9:16 EDT) Pathology Report: SURGICAL PATHOLOGY REPORT [facility] Reports generated via electronic interface contain shyann ginal data; LABORATORY however they are lacking the format of the original re port. SERVICES Caution should be taken when reading/interpreting unfo rmatted reports. Name: ? ADILENE YEN ? Accession #: ? [id number] ? : ? 1995 (Age: 3 2) ??F ? Collect Date: ? 09/05/2018 ? Location: ? B07M ? Receive Date: ? 9 ? Provider: MEIR WEAVER MD Copy to: ROGER SANCHEZ MD ? Final Pathologic Diagnosis: GUTIERREZ PLACENTA, 39 WEEKS (+2 DAYS) GESTATION, VAGI NAL DELIVERY: - Mature placenta with marked decidual arteriopathy. S ee Comment. ? - Placental weight 538 g (75-90th percentile fo r gestational age). ? - 3-vessel umbilical cord with eccentric insert ion. ? - membranes wit h marginal insertion, and sections showing decidual arteriopathy. ? - Villous maturation appropriate for gestationa l age. Other findings: intervillous thrombus. Comment: These findings may be seen in association with h ypertension and preeclampsia. Document reviewed and electronically signed by: NITIN BOWENS MD PHD Report ??Date: 09/12/2018 12:28 By the signature above, the attending physician certif ies that he/she has personally conducted a gross and/or microscopic examin ation of the described specimens and rendered or confirmed the above diagnosi s. Specimen(s) Received: Placenta Clinical History: Pre-eclampsia with severe features at 39w2d Gross Description: ? Received fresh labell ed with proper patient identification (initials M, D) and not otherwise specified is a gutierrez placenta (19.0 x 17.5 x 2.5 cm) with attached umbilical cord (19.0 cm in jesus th x 1.0-2.0 cm in diameter) and membranes, as well as a deta ched segment of umbilical cord (17.0 cm in length x 1.0 cm in diameter). After the cord and membranes are removed, the ovoid placental disc weighs 538 g. ? The membranes a re mariscal-garcia and translucent with focal opacification and adherent blood clot and insert at the disc margin. The umbilical cord is white, shiny and coiled, with three vess els, and inserts eccentrically, 3.0 cm from the nearest disc margin. The surface is vanessa e-garcia with the usual arborizing vasculature. The maternal surface is red-br own with intact and complete cotyledons and a small amount of loosely ayaka ched blood clot. Sectioning reveals a dark red, spongy cut surface with scattered mariscal-white, firm, and layered peripherally located nodules (1.0 cm maximum dimension) occupying less than 5% of the disc space. ? [employer] sections are submitted as follows: BLOCK DANIELS 1-2- ?? membranes and umbilical cord 3-4- ??placental disc, central, bisected 5- ??placental disc, peripheral 6- ??peripheral nodule, major account representative Dr. Christine 09/06/2018 2:13 PM End of Report Specimen Performing Organization Address City/[facility]/ZIP Code Phon e Number [facility] [address] [place] [address] SERVICES BLOOD GASES, CORD VENOUS (09/05/2018 3:45 EDT) pH, Cord blood magdalena 7.37Comment: 7.25 - 7.45 [facility] Note new method LABORATORY SERVICES in use 04/24/2018 PCO2, Cord blood 36Comment: Note mmHg [facility] new method in LABORATORY SERVICES use 04/24/2018 PO2, Cord bld magdalena 33Comment: Note 17 - 41 mmHg [facility] new method in LABORATORY SERVICES use 04/24/2018 tCO2, Cord blood 21 14 - 22 mEq/L [facility] SERVICES Base Deficit 4.6 [facility] SERVICES Specimen Blood Performing Organization Address [facility]/ZIP Code Phon e Number [facility] [address] [place] [address] SERVICES BLOOD GASES, CORD ARTERIAL (09/05/2018 3:45 EDT) pH, Cord blood art 7.31Comment: 7.18 - 7.38 [facility] Note new method LABORATORY SERVICES in use 04/24/2018 PCO2, Cord blood 42Comment: Note mmHg [facility] new method in LABORATORY SERVICES use 04/24/2018 PO2, Cord bld art 24Comment: Note <31 mmHg [facility] new method in LABORATORY SERVICES use 04/24/2018 tCO2, Cord blood 22 14 - 22 mEq/L [facility] SERVICES Base Deficit 5.2 [facility] SERVICES Specimen Blood specimen (specimen) - Blood Performing Organization Address City/[facility]/ZIP Code Phon e Number [facility] [address] [place] [address] SERVICES SLIDE REQUEST (09/04/2018 22:13 EDT) Pathologist Sig nature Note A smear is filed in [facility] the Hematology lab LABORATORY SERVICES Specimen Blood Performing Organization Address City/[facility]/ZIP Code Phon e Number [facility] [address] [place] [address] SERVICES URIC ACID (09/04/2018 22:13 EDT) Pathologist Sig nature Uric Acid 5.3 2.2 - 7.7 mg/dl [facility] SERVICES Specimen Blood specimen (specimen) - Blood Performing Organization Address City/State/ZIP Code Phon e Number [facility] [address] [place] [address] SERVICES LDH (09/04/2018 22:13 EDT) Pathologist Sig nature LDH 363 313 - 618 U/L [facility] RY SERVICES Specimen Blood specimen (specimen) - Blood Performing Organization Address [facility]/ZIP Code Phon e Number [facility] [address] [place] [address] SERVICES (ABNORMAL) COMPLETE BLOOD COUNT (09/04/2018 22:13 EDT) Pathologist Sig nature WBC 23.15 (H) 4.0 - 12.4 K/cmm [facility] SERVICES RBC 4.04 3.86 - 5.04 M/cmm [facility] SERVICES Hemoglobin 12.5 11.6 - 15.2 gm/dl [facility] SERVICES HCT 35.8 34.9 - 44.4 % [facility] SERVICES MCV 89 81 - 98 fl [facility] SERVICES MCH 30.9 26.7 - 33.3 pg [facility] SERVICES MCHC 34.9 32.1 - 35.9 gm/dl [facility] SERVICES RDW-CV 13.2 <14.7 % [facility] SERVICES RDW-SD 42.9 <50.4 fl [facility] SERVICES PLT 279 141 - 377 K/cmm [facility] SERVICES MPV 9.5 9.5 - 12.7 fl [facility] SERVICES Specimen Blood specimen (specimen) - Blood Performing Organization Address City/State/ZIP Code Phon e Number [facility] [address] [place] [address] SERVICES (ABNORMAL) FIBRINOGEN (09/04/2018 22:13 EDT) Pathologist Sig nature Fibrinogen 417 (H) 171 - 384 mg/dl [facility] SERVICES Specimen Blood specimen (specimen) - Blood Performing Organization Address City/State/ZIP Code Phon e Number [facility] [address] [place] [address] SERVICES (ABNORMAL) CREATININE (09/04/2018 22:13 EDT) Creatinine 0.46 (L) 0.52 - 1.04 [facility] mg/dl LABORATORY SERVICES GFR, Calculated 142 >60 [facility] Comment: ml/min/1.73m2 LABORATORY eGFR calculated using CKD-EPI equation for SERVICES non Americans. Multiply eGFR by 1.16 for Americans. Specimen Blood specimen (specimen) - Blood Performing Organization Address [facility]/ZIP Code Phon e Number [facility] [address] [place] [address] SERVICES AST (09/04/2018 22:13 EDT) Pathologist Sig nature AST 18 15 - 46 U/L [facility] LABOR[facility] Y SERVICES Specimen Blood specimen (specimen) - Blood Performing Organization Address [facility]/ZIP Code Phon e Number [facility] [address] [place] [address] SERVICES ALT (09/04/2018 22:13 EDT) Pathologist Sig nature ALT 24 <53 U/L [facility] Y SERVICES Specimen Blood specimen (specimen) - Blood Performing Organization Address [facility]/ZIP Code Phon e Number [facility] [address] [place] [address] SERVICES PREPARE RED BLOOD CELLS (09/04/2018 15:16 EDT) Product Code [id number] [facility] Donor Number [id number] [facility] Unit ABO A [facility] Unit Rh POS [facility] Unit Status RE^Released From [facility] BLOOD BANK Product Expiration [id number] [facility] BLOOD BANK Unit Blood Type 6200 [facility] BLOOD BANK Coding System [id number] [facility] Specimen Performing Organization Address City/[facility]/ZIP Code Phon e Number [facility] [address] [facility] [place], [place] [id number] [place] [address] BLOOD BANK PREPARE RED BLOOD CELLS (09/04/2018 15:16 EDT) Product Code [id number] [facility] Donor Number [id number] [facility] Unit ABO A [facility] Unit Rh POS [facility] Unit Status RE^Released From [facility] BLOOD BANK Product Expiration [id number] [facility] BLOOD BANK Unit Blood Type 6200 [facility] BLOOD BANK Coding System [id number] [facility] Specimen Blood specimen (specimen) Performing Organization Address [facility]/ZIP Code Phon e Number [facility] [address] BLOOD BANK TYPE AND SCREEN (09/04/2018 9:00 EDT) Antibody Screen Negative [facility] Comment: BLOOD BANK Patient is electronic crossmatch eligible. Units available upon request for transfusion. Specimen Expires: 09/07/2018 @ 23:59 [facility] BLOOD BANK ABO A [facility] BLOOD [facility] Rh Factor Positive [facility] BLOOD [facility] Specimen Blood specimen (specimen) Performing Organization Address [facility] Phon e Number [facility] BLOOD [facility] [address] [place] [id number] [place] [address] BLOOD BANK URIC ACID (09/04/2018 8:57 EDT) Pathologist Sig nature Uric Acid 5.9 2.2 - 7.7 mg/dl [facility] LABORA TORY SERVICES Specimen Blood specimen (specimen) - Blood Performing Organization Address [facility]/ZIP Code Phon e Number [facility] [address] [place] [address] SERVICES LDH (09/04/2018 8:57 EDT) Pathologist Sig nature LDH 402 313 - 618 U/L [facility] RY SERVICES Specimen Blood specimen (specimen) - Blood Performing Organization Address [facility]/[place]IP [facility] [place] [facility] [address] [place] [address] SERVICES (ABNORMAL) FIBRINOGEN (09/04/2018 8:57 EDT) Pathologist Sig nature Fibrinogen 434 (H) 171 - 384 mg/dl [facility] SERVICES Specimen Blood specimen (specimen) - Blood Performing Organization Address [facility]/ZIP [facility] [place] [facility] [address] [place] [address] SERVICES CREATININE (09/04/2018 8:57 EDT) Creatinine 0.53 0.52 - 1.04 [facility] mg/dl LABORATORY SERVICES GFR, Calculated 135 >60 [facility] Comment: ml/min/1.73m2 LABORATORY eGFR calculated using CKD-EPI equation for SERVICES non Americans. Multiply eGFR by 1.16 for Americans. Specimen Blood specimen (specimen) - Blood Performing Organization Address [facility]/ZIP Code Phon e Number [facility] [address] [place] [address] SERVICES BUN (09/04/2018 8:57 EDT) Pathologist Sig nature BUN 12 10 - 26 mg/dl [facility] RY SERVICES Specimen Blood specimen (specimen) - Blood Performing Organization Address [facility]/ZIP Code Phon e Number [facility] [address] [place] [address] SERVICES AST (09/04/2018 8:57 EDT) Pathologist Sig nature AST 20 15 - 46 U/L [facility]OR[facility] Y SERVICES Specimen Blood specimen (specimen) - Blood Performing Organization Address [facility]/ZIP Code Phon e Number [facility] [address] [place] [address] SERVICES ALT (09/04/2018 8:57 EDT) Pathologist Sig nature ALT 15 <53 U/L [facility]OR[facility] Y SERVICES Specimen Blood specimen (specimen) - Blood Performing Organization Address [facility]/[place]IP [facility] [place] [facility] [address] [place] [address] SERVICES COMPLETE BLOOD COUNT (09/04/2018 8:57 EDT) Pathologist Sig nature WBC 11.76 4.0 - 12.4 K/cmm [facility] SERVICES RBC 3.94 3.86 - 5.04 M/cmm [facility] SERVICES Hemoglobin 12.2 11.6 - 15.2 gm/dl [facility] SERVICES HCT 35.8 34.9 - 44.4 % [facility] SERVICES MCV 91 81 - 98 fl [facility] SERVICES MCH 31.0 26.7 - 33.3 pg [facility] SERVICES MCHC 34.1 32.1 - 35.9 gm/dl [facility] SERVICES RDW-CV 13.3 <14.7 % [facility] SERVICES RDW-SD 43.4 <50.4 fl [facility] SERVICES PLT 275 141 - 377 K/cmm [facility] SERVICES MPV 9.7 9.5 - 12.7 fl [facility] SERVICES Specimen Blood specimen (specimen) - Blood Performing Organization Address City/State/ZIP Code Phon e Number [facility] [address] [place] [address] SERVICES documented in this encounter Visit Diagnoses Diagnosis Supervision of normal - Primar y Supervision of other normal Supervision of normal first , a ntepartum Anxiety and depression Dysthymic disorder documented in this encounter Administered Medications Inactive Administered Medications - up to 3 most recent administrations Medication Order MAR Action Action Date Dose Rate Site acetaminophen (TYLENOL) tablet 650 mg Given 09/06/2018 0:27 EDT 650 mg 650 mg, oral, EVERY 4 HOURS PRN, Starting on Sun09/04/18 at 0838, Until Sun09/06/18 at 0341, Pain, Post-, Routine Given 09/05/2018 20:04 EDT 650 mg Given 09/05/2018 16:15 EDT 650 mg acetaminophen (TYLENOL) tablet 650 mg Given 09/07/2018 3:18 EDT 650 mg 650 mg, oral, EVERY 4 HOURS PRN, Starting on Sun09/06/18 at 0343, Until Sun09/07/18 at 1437, Pain, Routine Given 09/06/2018 18:16 EDT 650 mg Given 09/06/2018 14:20 EDT 650 mg bupivacaine-fentanyl in NS 0.0625 %-2 mc g/mL 250 mL epidural 1 dose, Starting on Sun09/04/18 at 1848, Until Sun at 2050, Created by cabinet override bupivacaine-fentanyl in NS 0.0625 %-2 mcg/mL 250 New Bag 9 20:50 EDT mL epidural epidural, CONTINUOUS, Starting on Sun09/04/18 at 2015, Until Sun09/06/18 at 0341, PCEA Dose: 8 mL LOCKOUT Interval: 10 minutes ONE HOUR Dose Limit: 36 mL BASAL Rate: 10 mL/hr, Routine, Recovery (only) carboprost (HEMABATE) Given 09/05/2018 3:53 EDT 250 mcg Right Vastus Lateralis intramuscular injection 250 mcg 250 mcg, intramuscular, PRN, Starting on Sun09/04/18 at 0838, Until Sun09/06/18 at 0341, Other, , Routine docusate sodium (COLACE) capsule 100 mg Given 09/06/2018 8:44 EDT 100 mg 100 mg, oral, 2 TIMES DAILY PRN, Starting on Sun09/06/18 at 0343, Until 09/07/18 at 1437, Constipation, Routine fentaNYL citrate (PF) 50 mcg/mL injectio n 1 dose, Starting on Clarissa 09/05/18 at 0354, Until Sun at 0401 fentaNYL citrate (PF) injection 100 mcg Given 09/05/2018 4:01 EDT 100 mcg 100 mcg, intravenous, NOW X1, 1 dose, On Sun09/05/18 at 0700, Routine hydrALAzine (APRESOLINE) 20 mg/mL inject ion 1 dose, Starting on Sun09/05/18 at 0257, Until Sun at 0300 hydrALAzine (APRESOLINE) injection 10 mg Given 09/05/2018 3:00 EDT 20 mg 10 mg, intravenous, NOW X1, 1 dose, On Sun09/05/18 at 0315, Routine hydrALAzine (APRESOLINE) injection 10 mg Given by Other 09/05/2018 3:23 EDT 10 mg 10 mg, intravenous, NOW X1, 1 dose, On Sun09/05/18 at 0345, Routine ibuprofen (MOTRIN) tablet 400 mg Given 09/06/2018 0:27 EDT 400 mg 400 mg, oral, EVERY 4 HOURS PRN, Starting on Sun09/04/18 at 0838, Until Sun09/06/18 at 0341, Pain, post-, Routine Given 09/05/2018 20:04 EDT 400 mg Given 09/05/2018 16:15 EDT 400 mg ibuprofen (MOTRIN) tablet 400 mg Given 09/07/2018 3:18 EDT 400 mg 400 mg, oral, EVERY 4 HOURS PRN, Starting on Sun09/06/18 at 0343, Until 09/07/18 at 1437, Pain, Routine Given 09/06/2018 18:16 EDT 400 mg Given 09/06/2018 14:20 EDT 400 mg labetalol (TRANDATE) 5 mg/mL injection 1 dose, Starting on Sun09/05/18 at 0223, Until Sun at 0228 labetalol (TRANDATE) injection 20 mg Given 09/05/2018 2:28 EDT 20 mg 20 mg, intravenous, NOW X1, 1 dose, On Sun09/05/18 at 0245, Routine labetalol (TRANDATE) injection 40 mg Given 09/05/2018 2:42 EDT 40 mg 40 mg, intravenous, NOW X1, 1 dose, On Sun09/05/18 at 0300, Routine lactated ringers (LR) infusion Rate Change 09/06/2018 0:51 EDT 25 mL/hr 25 mL/hr at 25 mL/hr, intravenous, CONTINUOUS, Starting on Sun09/04/18 at 1100, Until Sun09/06/18 at 0341, Routine New Bag 09/05/2018 22:04 EDT 75 mL/hr 75 mL/hr New Bag 09/05/2018 8:31 EDT 75 mL/hr 75 mL/hr lansinoh HPA lanolin Given 09/06/2018 8:44 EDT 7 g topical, PRN, Starting on Sun09/06/18 at 0343, Until Sun09/07/18 at 1437, Other, breast feeding loperamide (IMODIUM) capsule 2 mg Given 09/05/2018 4:40 EDT 2 mg 2 mg, oral, 4 TIMES DAILY PRN, Starting on Sun09/05/18 at 0418, Until Sun09/06/18 at 0343, Diarrhea, Routine magnesium sulfate in water 40 gram/1,000 mL (4 %) Given 09/05/19 19 22:07 EDT infusion 4 g 4 g, intravenous, NOW X1, 1 dose, On Sun09/04/18 at 2145, Routine magnesium sulfate in water 40 Rate Documented 09/05/2018 21:00 EDT 2 g/hr 50 mL/hr gram/1,000 mL (4 %) infusion 2 g/hr (50 mL/hr), intravenous, at 50 mL/hr, CONTINUOUS, Starting on Sun09/04/18 at 2145, Until Sun09/05/18 at 2226, Routine Rate Documented 09/05/2018 20:00 EDT 2 g/hr 50 mL/hr New Bag 09/05/2018 16:09 EDT 2 g/hr 50 mL/hr magnesium sulfate in water 40 Rate Documented 09/06/2018 2:00 EDT 2 g/hr 50 mL/hr gram/1,000 mL (4 %) infusion 2 g/hr (50 mL/hr), intravenous, at 50 mL/hr, CONTINUOUS, Starting on Sun09/06/18 at 0115, Until Sun09/06/18 at 0343, Routine Rate Documented 09/06/2018 1:00 EDT 2 g/hr 50 mL/hr New Bag 09/05/2018 22:07 EDT 2 g/hr 50 mL/hr miSOPROStol (CYTOTEC) tablet 200 mcg Given 09/05/2018 3:48 EDT 200 mcg 200 mcg, buccal, PRN, Starting on Sun09/04/18 at 0838, Until Sun09/06/18 at 0341, Other, , Routine misoprostol (CYTOTEC) tablet 25 mcg Given by Other 09/04/2018 10:00 EDT 25 mcg 25 mcg, cervical, EVERY 3 HOURS, First dose on Sun09/04/18 at 0945, Until Discontinued, Routine multivitamin vit-iron fumarate-FA Given 09/06/2018 8:44 EDT 1 Tablet (STUARTNATAL) 27 mg iron- 1 mg tablet 1 tablet 1 Tablet, oral, DAILY, First dose on Sun09/06/18 at 0900, Until Discontinued, Routine ondansetron (PF) (ZOFRAN) 4 mg/2 mL inje ction 1 dose, Starting on Sun09/04/18 at 1517, Until Sun at 1523 ondansetron (PF) (ZOFRAN) injection 4 mg Given 09/04/2018 23:59 EDT 4 mg 4 mg, intravenous, EVERY 4 HOURS PRN, Starting on Sun09/04/18 at 1514, Until Sun09/06/18 at 0343, Nausea, Routine Given 09/04/2018 15:23 EDT 4 mg oxytocin in lactated ringers 30 IV Resume 09/05/2018 4:08 EDT 12 Units/hr 200 mL/hr units/500 ml 200 mL/hr, intravenous, ONCE, 1 dose, Starting on Sun09/04/18 at 0838, Until Clarissa 09/05/18 at 0348, Routine Given 09/05/2018 3:48 EDT 24 Units/hr 400 mL/hr oxytocin in lactated ringers IV Resume 09/05/2018 5:08 EDT 8.1 U nits/hr 135 mL/hr 30 units/500 ml 135 mL/hr, intravenous, ONCE, 1 dose, Starting on Sun09/04/18 at 0838, Until Sun09/06/18 at 0341, Routine oxytocin in lactated Rate Change-ICU/L&D 09/05/2018 3:18 3 walker-un its/min 3 mL/hr ringers 30 units/500 Only EDT ml 1-30 walker-units/min (1-30 mL/hr), intravenous, CONTINUOUS, Starting on Sun09/04/18 at 1445, Until Sun09/05/18 at 0911, Routine IV Resume 09/05/2018 3:05 EDT 1 walker-units/min 1 mL/hr Rate Change-ICU/L&D Only 09/04/2018 15:55 EDT 2 walker-units/min 2 m L/hr penicillin G potassium 2.5 Million Given 09/05/2018 1:45 EDT 2.5 Million Units Units in dextrose (D5W) 100 mL IVPB 2.5 Million Units, intravenous, Administer over 30 Minutes, EVERY 4 HOURS, 12 doses, First dose on Sun09/04/18 at 1245, Last dose on Sun09/06/18 at 0800, Routine Given 09/04/2018 21:28 EDT 2.5 Million Units Given 09/04/2018 17:32 EDT 2.5 Million Units penicillin G potassium 5 Million Units Given 9 9:32 EDT 5 Million Units in dextrose (D5W) 150 mL IVPB 5 Million Units, intravenous, Administer over 30 Minutes, NOW X1, 1 dose, On Sun09/04/18 at 0900, STAT ranitidine (ZANTAC) tablet 150 mg Given 09/05/2018 22:07 EDT 150 mg 150 mg, oral, 2 TIMES DAILY, First dose on Sun09/04/18 at 2315, Until Discontinued, Routine Given 09/05/2018 11:30 EDT 150 mg Given 09/04/2018 23:27 EDT 150 mg tranexamic acid (CYKLOKAPRON) 1,000 mg/1 0 mL (100 mg/mL) injection 1 dose, Starting on Sun09/05/18 at 0353, Until Sun at 0359 tranexamic acid (CYKLOKAPRON) injection 1,000 Given 3:59 EDT 1,000 mg IV mg 1,000 mg (1 g), intravenous, NOW X1, 1 dose, On Clarissa 09/05/18 at 0700, Routine documented in this encounter Discontinued Medications Medication Sig Discontinue Reason Start Date End Date acetaminophen (TYLENOL) Take 650 mg by 325 mg tablet mouth every 4 hours as needed for Pain (shoulder pain). ascorbic acid, vitamin C, Take 250 mg by 09/07/2018 (VITAMIN C) 250 mg tablet mouth daily. aspirin chewable 81 mg Take 81 mg by 08/2018 tablet mouth daily. magnesium oxide (MAG-OX) Take 400 mg by 0 09/07/2018 400 mg (241.3 mg mouth daily. magnesium) tablet documented as of this encounter Active and Recently Administered Medications Times are shown in EDT. Scheduled Medication Order 09/05/2018 09/06/2018 09/07/2018 fentaNYL citrate (PF) injection 100 mcg (COMPLETED) 08 05 (Given - Provider: Edgar Mendez RN - Comment: Given per verbal order by MD Trevizo) 100 mcg, intravenous, NOW X1, 1 dose, Clarissa 09/05/18 at 0700, Routin e hydrALAzine (APRESOLINE) injection 10 mg (COMPLETED) 0 300 (Given - Provider: Edgar Mendez RN) 10 mg, intravenous, NOW X1, 1 dose, Clarissa 09/05/18 at 0315, Routine hydrALAzine (APRESOLINE) injection 10 mg (COMPLETED) 0 323 (Given by Other - Provider: Edgar Mendez RN - Comment: Given IVP by MD Trevizo) 10 mg, intravenous, NOW X1, 1 dose, Clarissa 09/05/18 at 0345, Routine labetalol (TRANDATE) injection 20 mg (COMPLETED) 0228 (Given - Provider: Edgar Mendez RN - Comment: IVP by MD Trevizo) 20 mg, intravenous, NOW X1, 1 dose, Clarissa 09/05/18 at 0245, Routine labetalol (TRANDATE) injection 40 mg (COMPLETED) 024 (Given - Provider: Edgar Mendez RN - Comment: by MD Tuttle at bedside) 40 mg, intravenous, NOW X1, 1 dose, Clarissa 5/2/19 at 0300, Routine multivitamin vit-iron fumarate- FA (STUARTNATAL) 27 mg iron- 1 mg tablet 1 tablet 0844 (Given - Provider: Leann Goodman RN) 0900 (Not Given - Provider: Shantelle Ames RN - Reason: Patient/family refused) 1 tablet, oral, DAILY, First dose on Sun09/06/18 at 0900, Until Discontinued, Routine oxytocin in lactated ringers 30 units/500 ml (COMPLETE D) 0348 (Given - Provider: Edgar Mendez RN - Comment: 2x strength per CHAITANYA Paulson)0408 (IV Resume - Provider: Edgar Mendez RN) 200 mL/hr, intravenous, ONCE, 1 dose, Sun09/04/18 at 0838, Until Clarissa 09/05/18 at 0348, Routine oxytocin in lactated ringers 30 units/500 ml (CANCELED ) 0508 (IV Resume - Provider: Edgar Mendez RN)0608 (IV Stopped - Provider: Edgar Mendez RN) 135 mL/hr, intravenous, ONCE, 1 dose, Sun09/04/18 at 0838, Until Sun09/06/18 at 0341, Routine penicillin G potassium 2.5 Million Units in dextrose (D5W) 100 mL IVPB (CANCELED) 0145 (Given - Provider: Edgar Mendez RN)0612 (Not Given - Provider: Edgar Mendez RN - Reason: Discontinued - Comment: pt delivered)1101 (Hold - Provider: Elizabeth Brady RN - Reason: Order parameters not met) 2.5 Million Units, intravenous, Administ er over 30 Minutes, EVERY 4 HOURS, 12 doses, First dose on Sun09/04/18 at 1245, Last dose on Sun09/06/18 at 0800, Routine ranitidine (ZANTAC) tablet 150 mg (CANCELED) 1130 (Giv en - Provider: Elizabeth Brady RN)2207 (Given - Provider: Edgar Mendez RN) 150 mg, oral, 2 TIMES DAILY, First dose on Sun09/04/18 at 2315, Until Discontinued, Routine tranexamic acid (CYKLOKAPRON) injection 1,000 mg (COMP LETED) 0359 (Given - Provider: Edgar Mendez RN - Comment: Given per MD Trevizo verbal order at 0359) 1,000 mg (1 g), intravenous, NOW X1, 1 dose, Clarissa 09/05/18 at 0700, Routine Continuous Medication Order 09/05/2018 09/06/2018 09/07/2018 lactated ringers (LR) infusion (CANCELED) 0000 (Rate D ocumented - Provider: Edgar Mendez RN)0300 (Rate Documented - Provider: Edgar Mendez RN)0400 (Rate Documented - Provider: Edgar Mendez RN)0831 (New Bag - Provider: Elizabeth Brady RN) 0051 (Rate Change - Provider: Edgar kim RN)0342 (IV Stopped - Provider: Edgar Mendez RN) at 25 mL/hr, intravenous, CONTINUOUS, St arting Sun09/04/18 at 1100, Until Sun09/06/18 at 0341, Routine 2204 (New Bag - Provider: Edgar Mendez RN) magnesium sulfate in water 40 gram/1,000 mL (4 %) infu mariana () 0000 (Rate Documented - Provider: Edgar Mendez RN)0300 (Rate Documented - Provider: Edgar Mendez RN)0400 (Rate Documented - Provider: Edgar Mendez RN)0500 (Rate Documented - Provider: Edgar Mendez RN) 2 g/hr (50 mL/hr), intravenous, at 50 mL /hr, CONTINUOUS, Starting Sun09/04/18 at 2145, Until Sun09/05/18 at 2226, Routine 0700 (Rate Documented - Provider: Edgar Mendez RN)1609 (New Bag - Provider: Elizabeth Brday RN)2000 (Rate Documented - Provider: Edgar Mendez RN)2100 (Rate Documented - Provider: Edgar Mendez RN) magnesium sulfate in water 40 gram/1,000 mL (4 %) infu mariana (CANCELED) 2207 (New Bag - Provider: Edgar Mendez RN) 0100 (Rate Documented - Provider: Edgar Mendez RN)0200 (Rate Documented - Provider: Edgar Mendez RN)0342 (IV Stopped - Provider: Edgar Mendez RN) 2 g/hr (50 mL/hr), intravenous, at 50 mL /hr, CONTINUOUS, Starting Sun09/06/18 at 0115, Until Sun09/06/18 at 0343, Routine oxytocin in lactated ringers 30 units/500 ml (CANCELED ) 0305 (IV Resume - Provider: Edgar Mendez RN)0318 (Rate Change-ICU/L&D Only - Provider: Edgar Mendez RN - Comment: per CHAITANYA Paulson at bedside) 1-30 walker-units/min (1-30 mL/hr), intra venous, CONTINUOUS, Starting Sun09/04/18 at 1445, Until Clarissa 09/05/18 at 0911, Routine PRN Medication Order 09/05/2018 09/06/2018 09/07/2018 acetaminophen (TYLENOL) tablet 650 mg (CANCELED) 0439 (Given - Provider: Edgar Mendez RN)1109 (Given - Provider: Elizabeth Brady, TERRA)1615 (Given - Provider: Elizabeth Brady, RN)2004 (Given - Provider: Edgar Mendez RN) 0027 (Given - Provider: Edgar Mendez RN) 650 mg, oral, EVERY 4 HOURS PRN, Startin g 09/04/18 at 0838, Until Sun09/06/18 at 0341, Pain, Post-, Routine acetaminophen (TYLENOL) tablet 650 mg 04 26 (Given - Provider: Edgar Mendez RN)0844 (Given - Provider: Leann Goodman, TERRA)1420 (Given - Provider: Sherrell Rae, RN)1816 (Given - Provider: Shantelle Ames, TERRA) 0318 (Given - Provider: Clarissa Maxwell, TERRA) 650 mg, oral, EVERY 4 HOURS PRN, Startin g Sun09/06/18 at 0343, Until 09/07/18 at 1437, Pain, Routine calcium carbonate (TUMS) 200 mg calcium (500 mg) per chewable tablet tablet,chewable 2 tablet 2 tablet, oral, EVERY 2 HOURS PRN, Start ing Sun09/06/18 at 0343, Until 09/07/18 at 1437, Heartburn, Indigestion, Routine carboprost (HEMABATE) intramuscular injection 250 mcg (CANCELED) 0353 (Given - Provider: Edgar Mendez RN - Comment: given per Jose Macdonald) 250 mcg, intramuscular, PRN, Starting We d 09/04/18 at 0838, Until Sun09/06/18 at 0341, Other, , Routine docusate sodium (COLACE) capsule 100 mg 0844 (Given - Provider: Leann Goodman RN) 100 mg, oral, 2 TIMES DAILY PRN, Startin g Sun09/06/18 at 0343, Until 09/07/18 at 1437, Constipation, Routine ibuprofen (MOTRIN) tablet 400 mg (CANCELED) 0439 (Give n - Provider: Edgar Mendez RN)1110 (Given - Provider: Elizabeth Brady, RN)1615 (Given - Provider: Elizabeth Brady, RN)2003 (Given - Provider: Edgar Mendez, TERRA) 0027 (Given - Provider: Edgar Mendez RN) 400 mg, oral, EVERY 4 HOURS PRN, Startin g 09/04/18 at 0838, Until Sun09/06/18 at 0341, Pain, post-, Routine ibuprofen (MOTRIN) tablet 400 mg 0426 (G iven - Provider: Edgar Mendez RN)0844 (Given - Provider: Leann Goodman RN)1420 (Given - Provider: Sherrell Rae, TERRA)1816 (Given - Provider: Shantelle Ames, TERRA) 0318 (Given - Provider: Clarissa Maxwell, TERRA) 400 mg, oral, EVERY 4 HOURS PRN, Startin g Sun09/06/18 at 0343, Until 09/07/18 at 1437, Pain, Routine lansinoh HPA lanolin 0844 (Given - Provider: Era Goodman RN) topical, PRN, Starting Sun09/06/18 at 034 3, Until 09/07/18 at 1437, Other, breast feeding loperamide (IMODIUM) capsule 2 mg (CANCELED) 0440 (Giv en - Provider: Edgar Mendez RN) 2 mg, oral, 4 TIMES DAILY PRN, Starting Clarissa 09/05/18 at 0418, Until Sun09/06/18 at 0343, Diarrhea, Routine miSOPROStol (CYTOTEC) tablet 200 mcg (CANCELED) 0348 ( Given - Provider: Edgar Mendez RN - Comment: Given per CHAITANYA Paulson and MD Trevizo) 200 mcg, buccal, PRN, Starting Wed 9 at 0838, Until Sun09/06/18 at 0341, Other, , Routine documented in this encounter Orders Medications Ordered That Might Not Have Count Last Ord ered Date First Ordered Date Been Administered acetaminophen (TYLENOL) tablet 650 mg 1 09/06/2018 calcium carbonate (TUMS) 200 mg calcium 1 09/07/19 (500 mg) per chewable tablet tablet,chewable 2 tablet calcium gluconate 100 mg/mL (10%) 1 09/04/2018 injection 1,000 mg fentaNYL citrate (PF) 50 mcg/mL injection 1 2018 methylergonovine (METHERGINE) injection 1 09/05/19 200 mcg miSOPROStol (CYTOTEC) tablet 800 mcg 1 09/04/2018 Diet Count Last Ordered Date First Ordered Date DISCHARGE DIET 1 09/07/2018 Nursing Count Last Ordered Date First Ordered Date ACTIVITY INSTRUCTIONS 3 09/07/2018 BATHING INSTRUCTIONS 2 09/07/2018 Admission Count Last Ordered Date First Ordered Date STATUS: NON-MEDICARE OB INPATIENT 1 09/04/2018 ADMISSION Transfer Count Last Ordered Date First Ordered Date NOTIFY PPS OF DISCHARGE COMPLETE 1 09/07/2018 PPS NOTIFICATION OF PATIENT ARRIVAL ON 9 UNIT Discharge Count Last Ordered Date First Ordered Date DISCHARGE PATIENT 1 09/07/2018 Legal Count Last Ordered Date First Ordered Date MISCELLANEOUS DISCHARGE INSTRUCTIONS 2 09/07/2018 Consult to CHAIR Count Last Ordered Date First Ordere d Date CONSULT SAP CRM DEVELOPER 2 09/04/2018 documented in this encounter Care Teams Hog Ribber Relationship Specialty Start Date End Date Hi Sanchez MD PCP - General 05/20/18 documented as of this encounter
--- OUTSIDE RECORDS SUMMARY | 2021-11-14 11:59 | XMS_ITS | Encounter Summary ---
:1995 Author Organization [facility] Address [address] [place] [address] Care Team Providers Name Role Phone Hi Cadena MD Primary Care Provider Encounter Details Date Type Department Care Team Description 10/25/2019 Travel Social History Tobacco Use Types Packs/Day [...] on filedocumented in this encounter Care Teams Childcare Attendant Relationship Specialty Start Date End Date Hi Cadena MD PCP - General 05/20/18 documented as of this encounter
--- OUTSIDE RECORDS SUMMARY | 2021-11-14 11:59 | XMS_ITS | Encounter Summary ---
:1995 Author Organization [facility] Address [address] [place] [address] Care Team Providers Name Role Phone Hi Cadena MD Primary Care Provider Encounter Details Date Type Department Care Team Description 11/14/2018 Documentation Visit [facility] H[facility] Bobo [facility] Abena cuevas MD [id number] [place] [address] [phone] Social History Tobacco Use Types Packs/Day Years [...] documented as of this encounter Progress Notes Hedy Bobo MD, MD - 11/14/2018 1201 EDT Psychiatry Consultation Conference Note: Consultation to: Hi Cadena MD Consultation from: Dr. Hedy Bobo Summary: Discussed case in curbside consultation - Zoloft and post- blues/depression. Hedy Bobo MD Consulting Psychiatrist [facility] documented in this encounter Plan of Treatment Not on filedocumented as of this encounter Visit Diagnoses Not on filedocumented in this encounter Care Teams Washer Carcass Relationship Specialty Start Date End Date Hi Cadena MD PCP - General 05/20/18 documented as of this encounter
--- OUTSIDE RECORDS SUMMARY | 2021-11-14 11:59 | XMS_ITS | Encounter Summary ---
:[address] [facility] Address [address] [place] [address] Care Team Providers Name Role Phone Hi Cadena MD Primary Care Provider Reason for Visit Reason Comments Annual Exam Encounter Details Date Type Department Care Team Description 06/30/2019 Office Visit [facility] Hi Cadena, Farheen nter for preventive health examination (Primary Dx); Family Medicine - MD Need for 23-polyvalent pneumococcal poly saccharide vaccine; [address] Nephrolithiasis; [address] [place], [place] Obesity, Class III, BMI 40-4 9.9 (morbid obesity) ([facility]); [place], [place] [id number] Diabetes mellitus screening; [phone] Tobacco use dis order (Work) Social History Tobacco Use Types Packs/Day Years [...] Sign Reading Time Taken Comments Blood Pressure 134/82 06/30/2019 1053 EST Pulse 76 06/30/2019 1053 EST Temperature 37.2 ??C (99 ??F) 06/30/2019 1053 EST Respiratory Rate 16 06/30/2019 1053 EST Oxygen Saturation - - Inhaled Oxygen Concentration - - Weight 148.8 kg (328 lb) 06/30/2019 1053 EST Height 182.9 cm (6') 06/30/2019 1053 EST Body Mass Index 44.48 06/30/2019 1053 EST documented in this encounter Functional Status [...] as of this encounter Patient Instructions Patient InstructionsJason Kasper - 06/30/2019 10:45 EST Quitting smoking Stopping smoking is the best [...] with a trained counselor. Tobacco Counseling in [facility] offers free counseling services to residents who are ready to cut back or quit using tobacco. Services include: phone coaching (), online tools and support for those who would like to make changes on their own (www.[employer]), as well as in-person group workshops. Free nicotine replacement therapy is available through all of these resources. To learn more about your options visit www.[employer] or call 5-742-ZXIX-NOW ( ). To speak with an in-person tobacco counselor in [facility] call, [phone]. [facility], please visit: [email or web address] I hope you quit smoking. I think it's the best thing you can do for your health. Please call our office if you have any questions. documented in this encounter Progress Notes Ivory Farr - 06/30/2019 1045 EST Results for orders placed or performed in visit on 06/30/19 POCT URINE DIPSTICK, CLINITEK Result Value Ref Range Color, UA Yellow Yellow Clarity, UA Slightly Cloudy (A) Clear Glucose, UA Negative Negative mg/dL Bilirubin, UA Negative Negative Ketones, UA Negative Negative mg/dL Specific [place], Urine 1.020 1.001 - 1.035 Blood, UA Negative Negative pH, UA 7.0 <=8 Protein, UA Negative Negative mg/dL Urobilinogen, UA 0.2 0.2 - 1.0 EU/dL Nitrite, UA Negative Negative Leuk Esterase Negative Negative Tech ID [id number] HN LAB COMMENT (CLINITEK, UR) Test performed at [facility] Josephine Comer LPN - 06/30/2019 1045 EST Pneumococcal vaccine given right deltoid. Hi Miller MD - 06/30/2019 1045 EST Female Well Adult Preventative Care Visit Patient ID: Ann Yen is an 24 y.o. female. Subjective: HISTORY OF PRESENT ILLNESS: 24-year-old white female presents today for a preventive health screening visit with complaints of pain around the lateral rib margins which she says feels like when she had kidney stones previously. She has no dysuria urgency or evidence of any blood in her urine. She has no fevers or chills with this. The patient has a toddler who is over a year of age and is getting more active. She had a lot of anxiety when she first became a parent but is more settled. She discontinued Lexapro sometime ago as shefelt like she did not need it any longer. Patient has struggled her whole life with elevated BMI. We did some talking about healthy eating. She actually eats no food all day which is hard for me to believe but only eats an evening meal. She does drink 2 cans of soda per day and I have suggested she cut that back. She is trying to be more physically active. I let her know that I am very concerned about how high her BMI is in terms of her overall health as she gets older. We discussed briefly the option of bariatric surgery given how high herBMI is but she does not have a lot of other complications. She is agreeable to A1c and lipid panel testing today. Patient Active Problem List Diagnosis ??? BMI 39.0-39.9,adult ??? Nephrolithiasis Past Medical History: Diagnosis Date ??? 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 Anxiety and depression was formerly on meds, stopped july 2017, cannot remember med names, will find out. interested in seeing Michelle in 2nd or 3rd tri or PRN ??? Anxiety and depression was formerly on meds, stopped july 2017, cannot remember med names, will find out. interested in seeing Michelle in 2nd or 3rd tri or PRN ??? Hypertension ??? Kidney stones 2017 expectant mgmt, only 1 UTI in her lifetime ??? Supervision of normal Past Surgical History: Procedure Laterality Date ??? CHOLECYSTECTOMY ??? TONSILLECTOMY ??? WISDOM TOOTH EXTRACTION Social History Tobacco Use ??? Smoking status: Current Some Day Smoker Types: Cigarettes ??? Smokeless tobacco: Never Used ??? Tobacco comment: quit with , smokes 1-2 a day Substance Use Topics ??? Alcohol use: No Frequency: Never Comment: quit with ??? Drug use: No Comment: past hx of mj use, not during Family History Problem Relation Age of Onset ??? Thyroid Disease Mother pt unsure what type, mother had had partial thyroidectomy ??? High Blood Pressure Mother ??? *Other(comment) Mother monoclonal b cell lymhocytosis ??? Congenital heart defects Sister pt unsure what type, will find out ??? *Other(comment) Maternal Grandfather B cell lymphocytosis Allergies Allergen Reactions ??? Adhesive rash ??? Ciprofloxacin Dizziness and vomiting Current Outpatient Medications: acetaminophen (TYLENOL) 325 mg tablet hydrOXYzine (ATARAX) 25 mg tablet ibuprofen (IBU-200) 200 mg tablet Multivitamins with Minerals tablet tablet ranitidine (ZANTAC) 150 mg tablet No current facility-administered medications for this visit. ROS Objective: BP 134/82 Pulse 76 Temp 37.2 ??C (99 ??F) (Tympanic) Resp 16 Ht 182.9 cm (72) Wt (!) 148.8 kg (328 lb) No Comment: Pt reports never having regular menses BMI 44.48 kg/m?? Body mass index is 44.48 kg/m??. Physical Exam Constitutional: She is oriented to person, place, and time. She appears well- developed and well-nourished. HENT: Right Ear: Tympanic membrane normal. Left Ear: Tympanic membrane normal. Mouth/Throat: Mucous membranes are moist. Oropharynx is clear. Eyes: Pupils are equal, round, and reactive to light. Conjunctivae are normal. Neck: Neck supple. Cardiovascular: Normal rate, regular rhythm and normal heart sounds. Pulmonary/Chest: Breath sounds normal. She has no wheezes. She has no rhonchi. She has no rales. Abdominal: Soft. Bowel sounds are normal. There is no tenderness. Genitourinary: Genitourinary Comments: No CVA pain Musculoskeletal: Normal range of motion. Lymphadenopathy: She has no cervical adenopathy. Neurological: She is alert and oriented to person, place, and time. She has normal reflexes. Skin: Skin is warm and dry. Psychiatric: She has a normal mood and affect. Results for orders placed or performed in visit on 06/30/19 POCT URINE DIPSTICK, CLINITEK Result Value Ref Range Color, UA Yellow Yellow Clarity, UA Slightly Cloudy (A) Clear Glucose, UA Negative Negative mg/dL Bilirubin, UA Negative Negative Ketones, UA Negative Negative mg/dL Specific [place], Urine 1.020 1.001 - 1.035 Blood, UA Negative Negative pH, UA 7.0 <=8 Protein, UA Negative Negative mg/dL Urobilinogen, UA 0.2 0.2 - 1.0 EU/dL Nitrite, UA Negative Negative Leuk Esterase Negative Negative Tech ID [id number] HN LAB COMMENT (CLINITEK, UR) Test performed at [facility] Assessment: Breast cancer screen: Screening not indicated: no risk factors. Counseling not done. Cervical cancer screen: Screening not indicated: recently screened, not due. Colon cancer screen: Screening colonoscopy not indicated: no risk factors Skin cancer screen: We reviewed the characteristics of concerning skin lesions. Patient does not report any concerning lesions. Gonorrhea/Chlamydia Screen (<24 yr or high risk): Screening indicated: not indicated. Eye care: Last eye exam was more than 3 years ago ago. Counseled. Dental care: Last dental visit was 6 months ago. Counseled. Hearing: patient does not have concerns. Lipid screen: indicated: screening ordered. Counseled. DM screen: indicated: screening ordered. Counseled. HTN screen: BP is normal today. Counseled. Depression symptoms: none EtOH use: reports that she does not drink alcohol.. Counseled. Tobacco use: reports that she has been smoking cigarettes. She has never used smokeless tobacco.. Counseled. Substance abuse: reports that she does not use drugs.. Counseled. Weight: morbidly obese (BMI 40+). Counseled. Exercise: frequently. Counseled. Injury prevention: Seatbelt use: always. Helmet use: always. Gun safety (trigger locks, gun cabinets, separate ammo storage) was discussed. Immunizations: Counseled about: pneumococcal (1 dose >65 yr; or <65 if chronic dz) Immunization History Administered Date(s) Administered ??? HPV Quadrivalent Recombinant Vaccine 02/15/2007, 04/19/2007, 01/14/2008 ??? Historical Hepatitis B Vaccine, Unspecified 1996, 1996, 1996 ??? Influenza Vaccine Quad (AFLURIA) PF 0.5 ml IM (3 yrs+) 01/11/2019 ??? Influenza Vaccine Quad (FLULAVAL/FLUARIX/FLUZONE) PF 0.5 ml IM (6 mos+) 01/31/2018 ??? MMR Vaccine SQ 01/28/1997, 12/10/2000 ? ? Pneumococcal Polysaccharide (PPSV23) Vaccine (PNEUMOVAX-23) =>2YO SQ/IM 06/30/2019 ? ? Tdap Vaccine =>7YO IM 06/20/2018 ??? Varicella (Chickenpox) vaccine (VARIVAX) SQ 02/07/2005, 02/15/2007 Plan: Ann was seen today for annual exam. Diagnoses and all orders for this visit: Encounter for preventive health examination Given info on advanced directive healthcare power of trust and estates attorney Need for 23-polyvalent pneumococcal polysaccharide vaccine - PNEUMOCOCCAL POLYSACCHARIDE (PPSV23) VACCINE (PNEUMOVAX-23) 23-VALENT =>2YO SQ/IM Nephrolithiasis - POCT URINE CLINITEK (DIPSTICK) - DOES NOT REFLEX - POCT URINE DIPSTICK, CLINITEK - POCT CSN BARCODE URINE DIPSTICK Urine is clear today I think she is probably having musculoskeletal pain. Obesity, Class III, BMI 40-49.9 (morbid obesity) ([facility]) - LIPID PROFILE (INCLUDES CHOLESTEROL, TRIGLYCERIDES, HDL, LDL) See after visit summary for options for this and instructions to patient. Consider nutrition counseling which she declines today Diabetes mellitus screening - HEMOGLOBIN A1C Return in about 6 months (around 12/29/2019) for recheck BMI 15. References: USPTF Level A & B Recommendations List USPTF Adult Recommendations USPTF Breast Cancer Screening USPTF Cervical Cancer Screening USPTF Colorectal Cancer Screening CDC Adult Immunizations 2010 CDC 7-18 Years Immunizations 2011 AAFP Clinical Recommendations documented in this encounter Miscellaneous Notes Result QuickNote - Leanne Mccabe MD - 06/30/2019 1045 EST Please call Ann Yen and let them know labs were normal. Call with any questions. documented in this encounter Plan of Treatment Not on filedocumented as of this encounter Procedures Procedure Name Priority Date/Time Associated Diagnosis Comme nts POCT URINE CLINITEK Routine 06/30/2019 11:38 Nephrolithiasis R esults for this (DIPSTICK) - DOES EST procedure are in NOT REFLEX the results section. POCT URINE Routine 06/30/2019 11:38 Nephrolithiasis Results for this DIPSTICK, CLINITEK EST procedure are in the results section. HEMOGLOBIN A1C Routine 06/30/2019 11:29 Diabetes mellitus Resu lts for this EST screening procedure are i n the results section. LIPID PROFILE Routine 06/30/2019 11:29 Obesity, Class III, BMI Results for this (INCLUDES EST 40-49.9 (morbid procedure ar e in CHOLESTEROL, obesity) ([facility]) the resul ts TRIGLYCERIDES, HDL, section. LDL) documented in this encounter Results (ABNORMAL) POCT URINE DIPSTICK, CLINITEK (06/30/2019 11:38 EST) Color, UA Yellow Yellow [facility] Clarity, UA Slightly Cloudy Clear [facility] Glucose, UA Negative Negative mg/dL [facility] Bilirubin, UA Negative Negative [facility] Ketones, UA Negative Negative mg/dL [facility] Specific [place], 1.020 1.001 - 1.035 [facility] Urine [facility] Blood, UA Negative Negative [facility] pH, UA 7.0 <=8 [facility] Protein, UA Negative Negative mg/dL [facility] Urobilinogen, UA 0.2 0.2 - 1.0 EU/dL [facility] Nitrite, UA Negative Negative [facility] Leuk Esterase Negative Negative [facility] sister superior ID [id number] [facility] HN LAB COMMENT Test performed at [facility] (CLINITEK, UR) [facility] LABORATORY Practice SERVICES Specimen Urine - Urine, Clean Catch Performing Organization Address City/State/ZIP Code Phon e Number [facility] [address] [place] [address] SERVICES HEMOGLOBIN A1C (06/30/2019 11:29 EST) Hemoglobin A1c 5.1 <5.7 % [facility] Comment: LABORATORY SERVICES Glycemic Status References: Normal: ??<5.7% Pre-Diabetes: ??5.7% - 6.4% Diagnostic of Diabetes: ??> or = 6.5% (if confirmed) Goals for glycemic control in diabetics (ADA 2017): <7.0% target for non adults with diabetes. <7.5% target for children and adolescents with Type I Diabetes. More or less stringent targets may be appropriate for individual patients. Est Avg Glucose 100 mg/dL [facility] Comment: LABORATORY SERVICES The eAG represents the A1c result expressed as average glucose in mg/dL. Specimen Blood - Venous blood (substance) Performing Organization Address [facility] Phon e Number [facility] [address] [place] [address] SERVICES LIPID PROFILE (INCLUDES CHOLESTEROL, TRIGLYCERIDES, HDL, LDL) (06/30/2019 11:29 EST) Cholesterol 208 See Note [facility] Comment: mg/dL [facility] Acceptable: ?<200 mg/dL SERVICES Borderline High: 200-239 mg/dL High: ?> or = 240 mg/dL HDL 42 See Note [facility] Comment: mg/dL [facility] Low: ? <40 mg/dL SERVICES Normal: ??40-60 mg/dL High: ?>60 mg/dL LDL, Calculated 115 See Note [facility] Comment: mg/dL [facility] Optimal: ? <100 mg/dL SERVICES Near Optimal: ?100-129 mg/dL Borderline High: 130-159 mg/dL High: ?160-189 mg/dL Very High: ? > or = 190 mg/dL Triglyceride 256 See Note [facility] Comment: mg/dL [facility] Normal: ? <150 mg/dL SERVICE S Borderline High: ??150 - 199 mg/dL High: ? 200 - 499 mg/dL Very High: ?> or = 500 mg/dL Chol/HDL Ratio 5.0 See Note [facility] Comment: [facility] SERVICES No reference range has been established for CHOL/HDL r atio. Non HDL Cholesterol 166 See Note [facility] Comment: mg/dL [facility] Desirable: ?<130 mg/dL SERVICES Borderline High: ??130-159 mg/dL High: ? 160-189 mg/dL Very High: ?> or = 190 mg/dL Specimen Blood - Venous blood (substance) Narrative [facility] - 06/30/2019 18:26 EST 3 Performing Organization Address City/State/ZIP Code Phon e Number [facility] [address] [place] [address] SERVICES documented in this encounter Visit Diagnoses Diagnosis Encounter for preventive health examinat ion - Primary Routine general medical examination at a health care facility Need for 23-polyvalent pneumococcal poly saccharide vaccine Need for prophylactic vaccination agains t streptococcus pneumoniae (pneumococcus) Nephrolithiasis Calculus of kidney Obesity, Class III, BMI 40-49.9 (morbid obesity) (HCC) Morbid obesity Diabetes mellitus screening Screening for diabetes mellitus Tobacco use disorder documented in this encounter Discontinued Medications Medication Sig Discontinue Reason Start Date End Date escitalopram oxalate Take 1 Tab by Therapy completed 12/11/2018 0 06/30/2019 (LEXAPRO) 10 mg mouth daily. tabletIndications: Anxiety and depression documented as of this encounter Orders Immunization/Injection Count Last Ordered Date First O rdered Date PNEUMOCOCCAL POLYSACCHARIDE (PPSV23) 1 06/30/2019 VACCINE (PNEUMOVAX-23) 23-VALENT =>2YO SQ/IM documented in this encounter Care Teams Mis Specialist Relationship Specialty Start Date End Date Hi Cadena MD PCP - General 05/20/18 documented as of this encounter
--- OUTSIDE RECORDS SUMMARY | 2021-11-14 11:59 | XMS_ITS | Encounter Summary ---
:1995 Author Organization [facility] Address [address] [place] [address] Care Team Providers Name Role Phone Hi Cadena MD Primary Care Provider Reason for Visit Reason Onset Date Comments Appointment Related 03/11/2021 Encounter Details Date Type Department Care Team Description 03/11/2021 Telephone [facility] Cnl, Eeg Appointme nt Related Neurophysiology - Main Schedule, [facility] [address] [place] [address] Social History Tobacco Use Types [...] this encounter Miscellaneous Notes Telephone Encounter - Rupinder Blackman MA - 03/11/2021 1500 EDT Tried to call Ann to schedule a STANDARD EEG , no mailbox set up to leave a message . If patient calls back ,please schedule from referral documented in this encounter Plan of Treatment Not on filedocumented as of this encounter Visit Diagnoses Not on filedocumented in this encounter Care Teams Senior Environmental Practice Leader Relationship Specialty Start Date End Date Hi Cadena MD PCP - General 05/20/18 documented as of this encounter
--- OUTSIDE RECORDS SUMMARY | 2021-11-14 11:59 | XMS_ITS | Encounter Summary ---
:1995 Author Organization [facility] Address [address] [place] [address] Care Team Providers Name Role Phone Hi Cadena MD Primary Care Provider Reason for Visit Reason Comments Ear Problem c/o left ear pain x7 days - sore throat x3 days. Patient is 37 weeks Encounter Details Date Type Department Care Team Description 08/20/2018 Office Visit [facility] Karmen Soto Sore t hroat (Primary Family Medicine - MANAGER [facility]ION D[facility]) [address] [phone] Social History Tobacco Use Types Packs/Day Years [...] Sign Reading Time Taken Comments Blood Pressure 138/70 08/20/2018 0956 EDT Pulse 72 08/20/2018 0956 EDT Temperature 37.3 ??C (99.2 ??F) 08/20/2018 0956 EDT Respiratory Rate 20 08/20/2018 0956 EDT Oxygen Saturation - - Inhaled Oxygen Concentration - - Weight 144.2 kg (318 lb) 08/20/2018 0956 EDT Height 180.3 cm (5' 11) 08/20/2018 0956 EDT Body Mass Index 44.35 08/20/2018 0956 EDT documented in this encounter Functional Status [...] making decisions? documented as of this encounter Patient Instructions Patient InstructionsMaynornt Karmen Weber 08/20/2018 9:45 EDT Images from the original note were not included. [facility] Patient Instructions Upper Respiratory Infection (Cold): Care Instructions Your Care Instructions An upper respiratory infection, or URI, is an infection of the nose, sinuses, or throat. URIs are spread by coughs, sneezes, and direct contact. The common cold is the most frequent kind of URI. The flu and sinus infections are other kinds of URIs. Almost all URIs are caused by viruses. Antibiotics won't cure them. But you can treat most infections with home care. This may include drinking lots of fluids and taking mfxr-fdz-fjuqcrr pain medicine.You will probably feel better in 4 to 10 days. The doctor has checked you carefully, but problems can develop later. If you notice any problems or new symptoms, get medical treatment right away. Follow-up care is a lópez part of your treatment and safety. Be sure to make and go to all appointments, and call your doctor if you are having problems. It's also a good idea to know your test results and keep a list of the medicines you take. How can you care for yourself at home? ?? To prevent dehydration, drink plenty of fluids, enough so that your urine is light yellow or clear like water. Choose water and other caffeine-free clear liquids until you feel better. If you have kidney, heart, or liver disease and have to limit fluids, talk with your doctor before you increase the amount of fluids you drink. ?? Take an vohx-geg-qpjzwju pain medicine, such as acetaminophen (Tylenol), ibuprofen (Advil, Motrin), or naproxen (Aleve). Read and follow all instructions on the label. ?? Before you use cough and cold medicines, check the label. These medicines may not be safe for young children or for people with certain health problems. ?? Be careful when taking zhym-zqn-aftbtmf cold or flu medicines and Tylenol at the same time. Many of these medicines have acetaminophen, which is Tylenol. Read the labels to make sure that you are not taking more than the recommended dose. Too much acetaminophen (Tylenol) can be harmful. ?? Get plenty of rest. ?? Do not smoke or allow others to smoke around you. If you need help quitting, talk to your doctor about stop-smoking programs and medicines. These can increase your chances of quitting for good. When should you call for help? Call 911 anytime you think you may need emergency care. For example, call if: ? You have severe trouble breathing. ??Call your doctor now or seek immediate medical care if: ? You seem to be getting much sicker. ? You have new or worse trouble breathing. ? You have a new or higher fever. ? You have a new rash. ??Watch closely for changes in your health, and be sure to contact your doctor if: ? You have a new symptom, such as a sore throat, an earache, or sinus pain. ? You cough more deeply or more often, especially if you notice more mucus or a change in the color of your mucus. ? You do not get better as expected. Where can you learn more? Go to [email or web address].net/[facility] or log into your [employer] account at [email or web address]. Enter K520 in the search box to learn more about Upper Respiratory Infection (Cold): Care Instructions. Current as of: April 11, 2017 Content Version: 11.8 ?? [id number] [employer]. Care instructions adapted under license by [facility] If you have questions about a medical condition or this instruction, always ask your healthcare professional. [employer] disclaims any warranty or liability for your use of this information. documented in this encounter Progress Notes Lizzeth Dutta LPN - 08/20/2018 0934 EDT Negative throat culture for strep .LIZZETH DUTTA LPN unt Karmen Weber - 08/20/2018 0945 EDT Subjective: Patient ID: Ann Yen is an 23 y.o. female. Chief Complaint Patient presents with ??? Ear Problem c/o left ear pain x7 days - sore throat x3 days. Patient is 37 weeks C/o ear pain for 7 days, sore throat for past 3 days and some mild URI symptoms. One of her roommates had strep. She is 37 wks , due first week of September. Goes to [facility] in [place]. Trying to drink more fluids. Otherwise feels well. Non-smoker, no hx of asthma. Mood is good today. Patient Active Problem List Diagnosis ??? Anxiety and depression ??? Supervision of normal ??? BMI 39.0-39.9,adult ??? Nephrolithiasis ??? History of resection and anastomosis of trachea ??? Acquired monosaccharide malabsorption ??? Breech presentation ??? Group B Streptococcus carrier, +RV culture, currently Past Medical History: Diagnosis Date ??? Anxiety and depression was formerly on meds, stopped july 2017, cannot remember med names, will find out. interested in seeing Michelle in 2nd or 3rd tri or PRN ??? Kidney stones 2017 expectant mgmt, only 1 UTI in her lifetime ??? Supervision of normal Current Outpatient Medications on File Prior to Visit Medication Sig Dispense Refill ??? acetaminophen (TYLENOL) 325 mg tablet Take 650 mg by mouth every 4 hours as needed for Pain (shoulder pain). ??? ascorbic acid, vitamin C, (VITAMIN C) 250 mg tablet Take 250 mg by mouth daily. ??? aspirin chewable 81 mg tablet Take 81 mg by mouth daily. ??? doxylamine-pyridoxine, vit B6, 10-10 mg tablet Take 2 Tabs by mouth at bedtime. (Patient not taking: Reported on 07/08/2018) 30 Tab 1 ??? magnesium oxide (MAG-OX) 400 mg (241.3 mg magnesium) tablet Take 400 mg by mouth daily. ??? vit calc,iron,folic ( #2 ORAL) Take by mouth. ??? ranitidine (ZANTAC) 150 mg tablet Take [...] past hx of mj use, not during Review of Systems Constitutional: Negative for chills and fever. HENT: Positive for congestion, ear discharge and sore throat. Respiratory: Negative. Cardiovascular: Negative. Gastrointestinal: Negative. Genitourinary: Negative. Skin: Negative. Negative for rash. - See HPI Objective: BP 138/70 (BP Cuff Location: Right arm, Patient Position: Sitting, BP Cuff Sizes: Adult, large) Pulse 72 Temp 37.3 ??C (99.2 ??F) (Tympanic) Resp 20 Ht 180.3 cm (71) Wt (!) 144.2 kg (318 lb) LMP 11/20/2017 (Exact Date) BMI 44.35 kg/m?? Physical Exam Constitutional: She is oriented to person, place, and time. She appears well- nourished. No distress. HENT: Right Ear: Tympanic membrane normal. Throat red, slight swelling, no exudate Eyes: Conjunctivae are normal. Pulmonary/Chest: Effort normal and breath sounds normal. Lymphadenopathy: She has no cervical adenopathy. Neurological: She is alert and oriented to person, place, and time. Psychiatric: She has a normal mood and affect. Her behavior is normal. Judgment and thought content normal. Assessment/plan: Ann was seen today for ear problem. Diagnoses and all orders for this visit: URI - symptomatic care Sore throat - POCT RAPID STREP SCREEN - neg Continue current meds, treatment plan Healthy eating, regular exercise Healthy & safe choices F/u prn Patient Education Topic: above Method: Verbal Taught to: Patient Barriers: None Outcomes: independent documented in this encounter Plan of Treatment Not on filedocumented as of this encounter Procedures Procedure Name Priority Date/Time Associated Diagnosis Comme nts POCT RAPID STREP Routine 08/20/2018 Sore throat Results for this SCREEN procedure are i n the results section . documented in this encounter Results POCT RAPID STREP SCREEN (08/20/2018) Pathologist Sig nature Rapid Strep Test, POC Negative Negative POINT OF CARE [facility] Background Clear? Yes [facility] Control Line Present Yes POINT [facility] C[facility] Rgt A + Rgt B= Yellow: Yes POINT OF C[facility] Culture Sent to Lab? No POINT OF CARE [facility] Specimen Other (qualifier value) Performing Organization Address City/State/ZIP Code Phon e Number [facility] POINT OF CARE [facility] documented in this encounter Visit Diagnoses Diagnosis Sore throat - Primary Acute pharyngitis documented in this encounter Discontinued Medications Medication Sig Discontinue Reason Start Date End Date doxylamine-pyridoxine, Take 2 Tabs by Patient Stopped Taking 201708/20/2018 vit B6, 10-10 mg tablet mouth at bedtime. documented as of this encounter Care Teams Cosmetology Teacher Relationship Specialty Start Date End Date Hi Cadena MD PCP - General 05/20/18 documented as of this encounter
--- OUTSIDE RECORDS SUMMARY | 2021-11-14 11:59 | XMS_ITS | Encounter Summary ---
:1995 Author Organization [facility] Address [address] [place] [address] Care Team Providers Name Role Phone Hi Cadena MD Primary Care Provider Encounter Details Date Type Department Care Team Description 08/23/2018 Documentation Visit [facility] Ruddy Crow, Women's Services - [address] [address] [address], [place] [phone] (Wo rk) Social History Tobacco Use Types [...] documented as of this encounter Progress Notes Autumn Rodrigez - 08/23/2018 1527 EDT Received booking sheet from Aleisha Esqueda from [facility]. Booked [id number], [id number] on 09/05/[address] Crow # - [id number] Insurance is [place] of [place] Medicaid secondary. Prior auth is needed Prior Auth : Dates valid : Spoke to : documented in this encounter Plan of Treatment Not on filedocumented as of this encounter Visit Diagnoses Not on filedocumented in this encounter Care Teams Stamping Mill Tender Relationship Specialty Start Date End Date Hi Cadena MD PCP - General 05/20/18 documented as of this encounter
--- OUTSIDE RECORDS SUMMARY | 2021-11-14 11:59 | XMS_ITS | Encounter Summary ---
:1995 Author Organization [facility] Address [address] [place] [address] Care Team Providers Name Role Phone Hi Cadena MD Primary Care Provider Reason for Visit Reason Comments Routine Visit Encounter Details Date Type Department Care Team Description 09/03/2018 Routine [facility] Maryjo Noyola, [place]: 39w0d Nurse Midwifery Program [employer] OFFICER [facility] [address] [place], [address] [facility], [place] [id number] [place] [address] [phone] (Wo rk) Social History Tobacco Use [...] Sign Reading Time Taken Comments Blood Pressure 144/78 09/03/2018 1447 EDT Pulse - - Temperature - - Respiratory Rate - - Oxygen Saturation - - Inhaled Oxygen Concentration - - Weight 145.2 kg (320 lb) 09/03/2018 1447 EDT Height - - Body Mass Index 44.63 08/28/2018 0733 EDT documented in this encounter [...] decisions? documented as of this encounter Discharge Disposition Disposition Code Departure Means Destination Auto Discharge documented in this encounter Progress Notes Maryjo Noyola CNM - 09/03/2018 1445 EDT S: Ann Yen is here today for a BP check at 39+0 wks. She was seen on L+D on 08/30 for pre-E workup after having a BP of 150/92 in the office. L+D BPs mild range with normal serum labs except for elevated fibrinogen at 386. Subsequent 24 hour urine result was elevated at 333. Denies bleeding, loss of fluid or painful contractions. + FM. Pt denies any headache, scotomata, epigastric pain, unusual swelling. Feeling ready to be done with this . We disc her dx of pre-E without severefeatures based on BPs >4 hrs apart and 24 hr urine result..Disc reasons for recommendation of IOLat this point, emphasizing pre-E can escalate quickly. Pt accepting of IOL. O: Vitals: BP: (!) 144/78 Weight : (!) 145.2 kg (320 lb) Heart Rate: NST Movement: Present Presentation: Vertex Dilation: 1 Effacement (%): 30 Station: -3 2+ iLLE swelling bilat 24 hr urine 333 Lab Results Component Value Date BUN 8 (L) 08/30/2018 CREATININE 0.47 (L) 08/30/2018 Lab Results Component Value Date WBC 11.80 08/30/2018 HGB 11.7 08/30/2018 HCT 35.0 08/30/2018 MCV 91 08/30/2018 PLT 278 08/30/2018 Lab Results Component Value Date ALT 20 08/30/2018 AST 16 08/30/2018 URICACID 4.9 08/30/2018 FIBRINOGEN 386 (H) 08/30/2018 LDH 327 08/30/2018 No results for input(s): SPECGRAV, COLOR, CLARITYU, GLUCOSEU, KETONES, PROTEINUA, BLOODU, NITRITE, LEUKESTER, WBCU, RBCU in the last 72 hours. Incorrect component name entered: ISAAC, BILIRUBINU, UROBILINOGENU, SQUAMS NST: reactive US: VTX, MAGGY 14 A: 23 y.o. at 39w0d IUP Pre-E without SF at term Rh pos/GBS pos Variable position in third tri-VTX today via US Baby currently VTX, fairly high in pelvis P: Enc squats tonight/upright position to bring baby down C/S was originally booked for 09/05 due to breech presentation, message sent to Aleisha Esqueda RN toplease cancel Sched for IOL tmw. Knows to call [facility] to coordinate if she hasn't heard from L+D by 10AM-disc potential methods for IOL and that time frame very unpredictable for primip, may be long lead up to active labor Knows pre-E warning signs/term precautions and WTC before tmrw Will need pre-E labs upon admission Osman Schuler CNM, currently director of slot operations and aware of plan documented in this encounter Plan of Treatment Not on filedocumented as of this encounter Visit Diagnoses Diagnosis Encounter for supervision of normal firs t in third trimester - Primary Supervision of normal first documented in this encounter Care Teams Assistant Tennis Professional Relationship Specialty Start Date End Date Hi Cadena MD PCP - General 05/20/18 documented as of this encounter
--- OUTSIDE RECORDS SUMMARY | 2021-11-14 11:59 | XMS_ITS | Encounter Summary ---
:1995 Author Organization [facility] Address [address] [place] [address] Care Team Providers Name Role Phone Hi Cadena MD Primary Care Provider Reason for Visit Reason Onset Date Comments Depression 11/11/2018 Encounter Details Date Type Department Care Team Description 11/11/2018 Telephone [facility] Family Hi Abel MD Depression [address] [phone] (Wo rk) Social History Tobacco Use Types [...] this encounter Miscellaneous Notes Telephone Encounter - Ebonie Hutton - 11/12/2018 1000 EDT Outgoing call to pt to see how she is doing today Left message for pt to return call 10:33 Incoming call from patient She is doing okay today, a little better than yesterday Agrees it would be best to wait and discuss medications tomorrow at her office visit She feels fine to wait until then to be seen and talk about medications She has no other questions/concerns at this time elephone Encounter - Hi Cadena MD - 11/11/2018 1103 EDT If she is would consider sertraline but I think if she is ok we could wait till Sunday. elephone Encounter - Ebonie Hutton - 11/11/2018 0855 EDT Spoke to metal control coordinator who is at ER with patient Pt went to ER with sx of depression since of her baby Saw that pt had some symptoms of anxiety and isolation documented in chart Pt does not want to go inpatient, is not suicidal or homicidal toward baby Would like to start a medication at this time Was on lexapro in the past but didn't feel like it helped Spoke to PCP about this on 07/08/18 at [facility] but stated that her symptoms were okay at that point She was hoping her sx would improve after of baby, but has told crisis they are actually worse Geni will do referral for counseling and for psychiatry Also wants to schedule pt with PCP to discuss medication options Advised that first available appt with PCP is 11/13/18, and crisis thinks pt will be safe at home with boyfriend until then Scheduled pt for this time slot Message shared with PCP for consideration of any intervention prior to that visit elephone Encounter - Elvira Emery - 11/11/2018 0852 EDT Requesting script and counseling. documented in this encounter Plan of Treatment Not on filedocumented as of this encounter Visit Diagnoses Not on filedocumented in this encounter Additional Health Concerns Infection Onset Date Last Indicated Resolved Time R/O COVID-19 11/14/2019 11/14/2019 11/19/2019 22:18 EDT documented as of this encounter Care Teams Counterintelligence Analyst Relationship Specialty Start Date End Date Hi Cadena MD PCP - General 05/20/18 documented as of this encounter
--- OUTSIDE RECORDS SUMMARY | 2021-11-14 11:59 | XMS_ITS | Encounter Summary ---
:[address] [facility] Address [address] [place] [address] Care Team Providers Name Role Phone Hi Cadena MD Primary Care Provider Reason for Visit Reason Onset Date Comments Appointment Related 11/19/2019 Encounter Details Date Type Department Care Team Description 11/19/2019 Telephone [facility] Hi Cadena MD Appointment Related Family Medicine - [address] [place], [place] [address] [facility] [phone] [place], [place] [id number] [phone] Social History Tobacco Use Types Packs/Day Years [...] this encounter Miscellaneous Notes Telephone Encounter - Puja Salas - 11/19/2019 1044 EDT LM FOR PT RE 12/25 APPT, OFFERED VIDEO OR TELEPHONE VISIT Please make schedule change when pt calls back documented in this encounter Plan of Treatment Not on filedocumented as of this encounter Visit Diagnoses Not on filedocumented in this encounter Additional Health Concerns Infection Onset Date Last Indicated Resolved Time R/O COVID-19 11/14/2019 11/14/2019 11/19/2019 22:18 EDT documented as of this encounter Care Teams Senior Planner Relationship Specialty Start Date End Date Hi Cadena MD PCP - General 05/20/18 documented as of this encounter
--- OUTSIDE RECORDS SUMMARY | 2021-11-14 11:59 | XMS_ITS | Encounter Summary ---
:1995 Author Organization [facility] Address [address] [place] [address] Care Team Providers Name Role Phone Hi Cadena MD Primary Care Provider Reason for Visit Reason Comments Post- Care Consult (Routine) - Specialty Report Received Specialty Diagnoses / Procedures Referred By Contact Refer red To Contact Obstetrics & Diagnoses Supervision of normal first , antepartum Anxiety and depression Jocelyne Campos, [facility]necology AUTOMOTIVE PROFESSIONAL CNM Obgyn [address] [facility], [address], Level 4 [facility], [address] Phone: [phone] Referral ID Status Reason Start Expiration Visits Visits Date Date Requested Authorized [id number] Specialty Specialty 09/07/2018 1 1 Report Services Received Required Encounter Details Date Type Department Care Team Description 09/19/2018 Office Visit [facility] Kurtis Jimenez Postpa rtum care and Nurse Midwifery CHRISTINA Arechiga [place] examination (Primary Program - [facility] [address] [facility], [address], [address] 4 [facility], [address] [phone] (Wo rk) Social History Tobacco Use [...] Sign Reading Time Taken Comments Blood Pressure 124/70 09/19/2018 1333 EDT Pulse - - Temperature - - Respiratory Rate - - Oxygen Saturation - - Inhaled Oxygen Concentration - - Weight 132.9 kg (293 lb) 09/19/2018 1333 EDT Height - - Body Mass Index 40.87 09/04/2018 0828 EDT documented in this encounter [...] documented as of this encounter Progress Notes Kurtis Jimenez Cnm, CNM - 09/19/2018 1330 EDT Ann Yen is a 23 y.o. female who presents 2 week(s) post following a spontaneous vaginal delivery The delivery was at 39w2d gestational weeks. IOL for PEC which developed into severe features during the course of her labor and she was given Magnesium Sulfate and multiple ant ihypertensive meds. For induction she required Misoprostol, CRB and pitocin and ultimately had a of female infant on 09/05/18. Infant with Apgars 8 & 9 and wt 3356 gms. Immediate bleeding was brisk with uterotonic meds given/EBL 600 cc. Repair of bilateral deep/bleeding vaginal lacerations and labial lacs repaired. She is now feeling good! Sutures not painful. Takes Tylenol 2X/day mainly for residual back discomfort post epidural. Sleep is adequate and she's getting good help from partner Carlos and her mom. [place] baby, trying not to worry too much. Decided to change to formula as was worried wasn't making enough milk after discharge from hosptial - baby with good wt gain however.Less stress now. Breasts had brief engorgement now fine. Anesthesia: Epidural. course has been uncomplicated Baby's course has been doing well without problems. Baby is feeding formula by bottle. Current Status: Bleeding: thin lochia. Bowel function is normal. Bladder function is normal with no incontinence depression screening: negative. Patient is not sexually active. Contraception method is abstinence and desires Nexplanon.. Returning to work: not discussed, family/social support is good I have fully reviewed the and intrapartum course, delivery events, and above subjective information. Additional provider comments none. Medical History on file. Past Medical History: Diagnosis Date ??? Anxiety and depression was formerly on meds, stopped july 2017, cannot remember med names, will find out. interested in seeing Michelle in 2nd or 3rd tri or PRN ??? Hypertension ??? Kidney stones 2017 expectant mgmt, only 1 UTI in her lifetime ??? Supervision of normal No current outpatient prescriptions on file. Allergies: Allergies Allergen Reactions ??? Adhesive rash ??? Ciprofloxacin Dizziness and vomiting Review of Systems Pertinent items are noted in Subjective/HPI Objective: BP 124/70 Wt (!) 132.9 kg (293 lb) LMP 11/20/2017 (Exact Date) BMI 40.87 kg/m?? Declines need for exam Assessment: 2 week exam post Hx PEC with SF now normotensive Formula feeding Plan: 1. Contraception: Nexplanon info given. Will have placed at 6 wk PPV 2. Discussed recommendation for ASA with future pregnancies. 3. Follow up: 4 weeks documented in this encounter Plan of Treatment Not on filedocumented as of this encounter Visit Diagnoses Diagnosis care and examination - Primar y Routine follow-up documented in this encounter Care Teams Hadoop Analyst Relationship Specialty Start Date End Date Hi Cadena MD PCP - General 05/20/18 documented as of this encounter
--- OUTSIDE RECORDS SUMMARY | 2021-11-14 11:59 | XMS_ITS | Encounter Summary ---
:1995 Author Organization [facility] Address [address] [place] [address] Care Team Providers Name Role Phone Hi Cadena MD Primary Care Provider Encounter Details Date Type Department Care Team Description 08/20/2019 Orders Only [facility] InnaJerrod sherman MD [facility] [address] [place] [phone] (Wo rk) Social History Tobacco Use Types [...] Diagnoses Not on filedocumented in this encounter Discontinued Medications Medication Sig Discontinue Reason Start Date End Date ranitidine (ZANTAC) 150 Take 1 tablet by 08/01/2018 08/20/2019 mg tablet mouth 2 times daily. documented as of this encounter Care Teams Sql Programmer Relationship Specialty Start Date End Date Hi Cadena MD PCP - General 05/20/18 documented as of this encounter
--- OUTSIDE RECORDS SUMMARY | 2021-11-14 11:59 | XMS_ITS | Encounter Summary ---
:1995 Author Organization [facility] Address [address] [place] [address] Care Team Providers Name Role Phone Hi Cadena MD Primary Care Provider Reason for Visit Reason Onset Date Comments Appointment Related 09/02/2018 Encounter Details Date Type Department Care Team Description 09/02/[address] [facility] Ruddy Crow, Appointment Related Women's Services - [address] [place] [address] Pavilion, [place] [phone] (Wo rk) Social History Tobacco Use Types [...] making decisions? documented as of this encounter Miscellaneous Notes Telephone Encounter - Autumn Rodrigez - 09/02/2018 1243 EDT Called Danielle MALIK/ROBI @ [phone] for prior auth for a booked for 09/05/18 @ 2:05pm. Spoke to Ciro Dumont Call ref # [id number] No prior auth is necessary documented in this encounter Plan of Treatment Not on filedocumented as of this encounter Visit Diagnoses Not on filedocumented in this encounter Care Teams Dust Mixer Relationship Specialty Start Date End Date Hi Cadena MD PCP - General 05/20/18 documented as of this encounter
--- OUTSIDE RECORDS SUMMARY | 2021-11-14 11:59 | XMS_ITS | Encounter Summary ---
:1995 Author Organization [facility] Address [address] [place] [address] Care Team Providers Name Role Phone Hi Cadena MD Primary Care Provider Encounter Details Date Type Department Care Team Description 04/21/2020 Lab Requisition [facility] Outr Resulting Lab, Pathology & Laboratory Provider [facility] [address] [place] [address] Social History Tobacco Use Types [...] Priority Date/Time Associated Comments Diagnosis CHLAMYDIA/N. Routine 04/21/2020 15:20 Results for this GONORRHOEAE AMPLIFIED EST proced ure are in RNA the results section. documented in this encounter Results (ABNORMAL) CHLAMYDIA/N. GONORRHOEAE AMPLIFIED RNA (04/21/2020 15:20 EST) Pathologist Sig nature Gonococcus Result Positive (A) Negative [facility] Chlamydia Result Negative Negative [facility] Specimen Urine - Urine, Dirty Urine Narrative [facility] - 04/22/2020 15:06 EST A first catch urine specimen is acceptab le for detection of Gonorrhea and Chlamydia, but might detect up to 10% fewer infecti ons when compared with vaginal and endocervical swab samples. Performing Organization Address City/State/ZIP Code Phon e Number [facility] [address] [place] [address] SERVICES documented in this encounter Visit Diagnoses Not on filedocumented in this encounter Care Teams Billing Department Supervisor Relationship Specialty Start Date End Date Hi Cadena MD PCP - General 05/20/18 documented as of this encounter
--- OUTSIDE RECORDS SUMMARY | 2021-11-14 11:59 | XMS_ITS | Encounter Summary ---
:1995 Author Organization [facility] Address [address] [place] [address] Care Team Providers Name Role Phone Hi Cadena MD Primary Care Provider Reason for Visit Reason Comments Depression Encounter Details Date Type Department Care Team Description 11/13/2018 Office Visit [facility] Hi Cadena, Anxie ty and depression (Primary Dx); Family Medicine - Panic attack; [address] Obesity, Class III, BMI 40-49.9 (morbid obesity) ([facility]) [address] [place] [phone] Social History Tobacco Use Types Packs/Day Years Used Date Current Some Day Smoker Cigarettes Smokeless Tobacco: Never Used Tobacco Cessation: Ready to Quit: No; Co unseling Given: Yes Comments: quit with , smokes [...] Sign Reading Time Taken Comments Blood Pressure 110/60 11/13/2018 1605 EDT Pulse 72 11/13/2018 1605 EDT Temperature - - Respiratory Rate - - Oxygen Saturation - - Inhaled Oxygen Concentration - - Weight 136.1 kg (300 lb) 11/13/2018 1605 EDT Height 182.9 cm (6' 0.01) 11/13/2018 1605 EDT Body Mass Index 40.68 11/13/2018 1605 EDT documented in this encounter Functional Status [...] or older) documented as of this encounter Ordered Prescriptions Prescription Sig Dispensed Refills Start Date End Date hydrOXYzine (ATARAX) 25 mg Take 1 Tab by mouth 30 Tab 2 11/13/2018 tablet 3 times daily as needed for Anxiety. escitalopram oxalate Take 1 Tab by mouth 30 Tab 2 201812/11/2018 (LEXAPRO) 10 mg tablet daily. documented in this encounter Discharge Disposition Disposition Code Departure Means Destination Auto Discharge documented in this encounter Progress Notes Hi Cadena MD - 11/13/2018 1600 EDT Subjective: Chief Complaint Patient presents with ??? Depression HPI Pleasant 23-year-old white female seen today to follow-up ongoing depression which occurred after delivery of her baby. She has a significant past history of depression and what sounds like panic disorder in her prior doctor's treatment in the [facility] area. At that time it appears she was initially treated with duloxetine and then switched to Lexapro and hydroxyzine for about a year. She came off all her medications when she got . 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 She delivered about 2 months ago. She seemed to be doing well when I saw her with the baby and her . Her went back to work after about 2 weeks and works at night and sleeps during the day so she is essentially for the most part a single parent. She is had been having increasing depressive symptoms with crying. She has severe panic attacks that can last up to an hour. She says she feelslike she cannot catch her breath at those times. She is on no medication for this. [facility] and has [facility] for [facility]. She denies any suicidal thinking or suicidal ideation. She left her child with her parents for a couple of nights to be with her alone and actually could not do well with that because she kept thinking about her baby. She has not lost interest in caring for her child. She is obviously stressed over her situation with her working. She does not do a lot of things I cannot get much out of her in terms of losing interest although she did enjoy doing work when she was doing it. Her appetite is down to some extent. Patient Active Problem List Diagnosis ??? Anxiety [...] 4 hours as needed for Pain. ??? ibuprofen (IBU-200) 200 mg tablet Take [...] during ROS - See HPI Objective: BP 110/60 (BP Cuff Location: Right arm, Patient Position: Sitting, BP Cuff Sizes: Adult, large) Pulse 72 Ht 182.9 cm (72.01) Wt (!) 136.1 kg (300 lb) BMI 40.68 kg/m?? Physical Exam Assessment/Plan Ann was seen today for depression. Diagnoses and all orders for this visit: Anxiety and depression Panic attack Other orders - escitalopram oxalate (LEXAPRO) 10 mg tablet; Take 1 Tab by mouth daily. - hydrOXYzine (ATARAX) 25 mg tablet; Take 1 Tab by mouth 3 times daily as needed for Anxiety. Overall I think this patient is not suffering from severe depression but is suffering from situational anxiety and depression. We agreed that since she did well on Lexapro previously for a good year with that we would restart it and I warned her about potential side effects. I have also given her some hydroxyzine again to use for the panic episodes. She is not currently breast- feeding so there are no issues with these drugs for her. I plan to recheck with her in about a month. Hopefully she will be into counseling at that time. Return in about 1 month (around 12/14/2018) for depression 15. documented in this encounter Plan of Treatment Not on filedocumented as of this encounter Visit Diagnoses Diagnosis Anxiety and depression - Primary Dysthymic disorder Panic attack Panic disorder without agoraphobia Obesity, Class III, BMI 40-49.9 (morbid obesity) (HCC) Morbid obesity documented in this encounter Discontinued Medications Medication Sig Discontinue Reason Start Date End Date vit Take by mouth. Therapy completed 11/14/19 calc,iron,folic ( #2 ORAL) docusate sodium (COLACE) Take 1 capsule by Therapy completed 201811/13/2018 100 mg capsule mouth 2 times daily as needed for Constipation. documented as of this encounter Care Teams Lan Engineer Relationship Specialty Start Date End Date Hi Cadena MD PCP - General 05/20/18 documented as of this encounter
--- OUTSIDE RECORDS SUMMARY | 2021-11-14 11:59 | XMS_ITS | Encounter Summary ---
:1995 Author Organization [facility] Address [address] [place] [address] Care Team Providers Name Role Phone Hi Cadena MD Primary Care Provider Reason for Visit Reason Comments Routine Visit Encounter Details Date Type Department Care Team Description 08/23/[address] [facility] [place]: 37w3d Nurse Midwifery Program M, WASHING MACHINE OPERATOR CN - [place] [address] [place] [address], [address] [place], [address] [facility], [place] [id number] [place] [address] [phone] (Wo rk) Social History Tobacco Use [...] Sign Reading Time Taken Comments Blood Pressure 138/72 08/23/2018 0847 EDT Pulse - - Temperature - - Respiratory Rate - - Oxygen Saturation - - Inhaled Oxygen Concentration - - Weight 144.7 kg (319 lb) 08/23/2018 0847 EDT Height - - Body Mass Index 44.49 08/20/2018 0956 EDT documented in this encounter [...] Discharge documented in this encounter Progress Notes Mary Schuler Cnm, CNM - 08/23/2018 0845 EDT S: Ann Kirill Yen is here today for a visit at 37w3d with Carlos. Feels baby is still breech and sure she would not want to have a version. No headache, visual changes or RUQ pain Denies bleeding, loss of fluid or painful contractions. + FM. O: Vitals: BP: 138/72 Weight : (!) 144.7 kg (319 lb) Fundal Height (cm): 39 cm Heart Rate: 145 Movement: Present Presentation: Breech A: 23 y.o. at 37w3d IUP S=D Fetus rubén breech per 36w u/s, declines version GBS pos BMI 38, TWG 36# Anxiety/depression P: booked 09/05 @ [address] Dr[address] Salter, will try for pre-op visit with her and if unavailable plan delivery planning talk next week with Dr. Kilpatrick. Also ordered limited u/s with next visit to confirm presentation. S/sx PEC reviewed, watch BP Follow up in 1 wks documented in this encounter Plan of Treatment Not on filedocumented as of this encounter Visit Diagnoses Diagnosis Encounter for supervision of normal firs t in third trimester - Primary Supervision of normal first documented in this encounter Care Teams Bleaching Machine Operator Relationship Specialty Start Date End Date Hi Cadena MD PCP - General 05/20/18 documented as of this encounter
--- OUTSIDE RECORDS SUMMARY | 2021-11-14 11:59 | XMS_ITS | Encounter Summary ---
:1995 Author Organization [facility] Address [address] [place] [address] Care Team Providers Name Role Phone Hi Cadena MD Primary Care Provider Reason for Visit Reason Onset Date Comments Appointment Related 03/17/2021 Encounter Details Date Type Department Care Team Description 03/17/2021 Telephone [facility] C[facility], Eeg Appointme nt Related Neurophysiology - Main Schedule, [place] [address] [place] [address] Social History Tobacco Use Types [...] Telephone Encounter - Rupinder Blackman MA - 03/17/2021 1034 EST Called and spoke to Nan, set up STANDARD EEG FOR 03/23 @ 1000. Gave directions to clinic , patient declined taking a ph # . Scheduled from referral documented in this encounter Plan of Treatment Not on filedocumented as of this encounter Visit Diagnoses Not on filedocumented in this encounter Care Teams Anesthesiologist/Physician Relationship Specialty Start Date End Date Hi Cadena MD PCP - General 05/20/18 documented as of this encounter
--- OUTSIDE RECORDS SUMMARY | 2021-11-14 11:59 | XMS_ITS | Encounter Summary ---
:1995 Author Organization [facility] Address [address] [place] [address] Care Team Providers Name Role Phone Hi Sanchez MD Primary Care Provider Reason for Visit Reason Onset Date Comments Medications Refill 02/26/2020 Encounter Details Date Type Department Care Team Description 02/26/2020 Telephone [facility] Hi Sanchez MD Medications Refill [id number] [place], [place] [address] [facility] [address] [place], [place] [id number] [phone] Social History Tobacco Use Types Packs/Day Years [...] (LEXAPRO) 20 mg tablet daily. NEEDS APPT documented in this encounter Miscellaneous Notes Telephone Encounter - Elvira Emery - 04/09/2020 1508 EST Left message for patient to call back and schedule an appointment. See previous notes. elephone Encounter - Cain Valles RN - 02/27/2020 0909 EDT Pt is due for f/u mood, no showed 12/25. Please help her arrange. Requested Prescriptions Signed Prescriptions Disp Refills ??? escitalopram oxalate (LEXAPRO) 20 mg tablet 90 Tab 0 Sig: Take 1 Tab by mouth daily. NEEDS APPT Authorizing Provider: HI SANCHEZ Ordering User: CAIN VALLES elephone Encounter - Cain Valles RN - 02/27/2020 0908 EDT From: Ann Yen To: Office of Hi Sanchez MD Sent: 02/26/2020 21:34 EDT Subject: Medication Renewal Request Refills have been requested for the following medications: escitalopram oxalate (LEXAPRO) 20 mg tablet [Hi Sanchez MD] Preferred pharmacy: [id number] - [place], [place] - [address] documented in this encounter Plan of Treatment Not on filedocumented as of this encounter Visit Diagnoses Not on filedocumented in this encounter Discontinued Medications Medication Sig Discontinue Reason Start Date End Date escitalopram oxalate Take 1 Tab by Reorder 12/02/20192019 (LEXAPRO) 20 mg tablet mouth daily. documented as of this encounter Care Teams Web Pressman Relationship Specialty Start Date End Date Hi Sanchez MD PCP - General 05/20/18 documented as of this encounter
--- OUTSIDE RECORDS SUMMARY | 2021-11-14 11:59 | XMS_ITS | Encounter Summary ---
:1995 Author Organization [facility] Address [address] [place] [address] Care Team Providers Name Role Phone Hi Cadena MD Primary Care Provider Encounter Details Date Type Department Care Team Description 11/11/2018 Travel Social History Tobacco Use Types Packs/Day [...] on filedocumented in this encounter Care Teams Science Specialist Relationship Specialty Start Date End Date Hi Cadena MD PCP - General 05/20/18 documented as of this encounter
--- OUTSIDE RECORDS SUMMARY | 2021-11-14 11:59 | XMS_ITS | Encounter Summary ---
:1995 Author Organization [facility] Address [address] [place] [address] Care Team Providers Name Role Phone Hi Cadena MD Primary Care Provider Reason for Visit Reason Onset Date Comments Cough 08/08/2019 coughing up mucus Fever 08/08/2019 low grade Encounter Details Date Type Department Care Team Description 08/08/2019 Telephone [facility] Hi Cadena MD Cough (coughing up Family Medicine - [address] ad mucus); Fever (low [place], [place] grade) [address] [address] [place] [address] [phone] Social History Tobacco Use Types Packs/Day Years [...] this encounter Miscellaneous Notes Telephone Encounter - Doris Valles RN - 08/08/2019 1353 EDT Left message for pt to return call elephone Encounter - Sandy Santacruz - 08/08/2019 0853 EDT Patient was thinking allergies starting Sunday. Patient had a cough and no fever and benadryl seemed to help. Patient is stating last last night took their temp and was 99 and this morning 99.1. documented in this encounter Plan of Treatment Not on filedocumented as of this encounter Visit Diagnoses Not on filedocumented in this encounter Care Teams Warehouse Supervisor Relationship Specialty Start Date End Date Hi Cadena MD PCP - General 05/20/18 documented as of this encounter
--- OUTSIDE RECORDS SUMMARY | 2021-11-14 11:59 | XMS_ITS | Encounter Summary ---
:1995 Author Organization [facility] Address [address] [place] [address] Care Team Providers Name Role Phone Hi Cadena MD Primary Care Provider Reason for Referral Office Procedure (Routine/Next Available) - Closed Specialty Diagnoses / Procedures Referred By Contact Refer red To Contact Neurology Diagnoses Syncope, unspecified syncope type Eugenio Sanchez PA-C Patrick 5 Lab Procedures EEG WITH PROLONGED BEDSIDE VIDEO MONITORING 883 [facility] [address] [place], [place] [id number] Referral ID Status Reason Start Date Expiration Date Visits Requ ested Visits Authorized [id number] Closed 03/02/2021 1 1 Reason for Visit Reason Comments Blood Sugar Problem has fainted 2 times in the l ast 6 weeks. has been an ongoing problem since 13 years old- usually associated with dehydration. the last couple of fainting spells blood sugars have been in the 50's. after most recent epis ode she drank about 8oz of oragne juice and blood sugar went u p to 96. Encounter Details Date Type Department Care Team Description 03/02/2021 Office Visit [facility] Eugenio Sanchez Hyp oglycemia (Primary Dx); Family Medicine - MARIA ELENA Syncope, unspecified syncope type [id number] [place] [address] [phone] Social History Tobacco Use Types Packs/Day Years [...] Sign Reading Time Taken Comments Blood Pressure 116/60 03/02/2021 1001 EDT Pulse 72 03/02/2021 1001 EDT Temperature - - Respiratory Rate - - Oxygen Saturation - - Inhaled Oxygen Concentration - - Weight 119.7 kg (264 lb) 03/02/2021 1001 EDT Height - - Body Mass Index 35.8 06/30/2019 1053 EST documented in this encounter [...] documented as of this encounter Progress Notes Margret Michael MA - 03/02/2021 1015 EDT Venipuncture performed per order PETER Castro in the right arm without incident. 1st attempt2 tiger and 2 purple. MARGRET MICHAEL MA 03/02/2021 10:34 ugenio Nails PA-[facility] - 03/02/2021 1015 EDT Primary Care Office Visit Assessment & Plan Diagnoses and all orders for this visit: Hypoglycemia- r/o metabolic cause of hypoglycemia; discussed eating protein bars if unable to eat meals throughout the day- set an alarm on phone to reminder herself; r/o thyroid disorder and anemai - GLUCOSE, SERUM - INSULIN - C PEPTIDE - BETA HYDROXYBUTYRATE - TSH - COMPLETE BLOOD COUNT Syncope, unspecified syncope type- r/o seizure - EEG WITH PROLONGED BEDSIDE VIDEO MONITORING - PROINSULIN Other orders - etonogestreL (NEXPLANON) 68 mg subdermal implant Return if symptoms worsen or fail to improve. Patient education was direct. Barriers were assessed and addressed as needed. Royce Juarez is a 26 y.o. female presenting with Blood Sugar Problem (has fainted 2 times in the last 6 weeks. has been an ongoing problem since 13 years old- usually associated with dehydration. the last couple of fainting spells blood sugars have been in the 50's. after most recent episode she drank about 8oz of oragne juice and blood sugar went up to 96.) HPI Here to discuss fainting episodes with low blood sugars. Fainting episodes since age 10-11. Initially attributed to dehydration per patient. Reports two episodes over past 6 weeks which is an increase.Some episodes will feel lightheaded prior to fainting, other times feels normal and suddenly faints.Loses consciousness for a few seconds. Single episode of urinary incontinence with prior episode over 3 years ago. 2 months ago fainted at work into coworkers lap during conversation- coworker reportedshaking while unconscious. No known history of seizures. Possible family history of seizures- not sure. Admits to headaches post syncope but no headache prior to fainting. Denies disorientation to place or person after regaining consciousness. Checked blood sugar after two episodes in past two months-blood sugar was 45-50. Admits she doesn't eat during the day- sometimes will have some oatmeal or a granola bar. Works 70 hours per week at [employer]. Data reviewed this visit: problem list/past medical history, current medications and allergies Review of Systems Constitutional: Negative for malaise/fatigue. Neurological: Positive for loss of consciousness and headaches. Negative for dizziness, tingling, tremors, sensory change, speech change, focal weakness and weakness. - See HPI Objective BP 116/60 Pulse 72 Wt (!) 119.7 kg (264 lb) BMI 35.80 kg/m?? Physical Exam Vitals and nursing note reviewed. Constitutional: Appearance: She is well-developed and well-nourished. Eyes: Extraocular Movements: EOM normal. Pupils: Pupils are equal, round, and reactive to light. Neck: Thyroid: No thyromegaly. documented in this encounter Plan of Treatment Scheduled Orders Name Type Priority Associated Diagnoses Order S chedule EEG WITH PROLONGED Neurology Routine Syncope, unspecified E xpected: 03/02/2022 BEDSIDE VIDEO syncope type (Approximate) MONITORING documented as of this encounter Procedures Procedure Name Priority Date/Time Associated Diagnosis Comme nts BETA HYDROXYBUTYRATE Routine 03/02/2021 10:23 Hypoglycemia Res ults for this EDT procedure are i n the results section. C PEPTIDE Routine 03/02/2021 10:23 Hypoglycemia Results for this EDT procedure are i n the results section. INSULIN Routine 03/02/2021 10:23 Hypoglycemia Results for this EDT procedure are i n the results section. COMPLETE BLOOD COUNT Routine 03/02/2021 10:23 Hypoglycemia Res ults for this EDT procedure are i n the results section. TSH Routine 03/02/2021 10:23 Hypoglycemia Results for this EDT procedure are i n the results section. GLUCOSE, SERUM Routine 03/02/2021 10:23 Hypoglycemia Results f or this EDT procedure are i n the results section. documented in this encounter Results COMPLETE BLOOD COUNT (03/02/2021 10:23 EDT) Pathologist Sig nature WBC 9.07 4.00 - 12.40 K/cmm [facility] RBC 4.03 3.86 - 5.04 M/cmm [facility] Hemoglobin 12.6 11.6 - 15.2 gm/dL [facility] HCT 36.7 34.9 - 44.4 % [facility] MCV 91 81 - 98 fl [facility] MCH 31.3 26.7 - 33.3 pg [facility] MCHC 34.3 32.1 - 35.9 gm/dL [facility] RDW-CV 11.9 <14.7 % [facility] RDW-SD 39.6 <50.4 fl [facility] PLT 268 141 - 377 K/cmm [facility] MPV 9.5 9.5 - 12.7 fl [facility] Specimen Blood - Venous blood (substance) Performing Organization Address City/[facility]/ZIP Code Phon e Number [facility] [address] [place] [address] SERVICES TSH (03/02/2021 10:23 EDT) Pathologist Sig nature TSH 0.90 0.47 - 4.68 uIU/mL [facility] Specimen Blood - Venous blood (substance) Narrative [facility] - 03/02/2021 19:29 EDT The results of this assay can be falsely lowered due to the consumption of Biotin. Performing Organization Address City/State/ZIP Code Phon e Number [facility] [address] [place] [address] SERVICES BETA HYDROXYBUTYRATE (03/02/2021 10:23 EDT) Pathologist Sig nature Beta Hydroxybutyrate <0.1 <0.4 mmol/L [facility] Specimen Blood - Venous blood (substance) Performing Organization Address City/[facility]/ZIP Code Phon e Number [facility] [address] [place] [address] SERVICES (ABNORMAL) C PEPTIDE (03/02/2021 10:23 EDT) C-Peptide, S 6.4 (H) 1.1 - 4.4 [facility] Comment: ng/mL LABORATORIES Test Performed by: [facility] [address] [place] [address] Wash Driller: Remi Liu M.D. Ph.D.; CLIA# [id number] Specimen Blood - Venous blood (substance) Performing Organization Address City/[facility]/ZIP Code Phon e Number [facility] [address] [place] [address] (ABNORMAL) INSULIN (03/02/2021 10:23 EDT) Pathologist Sig nature Insulin 35.6 (H) <29.0 uIU/mL [facility] Comment: LABORATORY SERVICES Displayed Reference Range applies to fasting specimens only. Specimen Blood - Venous blood (substance) Performing Organization Address [facility]/ZIP Code Phon e Number [facility] [address] [place] [address] SERVICES (ABNORMAL) GLUCOSE, SERUM (03/02/2021 10:23 EDT) Pathologist Sig nature Glucose 102 (H) 70 - 100 mg/dL [facility]AT ORY SERVICES Specimen Blood - Venous blood (substance) Performing Organization Address [facility]/ZIP [facility] Phon e Number [facility] [address] [place] [address] SERVICES documented in this encounter Visit Diagnoses Diagnosis Hypoglycemia - Primary Hypoglycemia, unspecified Syncope, unspecified syncope type documented in this encounter Historical Medications This list may reflect changes made after this encounter. Medication Sig Dispensed Refills Start Date End Date etonogestreL (NEXPLANON) Insert 68 mg 0 68 mg subdermal implant subdermally continuous IUD. added in this encounter Care Teams Faculty I On Call Medical Assistant Relationship Specialty Start Date End Date Hi Cadena MD PCP - General 05/20/18 documented as of this encounter
--- OUTSIDE RECORDS SUMMARY | 2021-11-14 11:59 | XMS_ITS | Encounter Summary ---
:1995 Author Organization [facility] Address [address] [place] [address] Care Team Providers Name Role Phone Hi Cadena MD Primary Care Provider Reason for Visit Reason Onset Date Comments Patient Information Update 11/20/2019 Encounter Details Date Type Department Care Team Description 11/20/2019 Telephone [facility] Hi Cadena MD Patient Information [facility] - [address] [place] [address] ad Update [place], [place] [address] [facility] [id number] [place], [place] [id number] [phone] Social History Tobacco Use Types Packs/Day Years [...] this encounter Miscellaneous Notes Telephone Encounter - Symone Mckinley RN - 11/20/2019 1125 EDT Return call from Fernanda, confirmed that appointment on 12/01 was not in office, switched appointment to telemedicine visit. Confirmed phone number for patient for this visit. elephone Encounter - Symone Mckinley RN - 11/20/2019 1104 EDT 11/20/19 11:10 Return call to Fernanda ORELLANA) at inpatient psych at [facility] with questions prior ot discharge. She states patient is being discharged on lexapro. Was having a hard time between having a 14 month old with minimal support, financial issues and in a place where she could have become homeless. They have arranged support and resources and feel that she is stable to be discharged. Due to lack of services, no psychiatry follow up. She is going to be set up through [facility] for counseling services. Fernanda said a discharge summary would be sent to office prior to discharge. I called back regarding PCP F/U appointment. Left voicemail asking to call back and confirm patient can do telemedicine visit this date as provider is virtual on 12/01. elephone Encounter - Hi Cadena MD - 11/20/2019 1040 EDT I am confused and have questions: 1. Appointment is listed as in person? 2. Is there follow up with a psychiatrist? Should Dr. Bobo be involved? 3. Where are notes from [facility]? Is there a hand off of paperwork? elephone Encounter - Juve Carrillo - 11/20/2019 0926 EDT Patient is being discharged today at 1pm from inpatient psych [facility]. Patient lives in [place] and can only do a telephone appt. Scheduled for 12-02-2019. documented in this encounter Plan of Treatment Not on filedocumented as of this encounter Visit Diagnoses Not on filedocumented in this encounter Care Teams Employment Appeals Examiner Relationship Specialty Start Date End Date Hi Cadena MD PCP - General 05/20/18 documented as of this encounter
--- OUTSIDE RECORDS SUMMARY | 2021-11-14 11:59 | XMS_ITS | Encounter Summary ---
:1995 Author Organization [facility] Address [address] [place] [address] Care Team Providers Name Role Phone Hi Cadena MD Primary Care Provider Reason for Visit Reason Comments Hospital Discharge Follow Up [facility] for psych Encounter Details Date Type Department Care Team Description 12/02/2019 Telemedicine [facility] Hi Cadena, Marcio martinez episode of recurrent major depressive disorder, without psychotic features (HCC-CMS) (Primary Dx); Family Medicine - Tobacco use disorder [address] [address] [phone] Social History Tobacco Use Types Packs/Day Years [...] 1 Tab by mouth 30 Tab 2 201902/26/2020 (LEXAPRO) 20 mg tablet daily. documented in this encounter Progress Notes Hi Cadena MD - 12/02/2019 1430 EDT Subjective: Chief Complaint Patient presents with ??? Hospital Discharge Follow Up [facility] for psych HPI 24-year-old white female seen today for follow-up from hospitalization at from November 13 through November 19 where she was diagnosed with major depressive disorder, suicidal ideation, cannabis use disorder. Patient apparently has been having marital difficulties for quite some time and is now from her . They were fighting and arguing quite a bit. She became overwhelmed. She developed some suicidal ideation and ask for help. She was admitted to hospital for several days. She also had some shoulder difficulties and was started on some Mobic. She states she is on 10 mg of Lexapro now and is doing fairly well with this medication but has been on 20 mg previously. She occasionally needs to use hydroxyzine. She was also given trazodone that she has not had to use at all. She is currently at her grandmother's house and is also living with her aunt. 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 Her soon-to-be ex- is taking care of the baby at othertimes. She feels comfortable with this. She hopes to get her own place when she has enough money to pay for that. Patient Active Problem List Diagnosis ??? BMI 39.0-39.9,adult ??? Nephrolithiasis ??? Tobacco use disorder ??? Severe episode of recurrent major depressive disorder, without psychotic features ([facility]) Past Medical History: Diagnosis Date ??? Acquired [...] Take 1 Tab by mouth daily. ??? omeprazole (PRILOSEC) 20 mg capsule TAKE 1 CAPSULE BY MOUTH EVERY DAY TO PREVENT HEARTBURN ??? traZODone (DESYREL) 50 mg tablet TAKE 1 TABLET AT BEDTIME NEEDED FOR SLEEP No current facility-administered medications on file prior [...] not during ROS - See HPI Objective: There were no vitals taken for this visit. Physical Exam Assessment/Plan Ann was seen today for hospital discharge follow up. Diagnoses and all orders for this visit: Severe episode of recurrent major depressive disorder, without psychotic features ([facility]) Increase Lexapro to 20 mg. Patient continues with therapist who she is seeing again I believe this week. Follow-up 1 month with this physician. She is not having suicidal ideation at this point. She appears fairly stable. She is somewhat flat in her affect. Tobacco use disorder Probably no interest in quitting at this time. Patient had some trouble with shoulder pain when she was hospitalized I did not address this today. She had been on meloxicam I did not see that on her list. For some reason patient was on omeprazole as well I do not see a diagnosis for that we will need to check that when I see her back. She will have a telehealth visit with me in 1 month. Other orders - omeprazole (PRILOSEC) 20 mg capsule; TAKE 1 CAPSULE BY MOUTH EVERY DAY TO PREVENT HEARTBURN - traZODone (DESYREL) 50 mg tablet; TAKE 1 TABLET AT BEDTIME NEEDED FOR SLEEP - escitalopram oxalate (LEXAPRO) 20 mg tablet; Take 1 Tab by mouth daily. Return in about 1 month (around 01/02/2020) for telehealth recheck depression. Some of this note was transcribed with [employer] dictating software. While it was proofread, it may still contain unnoticed grammatical or word errors due to incorrect transcribing. The concept of ???Telemedicine?? has been described to the patient. Patient has been informed of the anticipated benefits and possible risks. Patient understands the information provided regarding telemedicine, has had the opportunity to ask questions about this information, and all questions have been answered to patient???s satisfaction. Patient consents for the use of telemedicine in his/her medical care and authorizes the transmission of any relevant medical information to providers and their staff involved in patient???s medical or mental health care. TELEMEDICINE VIDEO VISIT Today's visit was provided through telemedicine video conferencing: I have reviewed the appropriateness of using video technology with the patient with regards to today's visit. The location of the patient : Home The location of the provider: Office The following staff and their role did participate in today's encounter visit: Puja Cadena MD I spent a total of 30 minutes with Ann Roy Yovana today and 30 minutes of that time was spent in counseling and coordination of care as described in the progress note. Puja gonzáles - 12/02/2019 1430 EDT The concept of ???Telemedicine?? has been described to the patient.? Patient has been informed of the anticipated benefits and possible risks.? Patient understands the information provided regarding telemedicine, has had the opportunity to ask questions about this information, and all questions have been answered to patient???s satisfaction. Patient consents for the use of telemedicine in his/her medical care and authorizes the transmission of any relevant medical information to providers and theirstaff involved in patient???s medical or mental health care. documented in this encounter Plan of Treatment Not on filedocumented as of this encounter Visit Diagnoses Diagnosis Severe episode of recurrent major depres sive disorder, without psychotic features (HCC) - Primary Tobacco use disorder documented in this encounter Historical Medications This list may reflect changes made after this encounter. Medication Sig Dispensed Refills Start Date End Date traZODone (DESYREL) 50 TAKE 1 TABLET AT 0 020 03/28/2021 mg tablet BEDTIME NEEDED FOR SLEEP omeprazole (PRILOSEC) TAKE 1 CAPSULE BY 0 020 03/28/2021 20 mg capsule MOUTH EVERY DAY TO PREVENT HEARTBURN added in this encounter Care Teams Network Programmer Relationship Specialty Start Date End Date Hi Cadena MD PCP - General 05/20/18 documented as of this encounter
--- OUTSIDE RECORDS SUMMARY | 2021-11-14 11:59 | XMS_ITS | Encounter Summary ---
:1995 Author Organization [facility] Address [address] [place] [address] Care Team Providers Name Role Phone Hi Cadena MD Primary Care Provider Reason for Visit Reason Onset Date Comments Immunizations 07/03/2019 Other 07/03/2019 reaction? Encounter Details Date Type Department Care Team Description 07/03/2019 Telephone [facility] Hi Cadena MD Immunizations; Other Family Medicine [address] ad (reaction?) [place], [place] [address] [facility] [id number] [place] [address] [phone] Social History Tobacco Use Types Packs/Day Years [...] this encounter Miscellaneous Notes Telephone Encounter - Arabella Marie RN - 07/03/2019 1149 EST 07/03/19 11:49 Return call to Ann. No answer at the time of my call. Based on the PSS's message she has had a localized reaction to her pneumococcal vaccine on 06/30/2019. I've left S&S to monitor for and asked that she call back with any questions or changes. ARABELLA MARIE RN elephone Encounter - Sandy Santacruz - 07/03/2019 0948 EST Patient is calling about vaccine received on Sunday - thinking it might have been the pneumonia one.Patient is stating that arm is still painful and that there are some red dots that showed up on lower arms (both have bumps). documented in this encounter Plan of Treatment Not on filedocumented as of this encounter Visit Diagnoses Not on filedocumented in this encounter Care Teams Crusher Setter Relationship Specialty Start Date End Date Hi Cadena MD PCP - General 05/20/18 documented as of this encounter
--- OUTSIDE RECORDS SUMMARY | 2021-11-14 11:59 | XMS_ITS | Encounter Summary ---
:1995 Author Organization [facility] Address [address] [place] [address] Care Team Providers Name Role Phone Hi Cadena MD Primary Care Provider Reason for Visit Reason Comments Other Encounter Details Date Type Department Care Team Description 09/27/2018 Refill [facility] Nurse Niki Alvarado, LAMINATING MACHINE OPERATOR Other Midwifery Program - [facility] [place] [address] [place] [address], [address] [place], [place] [id number] [place] [address] [phone] (Wo rk) Social History Tobacco Use Types [...] documented as of this encounter Care Teams Screen Printing Machine Loader Unloader Relationship Specialty Start Date End Date Hi Cadena MD PCP - General 05/20/18 documented as of this encounter
--- OUTSIDE RECORDS SUMMARY | 2021-11-14 11:59 | XMS_ITS | Encounter Summary ---
:1995 Author Organization [facility] Address [address] [place] [address] Care Team Providers Name Role Phone Hi Cadena MD Primary Care Provider Reason for Visit Reason Comments Other blood pressure check Encounter Details Date Type Department Care Team Description 09/02/2018 Office Visit [facility] NurseJarad Super vision of high Nurse Midwifery Janitor Supervisor risk pregnan cy in Program - [facility] [place] (Primary Dx) [address] [place] [address] Social History Tobacco Use Types Packs/Day Years [...] Sign Reading Time Taken Comments Blood Pressure 138/74 09/02/2018 0922 EDT Pulse - - Temperature - - [...] documented as of this encounter Progress Notes Aleisha Esqueda - 09/02/2018 0830 EDT BP check in the office today. BP: 138/74. Pt just previously dropped off 24 urine jugs at the lab. Will await results for any change in current plan to f/u in the office tomorrow with CHAITANYA Noyola. documented in this encounter Plan of Treatment Not on filedocumented as of this encounter Visit Diagnoses Diagnosis Supervision of high risk in ird trimester - Primary Unspecified high-risk documented in this encounter Care Teams Wine Consultant Relationship Specialty Start Date End Date Hi Cadena MD PCP - General 05/20/18 documented as of this encounter
--- OUTSIDE RECORDS SUMMARY | 2021-11-14 11:59 | XMS_ITS | Encounter Summary ---
:1995 Author Organization [facility] Address [address] [place] [address] Care Team Providers Name Role Phone Hi Cadena MD Primary Care Provider Reason for Visit Reason Onset Date Comments Labs Only 03/03/2021 Encounter Details Date Type Department Care Team Description 03/03/2021 Telephone [facility] Mone Guaman RN Labs Only - [place] [address] [place] [address] Social History Tobacco Use Types Packs/Day Years [...] this encounter Miscellaneous Notes Telephone Encounter - Eugenio Sanchez PA-C - 03/08/2021 1115 EDT Re-draw not necessary elephone Encounter - Mone Guaman RN - 03/03/2021 1253 EDT Call from Radha in the lab. Whole blood for pro insulin was packed on ice and frozen on receipt. Will need another draw. Routed to CCA/CCLPN MONE GUAMAN RN 03/03/2021 13:01 documented in this encounter Plan of Treatment Not on filedocumented as of this encounter Visit Diagnoses Not on filedocumented in this encounter Care Teams Service Associate Relationship Specialty Start Date End Date Hi Cadena MD PCP - General 05/20/18 documented as of this encounter
--- OUTSIDE RECORDS SUMMARY | 2021-11-14 12:00 | XMS_ITS | Encounter Summary ---
:1995 Author Organization [facility] Address [address] [place] [address] Care Team Providers Name Role Phone Hi Cadena MD Primary Care Provider Reason for Referral (Routine) - Receiving Office to Obtain Authorization Specialty Diagnoses / Procedures Referred By Contact Refer red To Contact Tamiko Tuttle MD [address] [address] Referral ID Status Reason Start Expiration Visits Visits Date Date Requested Authorized [id number] Receiving Office Specialty 1 1 to Obtain Services 9 Authorization Required Encounter Details Date Type Department Care Team Description 06/18/2018 Hospital Encounter [facility] [place] [facility] MD Tracy [address] [facility] [address] [phone] [facility] 4 [place] [address] (Wo rk) Social History Tobacco Use Types Packs/Day Years Used Date Former Smoker Smokeless Tobacco: Never Used Comments: quit with Alcohol Use Standard Drinks/Week Comments Yes 0 [...] Sign Reading Time Taken Comments Blood Pressure 120/61 06/18/2018 0510 EST Pulse - - Temperature 35.9 ??C (96.6 ??F) 06/18/2018 0510 EST Respiratory Rate 20 06/18/2018 0510 EST Oxygen Saturation - - Inhaled Oxygen Concentration - - Weight - - Height - - Body Mass Index - - documented in this encounter Discharge Diagnoses Diagnosis O36.8130 Decreased movements, thir d trimester, not applicable or unspecified-O36.8130[ICD-10-CM] Z3A.28 28 weeks gestation of -Z 3A.28[ICD-10-CM] documented in this encounter Medications at Time of Discharge Medication Sig Dispensed Refills Start Date End Date acetaminophen (TYLENOL) Take 650 mg by 0 09/07/2018 325 mg tablet mouth every 4 hours as needed for Pain (shoulder pain). ascorbic acid, vitamin C, Take 250 mg by 0 09/07/2018 (VITAMIN C) 250 mg tablet mouth daily. aspirin chewable 81 mg Take 81 mg by mouth 0 09/07/2018 tablet daily. doxylamine-pyridoxine, vit Take 2 Tabs by 30 Tab 1 01/3108/20/2018 B6, 10-10 mg tablet mouth at bedtime. magnesium oxide (MAG-OX) Take 400 mg by 0 09/07/2018 400 mg (241.3 mg mouth daily. magnesium) tablet vit Take by mouth. 0 11/14/19 19 calc,iron,folic ( #2 ORAL) documented as of this encounter Discharge Disposition Disposition Code Departure Means Destination Home or Self Care documented in this encounter Progress Notes Tamiko Tuttle MD - 06/18/2018 0564 EST L&D Triage Note C/C: SAAD Yen is a 23 y.o. @ 28w0d HPI: Reports very active movement on Sunday night, a little less on Sunday, and only flutters on Sunday and Sunday. She was then thinking about not feeling the baby move as much while lying in bed sosarpan called her mom who told her she should call her accounting recruiter. She denies contractions, pain, LOF, VB.Feeling well. O: BP 120/61 Temp 35.9 ??C (96.6 ??F) (Tympanic) Resp 20 LMP 11/20/2017 (Exact Date) FHT: 145 baseline, mod variability, + accels, no decels; Category I tracing Peculiar: Flat Gen: NAD, well appearing Abd: Soft, non-tender A/P: Ann Kirill Yen is a 23 y.o. @ 28w0d presenting with DFM. Category I tracing. - Reactive NST with active movement heard on monitor - Patient feeling movement on L&D - Discharge with follow up this week Discussed with CHAITANYA Peterson MD 06/18/2018 5:26 documented in this encounter Miscellaneous Notes Plan of Care - Henrietta Moeller RN - 06/18/2018 0518 EST 5:18 pt admitted for DFM. States Sunday night had a lot of movement but since Sunday has hadgradually less movement. Last night spoke with her mother and decided it best to call providerabout DFM. cEFM and toco in place. Pt denies headache, blurred vision, RUQ pain, VB, ctx. V/s stable. fht reactive. 5:20 MD Tuttle to bedside. 5:57 reactive NST. CHAITANYA Knapp to bedside. Plan for discharge home. documented in this encounter Plan of Treatment Scheduled Referrals Name Type Priority Associated Order Schedule Diagnoses PROVIDER FOLLOW-UP Outpatient Referral Routine Or dered: INSTRUCTIONS 06/18/2018 documented as of this encounter Visit Diagnoses Diagnosis Supervision of normal - Primar y Supervision of other normal documented in this encounter Orders Diet Count Last Ordered Date First Ordered Date DISCHARGE DIET 2 06/18/2018 Nursing Count Last Ordered Date First Ordered Date ACTIVITY INSTRUCTIONS 1 06/18/2018 BATHING INSTRUCTIONS 1 06/18/2018 Transfer Count Last Ordered Date First Ordered Date NOTIFY PPS OF DISCHARGE COMPLETE 1 06/18/2018 Discharge Count Last Ordered Date First Ordered Date DISCHARGE PATIENT 1 06/18/2018 Legal Count Last Ordered Date First Ordered Date MISCELLANEOUS DISCHARGE INSTRUCTIONS 1 06/18/2018 documented in this encounter Care Teams Manifest Clerk Relationship Specialty Start Date End Date Hi Cadena MD PCP - General 05/20/18 documented as of this encounter
--- OUTSIDE RECORDS SUMMARY | 2021-11-14 12:00 | XMS_ITS | Encounter Summary ---
:1995 Author Organization [facility] Address [address] [place] [address] Care Team Providers Name Role Phone None, Provider Primary Care Provider Unavailable Reason for Visit Reason Onset Date Comments Appointment Related 05/15/2018 Encounter Details Date Type Department Care Team Description 05/15/2018 Telephone [facility] Grace Beltran Appoint ment Related Women's Services - ZAID Dodson [address] [address] [address], [place] [id number] (Wo rk) Social History Tobacco Use Types [...] on file documented as of this encounter Miscellaneous Notes Telephone Encounter - Tamika Jackson - 05/15/2018 1625 EST Left message for patient letting her know I scheduled her anesthesiology consult for May 29 at 1:30PM. documented in this encounter Plan of Treatment Not on filedocumented as of this encounter Visit Diagnoses Not on filedocumented in this encounter Care Teams Auto Locator Relationship Specialty Start Date End Date None, Provider PCP - General 01/29/18 05/19/18 documented as of this encounter
--- OUTSIDE RECORDS SUMMARY | 2021-11-14 12:00 | XMS_ITS | Encounter Summary ---
:1995 Author Organization [facility] Address [address] [place] [address] Care Team Providers Name Role Phone Hi Cadena MD Primary Care Provider Reason for Visit Reason Comments Routine Visit Encounter Details Date Type Department Care Team Description 07/19/2018 Routine [facility] Lizbeth Knapp, [place]: 32w3d Nurse Midwifery Program INFORMATION SPECIALIST [facility] - [place] [address] [place] [address], [address] [place], [address] [place], [place] [address] [place] [address] [phone] (Wo rk) Social History Tobacco Use [...] Sign Reading Time Taken Comments Blood Pressure 128/70 07/19/2018 0852 EDT Pulse - - Temperature - - Respiratory Rate - - Oxygen Saturation - - Inhaled Oxygen Concentration - - Weight 140.6 kg (310 lb) 07/19/2018 0852 EDT Height - - Body Mass Index 43.24 07/08/2018 1037 EST documented in this encounter Progress Notes Ra Moore, Lizbeth Moreira CNM - 07/19/2018 0845 EDT S: Ann Yen is here today for a visit at 32w3d. Here with Carlos. Asking about waterbirth consent form as she discussed with last financial reporting analyst she saw. Not working. Denies bleeding, loss of fluid or painful contractions. + FM. O: Vitals: BP: 128/70 Weight : (!) 140.6 kg (310 lb) Fundal Height (cm): 36 cm Heart Rate: 145 Movement: Present Presentation: Vertex A: 23 y.o. at 32w3d IUP BMI 40 Anxiety/Depression P: Discussed with her that due to unavailability of tub, I wouldn't recommend a waterbirth forher as the bathroom tubs are too small for her. And delivery in those tubs not safe for baby. Encouraged her to reach out to [facility] forensic social worker, she states she keeps forgetting. Has growth u/s after this appointment Follow up in 2 wks documented in this encounter Plan of Treatment Not on filedocumented as of this encounter Visit Diagnoses Diagnosis Encounter for supervision of normal firs t in third trimester - Primary Supervision of normal first documented in this encounter Care Teams Data Processing Specialist Relationship Specialty Start Date End Date Hi Cadena MD PCP - General 05/20/18 documented as of this encounter
--- OUTSIDE RECORDS SUMMARY | 2021-11-14 12:00 | XMS_ITS | Encounter Summary ---
:1995 Author Organization [facility] Address [address] [place] [address] Care Team Providers Name Role Phone Hi Cadena MD Primary Care Provider Encounter Details Date Type Department Care Team Description 05/29/2018 Documentation Visit [facility] Nurse Aleisha Esqueda, Midwifery Program - RN [place] [address] [facility] [address] [place] [address] Social History Tobacco Use Types [...] on file documented as of this encounter Progress Notes Aleisha Esqueda - 05/29/2018 1400 EST Please see scanned CHOB U/S from 05/23/18. documented in this encounter Plan of Treatment Not on filedocumented as of this encounter Visit Diagnoses Not on filedocumented in this encounter Care Teams Glazier Structural Glass Relationship Specialty Start Date End Date Hi Cadena MD PCP - General 05/20/18 documented as of this encounter
--- OUTSIDE RECORDS SUMMARY | 2021-11-14 12:00 | XMS_ITS | Encounter Summary ---
:1995 Author Organization [facility] Address [address] [place] [address] Care Team Providers Name Role Phone Hi Cadena MD Primary Care Provider Reason for Visit Reason Comments Routine Visit Encounter Details Date Type Department Care Team Description 05/23/2018 Routine [facility] Kurtis Jimenez [place] : 24w2d Nurse Midwifery Program CHRISTINA Arechiga [facility] - [place] [address], [address] [place], [address] 4 [facility] [place] [id number] [place] [address] [phone] (Wo rk) Social History Tobacco Use [...] Sign Reading Time Taken Comments Blood Pressure 130/70 05/23/2018 0932 EST Pulse - - Temperature - - Respiratory Rate - - Oxygen Saturation - - Inhaled Oxygen Concentration - - Weight 135.2 kg (298 lb) 05/23/2018 0932 EST Height - - Body Mass Index 40.98 01/31/2018 1446 EDT documented in this encounter Progress Notes Kurtis Jimenez CNM - 05/23/2018 0915 EST S: Ann Kirill Yovana is here today for a visit. Baby active. Met with Michelle and didn't think it helped I know all that stuff. Having U/S today to clarify gender. Didn't call back [facility] social media project manager but open to that now - could be helpful. Thinking about CB ED. O: Vitals: BP: 130/70 Weight : (!) 135.2 kg (298 lb) Fundal Height (cm): 28 cm Heart Rate: 150 Movement: Present U/S: MAGGY 8.89 MVP 3.93 A: 23 y.o. at 24w2d IUP S>D BMI 39+ precludes accurate FH measurement Low normal fluid Anxiety/depression no meds P: Repeat U/S with next visit for MAGGY and growth (CHAITANYA thought today was growth U/S and was only limited) Strongly encouraged CB Ed Encouraged calling [facility] GCT, CBC next visit PTL info reviewed Follow up in 4 wks documented in this encounter Plan of Treatment Not on filedocumented as of this encounter Visit Diagnoses Diagnosis Encounter for supervision of normal firs t in second trimester - Primary Supervision of normal first documented in this encounter Care Teams Sous Chef Relationship Specialty Start Date End Date Hi Cadena MD PCP - General 05/20/18 documented as of this encounter
--- OUTSIDE RECORDS SUMMARY | 2021-11-14 12:00 | XMS_ITS | Encounter Summary ---
:1995 Author Organization [facility] Address [address] [place] [address] Care Team Providers Name Role Phone Hi Cadena MD Primary Care Provider Reason for Visit Reason Comments Routine Visit Encounter Details Date Type Department Care Team Description 06/20/2018 Routine [facility] Vicky Alvarado, [place]: 28w2d Nurse Midwifery Program ER RN [facility] - [place] [address], [address] [place], [address] [place], [place] [address] [place] [address] [phone] (Wo rk) Social History Tobacco Use [...] Sign Reading Time Taken Comments Blood Pressure 124/66 06/20/2018 0859 EST Pulse - - Temperature - - Respiratory Rate - - Oxygen Saturation - - Inhaled Oxygen Concentration - - Weight 138.3 kg (305 lb) 06/20/2018 0859 EST Height - - Body Mass Index 41.95 01/31/2018 1446 EDT documented in this encounter Discharge Disposition Disposition Code Departure Means Destination Auto Discharge documented in this encounter Progress Notes Vicky Alvarado CNM - 06/20/2018 0845 EST S: Ann Yen is here today for a visit at 28w2d. Feeling well. Was seen on L&D for decreased FM, baby has been active since. Interested in water . Still has not signed up for CBE, looking into [facility]. Denies bleeding, loss of fluid or painful contractions. + FM. O: Vitals: BP: 124/66 Weight : (!) 138.3 kg (305 lb) Fundal Height (cm): 32 cm Heart Rate: 150 Movement: Present A: 23 y.o. at 28w2d IUP S>D, likely d/t body habitus BMI 39- plan growth at 32 and 36wks (ordered) Anxiety/depression no meds Rh positive P: CBC/GTT/Tdap today Forgot to give consent for water please give at next visit Encouraged CBE, especially if strongly desires NCB Growth US today after visit Has received phone calls from [facility], encouraged to return calls and make time to meet Follow up in 2 wks documented in this encounter Plan of Treatment Not on filedocumented as of this encounter Procedures Procedure Name Priority Date/Time Associated Diagnosis Comme nts GLUCOSE-1HR Routine 06/20/2018 9:31 Supervision of high Resul ts for this GESTATIONAL SCREEN EST risk in proc edure are in third trimester the results section. COMPLETE BLOOD COUNT Routine 06/20/2018 9:31 Supervision of hi gh Results for this EST risk in procedure are in third trimester the results section. documented in this encounter Results (ABNORMAL) COMPLETE BLOOD COUNT (06/20/2018 9:31 EST) Pathologist Sig nature WBC 12.69 (H) 4.0 - 12.4 K/cmm [facility] RBC 3.71 (L) 3.86 - 5.04 M/cmm [facility] Hemoglobin 11.7 11.6 - 15.2 gm/dl [facility] HCT 35.3 34.9 - 44.4 % [facility] MCV 95 81 - 98 fl [facility] MCH 31.5 26.7 - 33.3 pg [facility] MCHC 33.1 32.1 - 35.9 gm/dl [facility] RDW-CV 12.4 <14.7 % [facility] RDW-SD 43.1 <50.4 fl [facility] PLT 277 141 - 377 K/cmm [facility] MPV 9.8 9.5 - 12.7 fl [facility] Specimen Blood specimen (specimen) - Blood Performing Organization Address [facility] Phon e Number [facility] [address] [place] [address] SERVICES GLUCOSE-1HR GESTATIONAL SCREEN (06/20/2018 9:31 EST) Glucose Dose Not Given g [facility] Glucose-1hr Gest 76 50 - 134 [facility] Scn Comment: mg/dl LABORATORY Moderate hemolysis SERVICES Results may be affected due to hemolysis. A one hour glucose greater than or equal to 135 mg/dl should be further evaluated with a formal three hour glucose tolerance test. Specimen Blood specimen (specimen) - Blood Performing Organization Address [facility] Phon e Number [facility] [address] [place] [address] SERVICES documented in this encounter Visit Diagnoses Diagnosis Supervision of high risk in th ird trimester - Primary Unspecified high-risk documented in this encounter Orders Immunization/Injection Count Last Ordered Date First O rdered Date TDAP VACCINE =>7YO IM 1 06/20/2018 documented in this encounter Care Teams Stone Carver Relationship Specialty Start Date End Date Hi Cadena MD PCP - General 05/20/18 documented as of this encounter
--- OUTSIDE RECORDS SUMMARY | 2021-11-14 12:00 | XMS_ITS | Encounter Summary ---
:1995 Author Organization [facility] Address [address] [place] [address] Care Team Providers Name Role Phone Hi Cadena MD Primary Care Provider Reason for Visit Reason Comments Routine Visit Encounter Details Date Type Department Care Team Description 07/04/2018 Routine [facility] Maryjo Noyola, [place]: 30w2d Nurse Midwifery Program CONCRETE BATCH PLANT OPERATOR [facility] [place] [address], [address] [place], [address] [facility] [place] [address] [place] [address] [phone] (Wo rk) Social History Tobacco Use [...] Sign Reading Time Taken Comments Blood Pressure 134/74 07/04/2018 1019 EST Pulse - - Temperature - - Respiratory Rate - - Oxygen Saturation - - Inhaled Oxygen Concentration - - Weight 138.6 kg (305 lb 8 oz) 07/04/2018 1019 EST Height - - Body Mass Index 42.01 01/31/2018 1446 EDT documented in this encounter Progress Notes Maryjo Noyola CNM - 07/04/2018 1030 EST S: Ann Kirill Yovana is here today for a visit at 30+2. Here with Carlos. Denies bleeding,loss of fluid or painful contractions. + FM. Feeling more anxious recently, but able to self-regulate. Not currently working, finding it hard to remember things like appts. Also keeps forgetting to call Josselin Rodriguez [facility], but would like to meet with her. Does not want to do CBE. Will start reading at home, watching videos. Will start getting the house ready when their roommate moves out. They have a baby shower next week! O: Vitals: BP: 134/74 Weight : (!) 138.6 kg (305 lb 8 oz) Fundal Height (cm): 35 cm Heart Rate: 145 Movement: Present Presentation: Vertex 28 wk labs: 11.7 hgb GTT 76 28 wk growth US MAGGY 11 VTX 76% A: 23 y.o. at 30w1d IUP S>D, likely d/t body habitus, normal 28 wk growth BMI 39- plan growth at 32 and 36wks (ordered) Anxiety/depression no meds Rh positive P: Rev'd normal 28 wk labs and 28 wk growth US Pt is. Do we have BMI cut off 32 wk growth scan for BMI Declines CBE, will start reading and prepping at home Will look into pedi next week Will call Josselin with [facility] to set up appt. Follow up in 2 wks documented in this encounter Plan of Treatment Not on filedocumented as of this encounter Visit Diagnoses Diagnosis Encounter for supervision of normal firs t in third trimester - Primary Supervision of normal first documented in this encounter Care Teams Inspector Packer Glass Container Relationship Specialty Start Date End Date Hi Cadena MD PCP - General 05/20/18 documented as of this encounter
--- OUTSIDE RECORDS SUMMARY | 2021-11-14 12:00 | XMS_ITS | Encounter Summary ---
:1995 Author Organization [facility] Address [address] [place] [address] Care Team Providers Name Role Phone Hi Cadena MD Primary Care Provider Encounter Details Date Type Department Care Team Description 06/20/2018 Hospital Encounter [facility] - [facility] Annel Alvarado, [id number] [place] [address] [facility] [address] [place] [phone] (Wo rk) Social History Tobacco [...] on file documented as of this encounter Discharge Diagnoses [...] on filedocumented in this encounter Care Teams Industrial Tractor Driver Relationship Specialty Start Date End Date Hi Cadena MD PCP - General 05/20/18 documented as of this encounter
--- OUTSIDE RECORDS SUMMARY | 2021-11-14 12:00 | XMS_ITS | Encounter Summary ---
:1995 Author Organization [facility] Address [address] [place] [address] Care Team Providers Name Role Phone Hi Cadena MD Primary Care Provider Reason for Visit Reason Comments Routine Visit Encounter Details Date Type Department Care Team Description 08/15/2018 Routine [facility] Grace Beltran [place]: 36w2d Nurse Midwifery Program Abena cuevas NP - [place] [address], [address] [place], [address] 4 [place], [place] [address] [place] [address] [phone] (Wo rk) Social History Tobacco Use [...] Sign Reading Time Taken Comments Blood Pressure 128/72 08/15/2018 0844 EDT Pulse - - Temperature - - Respiratory Rate - - Oxygen Saturation - - Inhaled Oxygen Concentration - - Weight 144.2 kg (318 lb) 08/15/2018 0844 EDT Height - - Body Mass Index 44.35 07/08/2018 1037 EST documented in this encounter Discharge Diagnoses Diagnosis Z34.00 Encounter for supervision of yadira ballard first , unspecified trimester-Z34.00[ICD-10-CM] documented in this encounter Discharge Disposition Disposition Code Departure Means Destination Auto Discharge documented in this encounter Progress Notes Devin Moore, Grace Dodson CNM - 08/15/2018 0845 EDT S: Ann Yen is here today for a visit at 36w2d. Was uncomfortable last night d/t baby's position. Having waves of nausea today, no emesis but hasn't been able to eat or hydrate. Norecent sick contacts. Denies fever, chills, diarrhea, symptoms PTL or PEC, bleeding, loss of fluid or painful contractions. + FM. Setting up baby's crib today! O: Vitals: BP: 128/72 Weight : (!) 144.2 kg (318 lb) Fundal Height (cm): 40 cm Heart Rate: 145 Movement: Present Presentation: Vertex A: 23 y.o. at 36w2d IUP BMI 39 S>D likely d/t habitus, AGA at 32w Anxiety/depression Rh pos P: GBS collected, discussed treatment Opiate consent signed Growth ultrasound to follow this visit Reviewed warning signs/when to call Follow up in 1 wk, sooner PRN Addendum 16:34 Ultrasound following visit today rubén breech, EFW 2751g / 50%tile, MAGGY 18.6. Per discussion jerzy Kilpatrick MD, pt does not want version. Called pt after clinic to discuss options. Left message and suggested Spinning Babies, acupuncture, chiropractic to encourage baby to turn; advised to call back with questions or concerns. Please address at [place] if pt does not call back before then. documented in this encounter Plan of Treatment Not on filedocumented as of this encounter Procedures Procedure Name Priority Date/Time Associated Diagnosis Comme nts GROUP B STREP PCR Routine 08/15/2018 9:03 EDT Supervision of n ormal Results for this first , procedure a re in antepartum the results section. documented in this encounter Results (ABNORMAL) GROUP B STREP PCR (08/15/2018 9:03 EDT) Pathologist Sig nature GROUP B STREP PCR Positive (AA) [facility] Specimen Other (qualifier value) - Other Performing Organization Address City/State/ZIP Code Phon e Number [facility] [address] [place] [address] SERVICES documented in this encounter Visit Diagnoses Diagnosis Supervision of normal first , a ntepartum - Primary documented in this encounter Care Teams Microstrategy Developer Relationship Specialty Start Date End Date Hi Cadena MD PCP - General 05/20/18 documented as of this encounter
--- OUTSIDE RECORDS SUMMARY | 2021-11-14 12:00 | XMS_ITS | Encounter Summary ---
:1995 Author Organization [facility] Address [address] [place] [address] Care Team Providers Name Role Phone None, Provider Primary Care Provider Unavailable Reason for Visit Reason Comments Advice Only Encounter Details Date Type Department Care Team Description 05/13/2018 Office Visit [facility] [place] Gabi Rae, CHRISTINA Guthrie nxiety and depression (Primary Dx); Nurse Midwifery [facility] state, incidental Program - [place] [address] [place], [address] [place] [facility], [place] [id number] [place] [address] [phone] (Wo rk) Social History Tobacco Use Types [...] documented as of this encounter Progress Notes Gabi Rae, CHAITANYA - 05/13/2018 0945 EST [facility] Mental Health. Name: Ann Yen : 1995 Evaluation Date: 05/30/2018 Evaluation Time: 944 Evaluation Length: 45 minutes PCP: Hi Cadena Referral Source: [facility] Chief Complaint Patient presents with ??? Advice Only HPI: Ann Yen is a 23 y.o. seen in [facility] at [facility] for Advice. She has a history of anxiety and depression. Her mood is good. She is excitedabout the . Sleep is all over the place mostly due to discomforts. They just got a new bed. She stopped working at the beginning of . Her partner works the third shift lieutenant 7 PM to 7 AM 3-4 days a week. She is feeling lonely. Reports her appetite's okay. She is eating small frequent meals. She describes the anxiety as a random. She isolates herself will not connect on the phone and has difficulty getting out of the house when she panic she gets shaky and upset. She believes is from holding and her stress. Mood: Euthymic Sleep:difficulty falling asleep, difficulty staying asleep and non restorative sleep Psychiatric ROS in addition to HPI: Depression: Depressed mood: No Interests: decreased Enjoyment of usual activities: decreased Guilt: No Helplessness: No Hopelessness: No Low self esteem: No Suicidal thoughts: No active or passive ideation Bipolar: No evidence current or historical. Anxiety: panic attacks, agoraphobia, insomnia and adrenergic symptoms Trauma: Does not endorse traumatic event. Psychosis: No evidence for hallucinations, delusions, or paranoia. Psychiatric History: Reports she is always had mental health problems. Had therapy in childhood she was a angry child in middle school. Was stable in high school. Became depressed after job injury 2 years ago isolated herself and developed social anxiety Previous diagnosis: Anxiety and depression Previous medication: Cymbalta made her worse causing suicidal ideation. She changed to sertraline with as needed hydroxyzine which helped her to get back to work and decrease her anxiety. And she eventually stopped the medication. Prior therapy: Intermittently since childhood Prior hospitalization/emergency room visits: Denies Prior suicidal /aggressive behavior/self harm behaviors: Denies other than the suicidal ideation related to the Cymbalta Prior psychotic ideas: Negative Substance Use/Abuse Hx: None Psychosocial History: Has lived in [place] for a long time and has friends. Her parents are [place]. She has 2 younger sisters Marital status: , involved with current partner since October. Children: Both her first pregnancies Living Arrangements: Moved in with Carlos and his roommates November. 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 : Legal history: Recently her divorce was finalized from a prior partner Spiritism: Ethnic and Cultural factors: Developmental history: Trauma/Abuse History: Not addressed Family Mental health Hx: Not addressed Review of Systems - A ten point review of systems was performed. Pertinent positives are listed in HPI, all others are negative. Current Substance Use: Caffeine:Ann denies significant caffeine consumption Tobacco: Quit smoking ETOH: The patient denies significant use of alcohol. in : None Recreational substances: Has used marijuana daily for anxiety in the past. Stopped . General Diet Adhesive and Ciprofloxacin Past Medical History: Diagnosis Date ??? Anxiety and depression was formerly on meds, stopped july 2017, cannot remember med names, will find out. interested in seeing Michelle in 2nd or 3rd tri or PRN ??? Kidney stones 2017 expectant mgmt, only 1 UTI in her lifetime ??? Supervision of normal Past Surgical History: Procedure Laterality Date ??? CHOLECYSTECTOMY ??? TONSILLECTOMY Current Outpatient Medications: acetaminophen (TYLENOL) 325 mg tablet ascorbic acid, vitamin C, (VITAMIN C) 250 mg tablet aspirin chewable 81 mg tablet doxylamine-pyridoxine, vit B6, 10-10 mg tablet magnesium oxide (MAG-OX) 400 mg (241.3 mg magnesium) tablet vit calc,iron,folic ( #2 ORAL) No current facility-administered medications for this visit. Pertinent Medication Side Effects: None /: unplanned . Missed Depo-Provera injection. Objective: Last menstrual period 11/20/2017. There is no height or weight on file to calculate BMI. Musculoskeletal: Coordination: normal Gait: Normal Skin: Skin color, temperature, turgor normal. No rashes or lesions or mucous membranes pink and moist. 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 Normal, relaxed Language: normal Thought process: Thought Process: Clear, Coherent, Organized and Goal-Directed Thought content: intact and future-oriented Perceptions: no evidence for abnormal Insight: Understands problem, causes and consequences Judgement: intact SI/HI: No active or passive thoughts of harm to self or others. Assessment: 23 y.o. at 22w6d in an unplanned but welcomed with her partner Carlos. She has a past history of anxiety and depression. Her mood is good but she has noticed some increased anxiety since the onset of . Currently not interested in medication and is considering mindfulness based stress reduction tools. [place] I: Adjustment Disorder with anxiety [place] II: Deferred [place] III: [place]: IV: Intact but Limited primary support group, social environment, education, housing, economic, access/health care. Occupational problems Risk Assessment: No current SI/HI or safety concerns. P: Labs: no labs indicated at this time Medications: Encouraged addition of vitamin D3 1000 international units daily to her current supplements. Resources: Discussed mindfulness tools for and . Introductory work shop. She will let me know if it fits her schedule or she will consider if she would like to do mindfulness tools [id number] with me. Counseling: discussed the risks of anxiety disorder, in , the pathophysiology, etiology, risks and principles of treatment. Reviewed concept of anxiety as biochemical imbalance of neurotransmitters and rationale for treatment. Follow up: As desired Reviewed reportable symptoms of mood changes. The patient knows that she can contact me in the interim. She understands emergency contact procedures. n. Patient Instruction/Education provided: Treatment plan discussed verbally. Patient demonstrates understanding verbally. Spent 30 minutes (>50% of visit) face to face in counseling and coordination of care. documented in this encounter Plan of Treatment Not on filedocumented as of this encounter Visit Diagnoses Diagnosis Anxiety and depression - Primary Dysthymic disorder state, incidental documented in this encounter Historical Medications This list may reflect changes made after this encounter. Medication Sig Dispensed Refills Start Date End Date magnesium oxide (MAG-OX) Take 400 mg by mouth 0 09/07/2018 400 mg (241.3 mg daily. magnesium) tablet aspirin chewable 81 mg Take 81 mg by mouth 0 09/07/2018 tablet daily. added in this encounter Care Teams Property Controller Relationship Specialty Start Date End Date None, Provider PCP - General 01/29/18 05/19/18 documented as of this encounter
--- OUTSIDE RECORDS SUMMARY | 2021-11-14 12:00 | XMS_ITS | Encounter Summary ---
:1995 Author Organization [facility] Address [address] [place] [address] Care Team Providers Name Role Phone Hi Cadena MD Primary Care Provider Reason for Visit Reason Comments Routine Visit Encounter Details Date Type Department Care Team Description 08/01/2018 Routine [facility] Vicky Alvarado, [place]: 34w2d Nurse Midwifery Program [facility] [place] [address] [place], [address] [place], [place] [id number] [place] [address] [phone] (Wo rk) Social History Tobacco Use [...] Sign Reading Time Taken Comments Blood Pressure 126/68 08/01/2018 0957 EDT Pulse - - Temperature - - Respiratory Rate - - Oxygen Saturation - - Inhaled Oxygen Concentration - - Weight 141.5 kg (312 lb) 08/01/2018 0957 EDT Height - - Body Mass Index 43.52 07/08/2018 1037 EST documented in this encounter Ordered Prescriptions Prescription Sig Dispensed Refills Start Date End Date ranitidine (ZANTAC) 150 mg Take 1 tablet by 60 tablet 1 08/20/2019 tablet mouth 2 times daily. documented in this encounter Progress Notes Vicky Alvarado Cnm - 08/01/2018 1000 EDT S: Ann Yen is here today for a visit at 34w2d. Having some heartburn, wondering what she can take, feels like she needs Rolaids all day long. They have a carseat, getting everything ready for baby. Will use [facility] family practice for pedi. Denies bleeding, loss of fluid or painful co ntractions. + FM. O: Vitals: BP: 126/68 Weight : (!) 141.5 kg (312 lb) Fundal Height (cm): 38 cm Heart Rate: 145 Movement: Present Presentation: Vertex A: 23 y.o. at 34w2d IUP S>D, FH inaccurate d/t habitus, AGA by US at 32wk 80%tile Prepregnancy BMI 39 Rh positive Anxiety/depression P: Reviewed when to call, when to come in labor GBS at next visit Growth US at 36wks (already ordered) Zantac e-scripted to [facility], also reviewed separate water and meals, avoid trigger foods, small frequent snacks versus large meals, avoid eating right before bed Follow up in 2 wks Lulu CHADWICK participated in care documented in this encounter Plan of Treatment Not on filedocumented as of this encounter Visit Diagnoses Diagnosis Encounter for supervision of normal firs t in third trimester - Primary Supervision of normal first documented in this encounter Care Teams Solderer Production Line Relationship Specialty Start Date End Date Hi Cadena MD PCP - General 05/20/18 documented as of this encounter
--- OUTSIDE RECORDS SUMMARY | 2021-11-14 12:00 | XMS_ITS | Encounter Summary ---
:1995 Author Organization [facility] Address [address] [place] [address] Care Team Providers Name Role Phone None, Provider Primary Care Provider Unavailable Reason for Visit Reason Comments Routine Visit Encounter Details Date Type Department Care Team Description 03/27/2018 Routine [facility] Kurtis Jimenez [place] : 16w1d Nurse Midwifery Program CHRISTINA Arechiga CN - [place] 111 [facility] [address] [facility] [place], [address] [facility], [place] [id number] [place] [address] [phone] (Wo rk) Social History Tobacco Use Types [...] Sign Reading Time Taken Comments Blood Pressure 122/66 03/27/2018 1457 EST Pulse - - Temperature - - Respiratory Rate - - Oxygen Saturation - - Inhaled Oxygen Concentration - - Weight 130.6 kg (288 lb) 03/27/2018 1457 EST Height - - Body Mass Index 39.61 01/31/2018 1446 EDT documented in this encounter Progress Notes Kurtis Jimenez CNM - 03/27/2018 1445 EST S: Ann Kirill Zeina is here today for a visit. Here with partner Carlos. Unable to get moreinfo about sister's cardiac problem. Still with some sleep issues, wakes and then lots of thoughts keep her up. Open to meeting with Michelle Rae to explore anxiety/depression hx - cancelled previous appt. Still not smoking! Partner who does not smoke is pleased. Confirms does not desire genetic testing- asking about what can be seen on MARGARETTE? O: Vitals: BP: 122/66 Weight : (!) 130.6 kg (288 lb) Heart Rate: 160 Fundus 1/2 between S/U Early GCT = 86 A: 23 y.o. at 16w4d IUP S=D BMI 39 Anxiety/depression Possible family cardiac defect? P: Discussed sleep hygiene, Sleepytime tea OK. Could offer Unisom prn MARGARETTE scheduled for 04/23/18. Discussed if cardiac views warrant can do echo prn Encouraged scheduling visit with Gabi Rae for further proactive discussion of coping strategies Follow up in 4 wks documented in this encounter Plan of Treatment Not on filedocumented as of this encounter Visit Diagnoses Diagnosis Encounter for supervision of normal firs t in second trimester - Primary Supervision of normal first documented in this encounter Care Teams Shank Piece Tacker Relationship Specialty Start Date End Date None, Provider PCP - General 01/29/18 05/19/18 documented as of this encounter
--- OUTSIDE RECORDS SUMMARY | 2021-11-14 12:00 | XMS_ITS | Encounter Summary ---
:1995 Author Organization [facility] Address [address] [place] [address] Care Team Providers Name Role Phone None, Provider Primary Care Provider Unavailable Reason for Referral DITTO MACHINE OPERATOR (Routine) - New Request Specialty Diagnoses / Procedures Referred By Contact Refer red To Contact Diagnoses BMI 39.0-39.9,adult Vicky Alvarado, TRADEMARK ATTORNEY Procedures DETENTION ROUTINE [address] [place] [address] Referral ID Status Reason Start Date Expiration Date Visits V isits Requested Authorized [id number] New Request 03/02/2018 1 1 Reason for Visit Reason Comments Routine Visit Encounter Details Date Type Department Care Team Description 03/01/2018 Routine [facility] Vicky Alvarado, [place]: 12w3d Nurse Midwifery Program TRADEMARK ATTORNEY CNM - [place] [address] [place] [address], [address] [facility], [place] [id number] [place] [address] [phone] (Wo rk) Social History Tobacco Use [...] Sign Reading Time Taken Comments Blood Pressure 124/72 03/01/2018 1314 EDT Pulse - - Temperature - - Respiratory Rate - - Oxygen Saturation - - Inhaled Oxygen Concentration - - Weight 130.2 kg (287 lb) 03/01/2018 1314 EDT Height - - Body Mass Index 39.47 01/31/2018 1446 EDT documented in this encounter Discharge Diagnoses Diagnosis Z34.02 Encounter for supervision of yadira ballard first , second trimester-Z34.02[ICD-10-CM] documented in this encounter Discharge Disposition Disposition Code Departure Means Destination Auto Discharge documented in this encounter Progress Notes Vicky Alvarado CNM - 03/01/2018 1315 EDT US added to episdoes, not c/w LMP, MANUEL changed to 09/10/18 S: Ann Pastrana is here today for a visit with Carlos. Has a history of anxiety/depression. Mood feels okay, a little more irritable/danielle lately, but feels she is coping with it. Biggest concern is trouble with sleep. Taking Unisom occasionally- seems to help. On nights she doesn't she will be awake tossing and turning all night. She feels exhausted from the lack of consistent sleep. No formal exercise, but on her feet at work. No vaginal bleeding or cramping. O: Vitals: BP: 124/72 Weight : (!) 130.2 kg (287 lb) Heart Rate: 160 A: 23 y.o. at 12w3d IUP S=D Former smoker- quit in early BMI 39 Anxiety/depression P: Start ASA 162mg today Early GTT today Ann forgot to ask about sister's cardiac history- will check and give up date at next visit MARGARETTE ordered today Reviewed warning signs/when to call Discussed good sleep hygiene and strategies to promote sleep, reviewed mindfulness activities, insomnia could be related to anxiety, encourage regular exercise Offered visit with Michelle for anxiety/depression Follow up in 4 wks documented in this encounter Plan of Treatment Not on filedocumented as of this encounter Procedures Procedure Name Priority Date/Time Associated Diagnosis Comme nts DETENTION ROUTINE Routine 04/23/2018 8:54 BMI 39.0-39.9,adult Resul ts for this EST procedure are i n the results section. GLUCOSE-1HR Routine 03/01/2018 14:17 Encounter for Results fo r this GESTATIONAL SCREEN EDT supervision of procedu re are in normal first the results in second section. trimester documented in this encounter Results DETENTION ROUTINE (04/23/2018 8:54 EST) Anatomical Region Laterality Modality Other Specimen Narrative [facility] RADIOLOGY MATERNAL FE [facility]ANDA [facility]IC[facility] ACC - 04/23/2018 14:09 EST Indication BMI 37.2. Screening. History ======= General History Height 185 cm Height (ft) ?6 ft Height (in) ?1 in Previous Outcomes ?1 Maternal Assessment Height 185 cm Height (ft) ?6 ft Height (in) ?1 in Physical Exam Initial weight 128 kg Initial weight (lb) ?282 lb Initial BMI ?37.21 kg/m? Number of fetuses: 1. Dating ======= Method of dating: ??based on the externa l assessment Stated Dating on: ?02/01/2018 GA at stated dating date 8 w + 3 d GA by stated dating ??20 w + 0 d MANUEL by stated dating: ?09/10/2018 Ultrasound examination on: 04/23/2018 GA by U/S based upon: ??AC, BPD, Femur GA by U/S ??20 w + 0 d MANUEL by U/S: ?09/10/2018 Assigned: ??Dating performed on 04/23/20 18, based on the external assessment (on 02/01/2018) Assigned GA ?20 w + 0 d Assigned MANUEL: ??09/10/2018 General Evaluation Cardiac activity: Present. FHR 149 bpm. movements: visualized. Presentation: rubén breech. Placenta: posterior. Umbilical cord: Cord vessels: 3 vessel c ord. Cord insertion: placental insertion: normal. Amniotic fluid: Amount of AF: normal. Biometry Biometry BPD ?45.4 mm 38% 19w 5d Hadlock OFD ?62.1 mm 88% 21w 2d Daniel HC 172.6 mm ?44% [place] AC 147.4 mm ?45% 20w 0d Hadlock Femur ??32.5 mm 69% 20w 2d Daniel Cerebellum tr ??19.8 mm 45% 19w 5d Golds tein CM 3.2 mm ??5% Nicolaides Nuchal fold ?3.66 mm Humerus ?31.6 mm 74% 20w 4d Daniel EFW ?328 g Calculated by: Hadlock ([id number]) EFW (lb) ?? 0 lb EFW (oz) ?? 12 oz Cephalic index 0.73 ?5% Nicolaides HC / AC ?1.17 ?55% Hadlock FL / BPD ?? 0.72 ?65% Hadlock FL / AC ?0.22 ?59% Hadlock FHR ?149 bpm Head / Face / Neck Membership Director 4.9 mm Extremities / Bony Struc Foot ?? 32.2 mm 44% Chitty Anatomy Cranium: ?? normal Lateral ventricles: ?normal Choroid plexus: ?normal Midline falx: ??normal Cavum septi pellucidi: normal Cerebellum: ?normal Cisterna magna: ?normal Lips: ??normal Lips: ??in suboptimal views 4-chamber view: ?normal RVOT: ??normal LVOT: ??normal 3-vessel view: normal 8-leyhbb-flxacor view: normal Cord insertion: ?normal Stomach: ?? normal Kidneys: ?? normal Bladder: ?? normal Abdom. wall: ?? normal Cervical spine: ?normal Thoracic spine: ?normal Lumbar spine: ??normal Sacral spine: ??normal Arms: ??normal Legs: ??normal Rt foot: ?? not adequately visualized Gender: ?female Wants to know gender: ??yes Maternal Structures Uterus / Cervix Uterus: ?Appears normal Cervix: ?Appears normal Ovaries / Tubes / Adnexa Rt ovary: ??Visualized, normal appearanc e Rt ovary D1 ?2.1 cm Rt ovary D2 ?2.4 cm Rt ovary D3 ?3.0 cm Rt ovary mean ??2.5 cm Rt ovary vol ?? 7.9 cm cubed Lt ovary: ??Visualized, normal appearanc e Lt ovary D1 ?2.5 cm Lt ovary D2 ?1.9 cm Lt ovary D3 ?2.6 cm Lt ovary mean ??2.3 cm Lt ovary vol ?? 6.3 cm cubed Method ======== Voluson E10, Transabdominal ultrasound e xamination. View: Limited by maternal habitus. Limited by posit ion. Impression [id number] Obstetrical ultrasound with and maternal evaluation This is a gutierrez gestation. Biometry is consistent with early ultras ound dating. The right foot is suboptimally seen. Otherwise, anatomy appears normal as noted above; however, ultrasound hamida ot detect all anomalies. There is trunk and extr emity movement noted. The amniotic fluid volume appears normal. Follow-up Follow-up as clinically indicated. DATE OF SERVICE: 04/23/2018 Procedure Note Josephine Astudillo MD - 04/23/2018 Indication BMI 37.2. Screening. History ======= General History Height 185 cm Height (ft) 6 ft Height (in) 1 in Previous Outcomes 1 Maternal Assessment Height 185 cm Height (ft) 6 ft Height (in) 1 in Physical Exam Initial weight 128 kg Initial weight (lb) 282 lb Initial BMI 37.21 kg/m? Number of fetuses: 1. Dating ======= Method of dating: based on the external assessment Stated Dating on: 02/01/2018 GA at stated dating date 8 w + 3 d GA by stated dating 20 w + 0 d MANUEL by stated datin09/10/2018 Ultrasound examination on: 04/23/2018 GA by U/S based upon: AC, BPD, Femur GA by U/S 20 w + 0 d MANUEL by U/S: 09/10/2018 Assigned: Dating performed on 04/23/2018 , based on the external assessment (on 02/01/2018) Assigned GA 20 w + 0 d Assigned MANUEL: 09/10/2018 General Evaluation Cardiac activity: Present. FHR 149 bpm. movements: visualized. Presentation: rubén breech. Placenta: posterior. Umbilical cord: Cord vessels: 3 vessel c ord. Cord insertion: placental insertion: normal. Amniotic fluid: Amount of AF: normal. Biometry Biometry BPD 45.4 mm 38% 19w 5d Hadlock OFD 62.1 mm 88% 21w 2d Daniel HC 172.6 mm 44% Chervenak AC 147.4 mm 45% 20w 0d Hadlock Femur 32.5 mm 69% 20w 2d Daniel Cerebellum tr 19.8 mm 45% 19w 5d Goldste in CM 3.2 mm 5% Nicolaides Nuchal fold 3.66 mm Humerus 31.6 mm 74% 20w 4d Daniel EFW 328 g Calculated by: Hadlock ([id number]) EFW (lb) 0 lb EFW (oz) 12 oz Cephalic index 0.73 5% Nicolaides HC / AC 1.17 55% Hadlock FL / BPD 0.72 65% Hadlock FL / AC 0.22 59% Hadlock FHR 149 bpm Head / Face / Neck Membership Director 4.9 mm Extremities / Bony Struc Foot 32.2 mm 44% Chitty Anatomy Cranium: normal Lateral ventricles: normal Choroid plexus: normal Midline falx: normal Cavum septi pellucidi: normal Cerebellum: normal Cisterna magna: normal Lips: normal Lips: in suboptimal views 4-chamber view: normal RVOT: normal LVOT: normal 3-vessel view: normal 3-gjbndy-foalxzm view: normal Cord insertion: normal Stomach: normal Kidneys: normal Bladder: normal Abdom. wall: normal Cervical spine: normal Thoracic spine: normal Lumbar spine: normal Sacral spine: normal Arms: normal Legs: normal Rt foot: not adequately visualized Gender: female Wants to know gender: yes Maternal Structures Uterus / Cervix Uterus: Appears normal Cervix: Appears normal Ovaries / Tubes / Adnexa Rt ovary: Visualized, normal appearance Rt ovary D1 2.1 cm Rt ovary D2 2.4 cm Rt ovary D3 3.0 cm Rt ovary mean 2.5 cm Rt ovary vol 7.9 cm cubed Lt ovary: Visualized, normal appearance Lt ovary D1 2.5 cm Lt ovary D2 1.9 cm Lt ovary D3 2.6 cm Lt ovary mean 2.3 cm Lt ovary vol 6.3 cm cubed Method ======== Voluson E10, Transabdominal ultrasound e xamination. View: Limited by maternal habitus. Limited by posit ion. Impression [id number] Obstetrical ultrasound with and maternal evaluation This is a gutierrez gestation. Biometry is consistent with early ultras ound dating. The right foot is suboptimally seen. Otherwise, anatomy appears normal as noted above; however, ultrasound hamida ot detect all anomalies. There is trunk and extr emity movement noted. The amniotic fluid volume appears normal. Follow-up Follow-up as clinically indicated. DATE OF SERVICE: 04/23/2018 Performing Organization Address City/State/ZIP Code Phon e Number [facility] RADIOLOGY MATERNAL MEDICINE ACC GLUCOSE-1HR GESTATIONAL SCREEN (03/01/2018 14:17 EDT) Glucose Dose Not Given g [facility] LABORATORY SERVICES Glucose-1hr Gest 86 50 - [address] [facility] Scn Comment: mg/dl LABORATORY A one hour glucose greater than or equal to 135 mg/dl SERVICES should be further evaluated with a formal three hour glucose tolerance test. Specimen Blood specimen (specimen) - Blood Performing Organization Address City/State/ZIP Code Phon e Number [facility]OR[facility]ORY [address] [place] [address] SERVICES documented in this encounter Visit Diagnoses Diagnosis Encounter for supervision of normal firs t in second trimester - Primary Supervision of normal first BMI 39.0-39.9,adult Body Mass Index 39.0-39.9, adult documented in this encounter Care Teams Jewel Staker Relationship Specialty Start Date End Date None, Provider PCP - General 01/29/18 05/19/18 documented as of this encounter
--- OUTSIDE RECORDS SUMMARY | 2021-11-14 12:00 | XMS_ITS | Encounter Summary ---
:1995 Author Organization [facility] Address [address] [place] [address] Care Team Providers Name Role Phone None, Provider Primary Care Provider Unavailable Encounter Details Date Type Department Care Team Description 01/31/2018 Results Only [facility] Yazan Noyola, Women's Services - [facility] [address] [address] [address], [place] [id number] (Wo rk) Social History Tobacco Use Types [...] on file documented as of this encounter Plan of Treatment Not on filedocumented as of this encounter Procedures Procedure Name Priority Date/Time Associated Diagnosis Comme nts PAP TEST- RESULT Routine 01/31/2018 0:00 EDT Resu lts for this ONLY procedure are i n the results section. documented in this encounter Results PAP TEST- RESULT ONLY (01/31/2018 0:00 EDT) Pathology Report: CYTOPATHOLOGY REPORT [facility] Reports generated via electronic interface contain shyann ginal data; SERVICES however they are lacking the format of the original re port. Caution should be taken when reading/interpreting unfo rmatted reports. Name: ? ANN MARCELO ? Accession #: ? [id number] : ? 1995 (Age: 2 2) ??F ?Collect Date: ? 01/31 Location: ? [facility] ? Receive Date: ? 02/01/2018 Provider: ?Y[facility]AN [facility]YOL[facility] Copy to: ? Specimen/Source: ? Pap Test, Cervix/Endocervix, ThinPrep Imaging System with manual evaluation Last Menstrual Period: ? Menstrual/ Status: ? Spotting: With collection Other: ? Additional clinical information: Z34.01 V22.0 ? SPECIMEN ADEQUACY ? Satisfactory for Evaluation - transformation zone component present GENERAL CATEGORIZATION ? Negative for Intraepithelial Lesion or Malignan cy ? Document reviewed and electronically signed by: ? MEDARDO Santiago(ASCP) ? Report Date: ??02/08/2018 14:06 End of Report Specimen Performing Organization Address City/State/ZIP Code Phon e Number [facility] [address] [place] [address] SERVICES documented in this encounter Visit Diagnoses Not on filedocumented in this encounter Care Teams [employer] Repairer Relationship Specialty Start Date End Date None, Provider PCP - General 01/29/18 05/19/18 documented as of this encounter
--- OUTSIDE RECORDS SUMMARY | 2021-11-14 12:00 | XMS_ITS | Encounter Summary ---
:1995 Author Organization [facility] Address [address] [place] [address] Care Team Providers Name Role Phone Hi Cadena MD Primary Care Provider Reason for Visit Reason Comments New Patient Visit transfer from [facility], pt is 31 weeks seeing [facility] OB Encounter Details Date Type Department Care Team Description 07/08/2018 Office Visit [facility] Hi Cadena, Obesi ty (BMI 30-39.9) Family Medicine - (Primary Dx) [address] [phone] Social History Tobacco Use Types Packs/Day [...] Sign Reading Time Taken Comments Blood Pressure 118/60 07/08/2018 1037 EST Pulse 80 07/08/2018 1037 EST Temperature 36.6 ??C (97.9 ??F) 07/08/2018 1037 EST Respiratory Rate - - Oxygen Saturation - - Inhaled Oxygen Concentration - - Weight 136.1 kg (300 lb) 07/08/2018 1037 EST Height 180.3 cm (5' 11) 07/08/2018 1037 EST Body Mass Index 41.84 07/08/2018 1037 EST documented in this encounter Progress Notes Hi Cadena MD - 07/08/2018 1030 EST Subjective: Chief Complaint Patient presents with ??? New Patient Visit transfer from [facility], pt is 31 weeks seeing [facility] OB HPI Very pleasant 23-year-old white female presents to establish with this PCP today. She is about 31 weeks . She has had an unremarkable thus far although she has struggled with herweight and there are some concerns about early screening for gestational diabetes which I believe may have already been done hopefully. She has a prior history of anxiety and depression which was situational when she was living outside at the [place] area which she feels is resolved. She was previously on some Lexapro which did not help and some other drug. She feels fine now. She lives with her significant other who is the father the baby. He works at night for [employer]. She is not currently working. She does not smoke and quit when she got . Does not drink alcohol or use any recreational drugs. She is hoping I can care for her baby after which I told her I was happy to do. She has a history of nephrolithiasis last episode in 2016. She is unclear whether they were calcium oxalate which is most likely possibility. Patient Active Problem List Diagnosis ??? Anxiety and depression ??? Supervision of normal ??? BMI 39.0-39.9,adult ??? Nephrolithiasis Past Medical History: Diagnosis Date ??? Anxiety [...] calc,iron,folic ( #2 ORAL) Take by mouth. No current facility-administered medications on file prior [...] during ROS - See HPI Objective: BP 118/60 Pulse 80 Temp 36.6 ??C (97.9 ??F) (Tympanic) Ht 180.3 cm (71) Wt (!) 136.1 kg (300 lb) LMP 11/20/2017 (Exact Date) BMI 41.84 kg/m?? Physical Exam Well-developed well-nourished pleasant female in no acute distress TMs: Pearly garcia ear canals clear Neck: Supple no adenopathy Throat: Nonerythematous no exudates noted Lungs: Clear to auscultation and percussion with no rales rhonchi or wheezes Heart: Regular rate and rhythm without murmur Abdomen: Soft nontender gravid Extremities: No edema Assessment/Plan Ann was seen today for new patient visit. Diagnoses and all orders for this visit: Obesity (BMI 30-39.9) Counseling done today on healthy activities and healthy eating. Discussed limiting sugar sweetened beverages and juices and getting 5 servings of fruits and vegetables per day. Discussed getting plentyof protein and try to avoid refined carbohydrates. Return in about 1 year (around 07/09/2019) for preventive physical exam. documented in this encounter Plan of Treatment Not on filedocumented as of this encounter Visit Diagnoses Diagnosis Obesity (BMI 30-39.9) - Primary Obesity, unspecified documented in this encounter Care Teams Director Of Search Engine Marketing Relationship Specialty Start Date End Date Hi Cadena MD PCP - General 05/20/18 documented as of this encounter
--- OUTSIDE RECORDS SUMMARY | 2021-11-14 12:00 | XMS_ITS | Encounter Summary ---
:1995 Author Organization [facility] Address [address] [place] [address] Care Team Providers Name Role Phone None, Provider Primary Care Provider Unavailable Reason for Visit Reason Comments Initial Visit Encounter Details Date Type Department Care Team Description 01/31/[address] [facility] Maryjo Noyola, [place]: 8w2d Nurse Midwifery Program HOSPITALIST MEDICAL DIRECTOR CN - [place] [address] [facility] [address] [facility] [place], [address] [facility] [id number] [place] [address] [phone] (Wo rk) Social History Tobacco Use Types [...] Reading Time Taken Comments Blood Pressure 128/72 01/31/2018 1446 EDT Pulse - - Temperature - - Respiratory Rate - - Oxygen Saturation - - Inhaled Oxygen Concentration - - Weight 128.8 kg (284 lb) 01/31/2018 1446 EDT Height 181.6 cm (5' 11.5) 01/31/2018 1446 EDT Body Mass Index 39.06 01/31/2018 1446 EDT documented in this encounter Ordered Prescriptions Prescription Sig Dispensed Refills Start Date End Date doxylamine-pyridoxine, vit Take 2 Tabs by 30 Tab 1 01/3108/20/2018 B6, 10-10 mg tablet mouth at bedtime. documented in this encounter Discharge Disposition Disposition Code Departure Means Destination Auto Discharge documented in this encounter Progress Notes Maryjo Noyola CNM - 01/31/2018 1811 EDT Initial Subjective: Ann Pastrana is a 23 y.o. female at 10w2d who presents with her partner for an unplanned but welcomed . Pt states she forgot her depo injection. They live together in [place], Ann was living in [place] prior to moving in with Carlos whom she met this summer. 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 She is recently (finalized this month) and her ex lives 3 hrs away. Pt denies any safety concerns with her ex. Ann is not in good contact with her family but they all mostly live in [place], [place]. No regular exercise with standard [place] diet. Carlos and Ann are consciously working improving their diet together. She also quit smoking with the ! They are both thrilled about this. Current Estimated Date of Delivery: 08/27/18 based on LMP (irreg cycles) An ultrasound is pending, pt had irreg cycles Symptoms since LMP: Nausea and daily vomiting Patient Active Problem List Diagnosis ??? Anxiety and depression ??? Supervision of normal ??? BMI 39.0-39.9,adult Allergies Allergen Reactions ??? Adhesive rash ??? Ciprofloxacin Dizziness and vomiting Past obstetric history reviewed and complications noted in table. Significant OB History: first Past Medical History: Diagnosis Date ??? Anxiety and depression was formerly on meds, stopped july 2017, cannot remember med names, will find out. interested in seeing Michelle in 2nd or 3rd tri or PRN ??? Kidney stones 2017 expectant mgmt, only 1 UTI in her lifetime ??? Supervision of normal Past Surgical History: Procedure Laterality Date ??? CHOLECYSTECTOMY ??? TONSILLECTOMY Past BARN BOSS History reviewed in Chart. Family History Problem Relation Age of Onset ??? Thyroid Disease Mother pt unsure what type, mother had had partial thyroidectomy ??? High Blood Pressure Mother ??? *Other(comment) Mother monoclonal b cell lymhocytosis ??? Congenital heart defects Sister pt unsure what type, will find out Social History Social History ??? Marital status: N/A Spouse name: FOB: Carlos ??? Number of children: N/A ??? Years of education: N/A Occupational History ??? 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 Smoking status: Former Smoker ??? Smokeless tobacco: Never Used Comment: quit with ??? Alcohol use Yes Comment: quit with ??? Drug use: None Comment: past hx of mj use, not during ??? Sexual activity: Yes Partners: Male Other Topics Concern ??? Feels Safe In Home/School/Neighborhood Yes Social History Narrative Living Situation: stable partner, they also live with a roommate who will move out by the time baby is born Review of Systems: Pertinent items are noted in Subjective/HPI Objective: Vitals: 01/31/18 1446 BP: 128/72 Weight: (!) 128.8 kg (284 lb) Height: 181.6 cm (71.5) Body mass index is 39.06 kg/(m^2). See chart for complete exam. No results found for this or any previous visit (from the past 672 hour(s)). Assessment: 1. IUP at 10w2d: nausea/vomiting 2. Estimated Date of Delivery: 08/27/18 based on Last Menstrual Period. 3. Due for pap today 4. Hx anxiety/depression no current meds Plan: 1. Problem list reviewed and updated. -disc optimal nutrition during , recommended TWG of approx 15#, enc exercise during , rev'd first tri precautions -disc outline of care, rev'd midwifery model of care, disc resident invovlement -disc pt has 2 factors for baby ASA at 12 wks (nullip, BMI >30), please revisit with pt NV -disc early glucola for NV due to BMI -pt interested in seeing Michelle for hx depression/anxiety, wants to wait until second/third tri -will find out name of past anxiety/depression medication she took as will as sister's cardiac problem, please ask NV and update hx -Rx for diclegis sent to pt's pharmacy per request 2. Aneuploidy testing: declined 3. Additional testing: early glucola, pap with GC/CT collected today, will complete ANA LUISA labs today and get flu vax 4. Follow-up in1 day for dating US and 4 wks for CNM visit and early glucola 5. 90% of 60min visit spent on counseling and coordination of care. Maryjo Noyola CNM documented in this encounter Miscellaneous Notes Addendum Note - Aleisha Esqueda - 02/13/2018 1303 EDT Addended by: ALEISHA ESQUEDA on: 02/13/2018 13:03 Modules accepted: Orders documented in this encounter Plan of Treatment Scheduled Orders Name Type Priority Associated Diagnoses Order S chedule PAP TEST- ORDER ONLY Pathology Routine Encounter for superv ision Ordered: 01/31/2018 of normal first in first trimester documented as of this encounter Procedures Procedure Name Priority Date/Time Associated Diagnosis Comme nts CHLAMYDIA/N. Routine 01/31/2018 16:03 Encounter for Results fo r this GONORRHOEAE EDT supervision of procedure are in AMPLIFIED RNA, normal first the results THINPREP in first section. trimester PROFILE AND Routine 01/31/2018 16:03 Encounter for Re sults for this VARICELLA EDT supervision of procedure are in normal first the results in first section. trimester HIV 1/2 ANTIGEN AND Routine 01/31/2018 16:03 Encounter for Res ults for this ANTIBODY, 4TH EDT supervision of procedure ar e in GENERATION normal first the results in first section. trimester BACTERIAL CULTURE, Routine 01/31/2018 14:39 Encounter for Resu lts for this URINE EDT supervision of procedure are in normal first the results in first section. trimester documented in this encounter Results HIV 1/2 ANTIGEN AND ANTIBODY, 4TH GENERATION (01/31/2018 16:03 EDT) HIV 1/2 Antibody Negative Negative [facility] Comment: LABORATORY SERVICES Fourth generation assay performed on the Siemens Centaur. If acute HIV-1 infection is suspected in a high risk patient, submit plasma specimen for HIV-1 RNA quantification test. The results of this assay can be falsely lowered due to the consumption of Biotin. Specimen Blood specimen (specimen) - Blood Performing Organization Address City/[facility]/ZIP [facility] Phon e Number [facility] LABORATORY [address] [place] [address] SERVICES CHLAMYDIA/N. GONORRHOEAE AMPLIFIED RNA, THINPREP (01/31/2018 16:03 EDT) Pathologist Sig nature Chlamydia Result Negative [facility]ORATORY SERVICES GC Result Negative [facility] LABORATORY SERVICES Specimen Other (qualifier value) - Cervix, Thin P rep Vial Performing Organization Address [facility] Phon e Number [facility] [address] [place] [address] SERVICES (ABNORMAL) PROFILE AND VARICELLA (01/31/2018 16:03 EDT) ABO and Rh Type A POS [facility] LABORATORY SERVICES Antibody Screen Neg [facility] LABORATORY SERVICES Rubells IgG Ab Positive [facility] Comment: [facility] New methodology in use 08/14/16. SERVICES Positive for IgG antibodies to Rubella virus. WBC 12.33 4.0 - 12.4 [facility] LABORATORY SERVICES RBC 4.00 3.86 - 5.04 [facility] LABORATORY SERVICES Hemoglobin 12.7 11.6 - 15.2 [facility] gm/dl [facility] LAB[facility]ORY SERVICES HCT 37.6 34.9 - 44.4 % [facility] LABORATORY SERVICES MCV 94 81 - 98 fl [facility] SERVICES MCH 31.8 26.7 - 33.3 pg [facility]ORAT[facility] SERVICES MCHC 33.8 32.1 - 35.9 [facility] gm/dl [facility] RDW-CV 11.9 <14.7 % [facility] LABORATORY SERVICES RDW-SD 41.4 <50.4 fl [facility] LABORATORY SERVICES PLT 303 141 - 377 /[facility] LABORATORY SERVICES MPV 10.2 9.5 - 12.7 fl [facility] LABORATORY SERVICES Hepatitis B Negative Negative [facility] Surface Antigen Comment: [facility]ENTER LAB[facility]ATORY The results of this assay can be falsely SERVICES lowered due to the consumption of Biotin. Neutrophils 54.5 % [facility] LABORATORY SERVICES Lymphocytes 32.0 % [facility]ORAT[facility] SERVICES Monocytes 9.5 % [facility]ORAT[facility] SERVICES Eosinophils 3.0 % [facility]OR[facility] SERVICES Basophils 0.7 % [facility]ORATORY SERVICES Immature Grans 0.3 % [facility]ORATORY SERVICES ABS Neutrophils 6.71 2.20 - 8.85 [facility] LABORATORY SERVICES ABS Lymphs 3.95 (H) 1.09 - 3.30 [facility] LABORATORY SERVICES ABS Monocytes 1.17 (H) 0.1 - 0.8 K/[facility] LABORATORY SERVICES ABS Eosinophils 0.37 0.03 - 0.61 [facility] LABORATORY SERVICES ABS Basophils 0.09 0.01 - 0.11 [facility] LABORATORY SERVICES ABS Immature Grans 0.04 0 - 0.06 K/[facility] LABORATORY SERVICES Type of Diff: Automated [facility]ORAT[facility] SERVICES Syphilis Serology NegativeComment: [facility] Reference Range: CENTER LAB[facility]ATORY Negative SERVICES Varicella IgG Ab Positive [facility] Comment: [facility] Presence of detectable Varicella Zoster virus IgG antibodies. Specimen Blood specimen (specimen) - Blood Performing Organization Address City/[facility]/ZIP Code Phon e Number [facility] [address] [place] [address] SERVICES BACTERIAL CULTURE, URINE (01/31/2018 14:39 EDT) Pathologist Sig nature Result No growth [facility] LABORATOR Y SERVICES Specimen Urine (substance) - Urine Performing Organization Address City/[facility]/ZIP [facility] Phon e Number [facility] [address] [place] [address] SERVICES documented in this encounter Visit Diagnoses Diagnosis Encounter for supervision of normal firs t in first trimester - Primary Supervision of normal first documented in this encounter Historical Medications This list may reflect changes made after this encounter. Medication Sig Dispensed Refills Start Date End Date vit Take by mouth. 0 11/14/19 19 calc,iron,folic ( #2 ORAL) ascorbic acid, vitamin C, Take 250 mg by 0 09/07/2018 (VITAMIN C) 250 mg tablet mouth daily. acetaminophen (TYLENOL) Take 650 mg by 0 09/07/2018 325 mg tablet mouth every 4 hours as needed for Pain (shoulder pain). added in this encounter Orders Immunization/Injection Count Last Ordered Date First O rdered Date INFLUENZA VACCINE QUAD (FLULAVAL/FLUARIX) 1 2017 PF 0.5 ML IM (6 MOS+) documented in this encounter Care Teams Lobby Concierge Relationship Specialty Start Date End Date None, Provider PCP - General 01/29/18 05/19/18 documented as of this encounter
--- OUTSIDE RECORDS SUMMARY | 2021-11-14 12:00 | XMS_ITS | Encounter Summary ---
:1995 Author Organization [facility] Address [address] [place] [address] Care Team Providers Name Role Phone None, Provider Primary Care Provider Unavailable Reason for Referral Consult (Routine) - Closed Specialty Diagnoses / Procedures Referred By Contact Refer red To Contact Anesthesiology Diagnoses Supervision of normal first , antepartum Grace Beltran NP [address] [phone] Referral ID Status Reason Start Date Expiration Date Visits V isits Requested Authorized [id number] Closed Specialty 04/25/2018 1 1 Services Required Question Answer Reason for Request: reports history of poor reac tion with anesthesia following 2 surgeries, currently pregnan t Consult (Routine) - Closed Specialty Diagnoses / Procedures Referred By Contact Refer red To Contact Diagnoses Supervision of normal first , antepartum Grace Beltran NP [address] [phone] Referral ID Status Reason Start Date Expiration Date Visits V isits Requested Authorized [id number] Closed Specialty 04/25/2018 1 1 Services Required Question Answer What areas would you like the CHT to focus on? [facility] Patient's Weight (kg) (1 lb = 0.4536 kg): 130.2 Comments As we discussed in your visit today, frandy ponce will be contacting you from the [facility] Health Team to schedule an sohail ointment with you. If you do not hear from the CHT within a week please call the [facility] at [phone]. Reason for Visit Reason Comments Routine Visit Encounter Details Date Type Department Care Team Description 04/25/2018 Routine [facility] Grace Beltran GA: 20w2d Nurse Midwifery Program Abena cuevas NP - [place] [address], Level 4 [place] [facility] [place] [address] [place], [place] [phone] (Wo rk) Social History Tobacco Use [...] Sign Reading Time Taken Comments Blood Pressure 124/68 04/25/2018 1036 EST Pulse - - Temperature - - Respiratory Rate - - Oxygen Saturation - - Inhaled Oxygen Concentration - - Weight 130.2 kg (287 lb) 04/25/2018 1036 EST Height - - Body Mass Index 39.47 01/31/2018 1446 EDT documented in this encounter Discharge Disposition Disposition Code Departure Means Destination Auto Discharge documented in this encounter Progress Notes Grace Beltran CNM - 04/25/2018 1045 EST S: Ann Pastrana is here today for a visit at 20w2d. Feeling well. Early gender testing with [facility] kyle said they were having a boy; at [facility] told maybe a girl but not confirmed. Report says female. Really want to know gender, don't want to wait until 28w growth if possible. Mood is okay. Uncomfortable at night while sleeping, belly feels tight. using pillow. Still not smoking! Just signed up for Medicaid. Interested in [facility] referral. Hasn't found pedi but has called a few offices and not received calls back. Unsure about CBE. Reports difficulty w anesthesia following 2 surgeries - hard to rouse. Traveling to [place] for holiday. O: Vitals: BP: 124/68 Weight : (!) 130.2 kg (287 lb) Heart Rate: 155 Movement: Present [facility]ETTE: normal female A: 23 y.o. at 20w2d IUP BMI 39 Anxiety/depression Poor sleep Quit smoking RH pos P: Disc q4w growth ultrasounds in 3rd tri Disc travel precautions/DVT warning signs and prevention WHI referral and anesthesia consult ordered Enc to schedule visit jerzy Rae CNM for planning Encouraged to sign up for CBE, disc Beginnings Encouraged to pick pedi, disc options in area Reviewed warning signs/when to call Follow up in 4 wks, sooner PRN documented in this encounter Plan of Treatment Scheduled Referrals Name Type Priority Associated Order Schedule Diagnoses AMB CONS/FOLLOW UP Outpatient Routine Supervision of Ordered : COMMUNITY [facility] TEAM Referral normal first 2017 , antepartum AMB CONS/FOLLOW UP Outpatient Routine Supervision of Ordered : ANESTHESIOLOGY Referral normal first 04/25/2018 , antepartum documented as of this encounter Visit Diagnoses Diagnosis Supervision of normal first , a ntepartum - Primary documented in this encounter Care Teams Middleware Developer Relationship Specialty Start Date End Date None, Provider PCP - General 01/29/18 05/19/18 documented as of this encounter
--- OUTSIDE RECORDS SUMMARY | 2021-11-14 12:00 | XMS_ITS | Encounter Summary ---
:1995 Author Organization [facility] Address [address] [place] [address] Care Team Providers Name Role Phone Hi Cadena MD Primary Care Provider Encounter Details Date Type Department Care Team Description 07/03/2018 Documentation Visit [facility] Nurse Aleisha Esqueda, Midwifery Program - RN [place] [place] [address] Social History Tobacco Use Types [...] this encounter Progress Notes Aleisha Esqueda - 07/03/2018 1329 EST Please see scanned CHOB U/S from 06/20/18. documented in this encounter Plan of Treatment Not on filedocumented as of this encounter Visit Diagnoses Not on filedocumented in this encounter Care Teams Supervisor Labor Gang Relationship Specialty Start Date End Date Hi Cadena MD PCP - General 05/20/18 documented as of this encounter
--- OUTSIDE RECORDS SUMMARY | 2021-11-14 12:00 | XMS_ITS | Encounter Summary ---
:1995 Author Organization [facility] Address [address] [place] [address] Care Team Providers Name Role Phone Hi Cadena MD Primary Care Provider Reason for Visit Reason Onset Date Comments 08/16/2018 Encounter Details Date Type Department Care Team Description 08/16/2018 Telephone [facility] Nurse Aleisha Esqueda RN Midwifery Program - [address] [place] [address] Social History Tobacco Use Types [...] this encounter Miscellaneous Notes Telephone Encounter - Aleisha Esqueda - 08/16/2018 1116 EDT TC from Ann who is returning Beltran, CNM's TC. Recommendations for breech presentation discussed per CNM note. Pt verbalized understanding of these recommendations and will look into them this weekend. Ann again verbalized that she is declining a version. No further questions at this time. Willcall back prior to next APV if needed. documented in this encounter Plan of Treatment Not on filedocumented as of this encounter Visit Diagnoses Not on filedocumented in this encounter Care Teams Fringe Weaver Relationship Specialty Start Date End Date Hi Cadena MD PCP - General 05/20/18 documented as of this encounter
--- OUTSIDE RECORDS SUMMARY | 2021-11-14 12:00 | XMS_ITS | Encounter Summary ---
:1995 Author Organization [facility] Address [address] [place] [address] Care Team Providers Name Role Phone None, Provider Primary Care Provider Unavailable Encounter Details Date Type Department Care Team Description 02/17/2018 Documentation Visit [facility] Nurse Aleisha Esqueda, Midwifery Program - RN [place] [address] [place] [address] Social History Tobacco Use Types [...] this encounter Progress Notes Aleisha Esqueda - 02/17/2018 1313 EDT Please see scanned CHOB U/S from 02/01/18 documented in this encounter Plan of Treatment Not on filedocumented as of this encounter Visit Diagnoses Not on filedocumented in this encounter Care Teams Rn Military Relationship Specialty Start Date End Date None, Provider PCP - General 01/29/18 05/19/18 documented as of this encounter
--- OUTSIDE RECORDS SUMMARY | 2021-11-14 12:00 | XMS_ITS | Encounter Summary ---
:[address] [facility] Address [address] [place] [address] Care Team Providers Name Role Phone Hi Cadena MD Primary Care Provider Encounter Details Date Type Department Care Team Description 07/24/2018 Documentation Visit [facility] Nurse Aleisha Esqueda, Midwifery Program - RN [place] [place] [address] Social History Tobacco Use Types [...] this encounter Progress Notes Aleisha Esqueda - 07/24/2018 1545 EDT Please see scanned CHOB U/S from 07/19/18. documented in this encounter Plan of Treatment Not on filedocumented as of this encounter Visit Diagnoses Not on filedocumented in this encounter Care Teams Safety Scientist Relationship Specialty Start Date End Date Hi Cadena MD PCP - General 05/20/18 documented as of this encounter
--- OUTSIDE RECORDS SUMMARY | 2021-11-14 12:00 | XMS_ITS | Encounter Summary ---
:1995 Author Organization [facility] Address [address] [place] [address] Care Team Providers Name Role Phone None, Provider Primary Care Provider Unavailable Encounter Details Date Type Department Care Team Description 01/29/2018 Abstract [facility] Nurse Aleisha Esqueda , RN Midwifery Program - [place] [address] [place] [address] Social History Tobacco Use Types [...] on filedocumented in this encounter Care Teams Client Executive Relationship Specialty Start Date End Date None, Provider PCP - General 01/29/18 05/19/18 documented as of this encounter
[2021-11-15 15:25] LABS: GC Result Negative (Negative)
[2021-11-15 16:21] LABS: Chlamydia Result Positive (Negative)
== END 2021-11-14 11:47 | disposition home or self-care (01) ==
LOC: LBN 11:46
PROVIDERS: PCP Family Medicine; Visit Provider Obstetrics & Gynecology
DX: Z20.2 Contact with and (suspected) exposure to infections with a predominantly sexual mode of transmission (principal); N87.0 Mild cervical dysplasia; R87.612 Low grade squamous intraepithelial lesion on cytologic smear of cervix (LGSIL)
CPT/HCPCS: 87491; 87591; 88305

== ENCOUNTER 2021-12-23 17:16 | Outpatient (REF) | payer MEDICAID, SELFPAY ==
[2021-12-24 13:19] LABS: GC Result Negative (Negative)
[2021-12-26 08:40] LABS: Chlamydia Result Positive (Negative)
== END 2021-12-23 17:17 | disposition home or self-care (01) ==
LOC: LBN 17:16
PROVIDERS: PCP Family Medicine; Visit Provider Obstetrics & Gynecology
DX: Z20.2 Contact with and (suspected) exposure to infections with a predominantly sexual mode of transmission (principal)
CPT/HCPCS: 87491; 87591

== ENCOUNTER 2022-02-24 13:02 | Outpatient (REF) | payer MEDICAID, SELFPAY ==
[2022-02-26 14:40] LABS: Chlamydia Result Negative (Negative); GC Result Negative (Negative)
== END 2022-02-24 13:03 | disposition home or self-care (01) ==
LOC: LBN 13:02
PROVIDERS: PCP Family Medicine; Visit Provider Obstetrics & Gynecology
DX: A64 Unspecified sexually transmitted disease (principal)
CPT/HCPCS: 87491; 87591